=== PATIENT | female | born 1975 | race Caucasian/White ===

== ENCOUNTER → 2017-06-28 | Outpatient (CLI) | payer BC | END | disposition home or self-care (01) | LOC: RADMRIMAIN 17:26 | PROVIDERS: ATTEND Nurse Practitioner Family | DX: Z53.9 Procedure and treatment not carried out, unspecified reason (principal) ==

== ENCOUNTER → 2018-04-20 | Outpatient (CLI) | payer BC ==
[2018-04-20 09:52] LABS: Basophils % (A) 0 %; Eosinophils # (A) 0.1 k/uL (0-0.7); Eosinophils % (A) 1 %; HCT 41.4 % (34.0-46.0); HGB 13.3 gm/dL (11.4-16.0); Lymphocytes # (A) 1.3 k/uL (1.0-4.8); Lymphocytes % (A) 17 %; MCH 28.5 pg (25.0-35.0); MCHC 32.1 g/dL (31.0-37.0); MCV 88.7 fL (80.0-100.0); Mean Platelet Volume 6.6; Monocytes # (A) 0.4 k/uL (0-1.0); Monocytes % (A) 5 %; Neutrophils # (A) 5.6 k/uL (1.3-7.7); Neutrophils % (A) 75 %; Platelet Count 259 k/uL (150-450); RBC 4.67 m/uL (3.80-5.40); RDW 12.9 % (11.5-15.5); WBC 7.5 k/uL (3.8-10.6)
[2018-04-20 10:06] LABS: ALT 71 U/L (9-52); AST 81 U/L (14-36); Albumin 4.3 g/dL (3.5-5.0); Alkaline Phosphatase 134 U/L (38-126); Anion Gap 10 mmol/L; Blood Urea Nitrogen 19 mg/dL (7-17); Calcium 9.4 mg/dL (8.4-10.2); Carbon Dioxide 26 mmol/L (22-30); Chloride 103 mmol/L (98-107); Cholesterol 207 mg/dL (<200); Glucose 87 mg/dL (74-99); HDL Cholesterol 60 mg/dL (40-60); LDL Cholesterol,Calculated 134 mg/dL (0-99); Potassium 4.4 mmol/L (3.5-5.1); Sodium 139 mmol/L (137-145); Total Bilirubin 0.5 mg/dL (0.2-1.3); Total Protein 7.3 g/dL (6.3-8.2); Triglycerides 64 mg/dL (<150)
== END | disposition home or self-care (01) ==
LOC: LABWHC1 08:58
PROVIDERS: ATTEND Physician Assistant
DX: E11.65 Type 2 diabetes mellitus with hyperglycemia (principal); E66.9 Obesity, unspecified; E78.2 Mixed hyperlipidemia; Z85.6 Personal history of leukemia
CPT/HCPCS: 36415; 80053; 80061; 84443; 85025

== ENCOUNTER 2018-07-30 08:59 | Inpatient (IN) | payer BC ==
[2018-07-30] MEDS ORDERED: IPRATROPIUM-ALBUTEROL 3 ML NEB INHALATION PRN (09:31)
[2018-07-30] MEDS: SODIUM CHLORIDE 0.9% 1,000 ML IV SCH ×2 (10:21→21:06)
[2018-07-30] MEDS: methylPREDNISolone SOD SUCCI 250 MG in SODIUM CHLORIDE 0.9% 100 ML IVPB SCH ×3 (10:21→21:06)
[2018-07-30 10:42] LABS: Basophils % (A) 0 %; Eosinophils # (A) 0.1 k/uL (0-0.7); Eosinophils % (A) 2 %; HCT 41.1 % (34.0-46.0); HGB 13.3 gm/dL (11.4-16.0); Lymphocytes % (A) 24 %; MCH 29.7 pg (25.0-35.0); MCHC 32.3 g/dL (31.0-37.0); MCV 91.9 fL (80.0-100.0); Mean Platelet Volume 6.2; Monocytes # (A) 0.5 k/uL (0-1.0); Monocytes % (A) 6 %; Neutrophils # (A) 5.6 k/uL (1.3-7.7); Neutrophils % (A) 67 %; Platelet Count 219 k/uL (150-450); RBC 4.47 m/uL (3.80-5.40); WBC 8.4 k/uL (3.8-10.6)
[2018-07-30] MEDS ORDERED: PNEUMOCOCCAL VACC-PNEUMOVAX 23 25 MCG/0.5 ML VIAL IM ONE (10:49)
[2018-07-30 10:52] LABS: ALT 39 U/L (9-52); AST 20 U/L (14-36); Albumin 3.5 g/dL (3.5-5.0); Alkaline Phosphatase 86 U/L (38-126); Anion Gap 7 mmol/L; Blood Urea Nitrogen 27 mg/dL (7-17); Calcium 9.2 mg/dL (8.4-10.2); Carbon Dioxide 25 mmol/L (22-30); Chloride 107 mmol/L (98-107); Glucose 99 mg/dL (74-99); Potassium 4.1 mmol/L (3.5-5.1); Sodium 139 mmol/L (137-145); Total Bilirubin 0.5 mg/dL (0.2-1.3); Total Protein 6.5 g/dL (6.3-8.2)
[2018-07-30 11:41] LABS: Glucose,Whole Blood 87 mg/dL (75-99)
[2018-07-30] MEDS: INSULIN ASPART 100 UNIT/ML 1 ML 10 ML VIAL SQ SCH ×3 (11:46→21:06)
[2018-07-30] MEDS: IPRATROPIUM-ALBUTEROL 3 ML NEB INHALATION SCH ×3 (11:55→20:49)
[2018-07-30] MEDS ORDERED: INSULIN ASPART 100 UNIT/ML 1 ML 10 ML VIAL SQ SCH (12:30)
[2018-07-30] MEDS ORDERED: valACYclovir HCL 1,000 MG TABLET PO PRN (12:41)
[2018-07-30] MEDS ORDERED: ALPRAZolam 0.25 MG TAB PO PRN (12:41)
[2018-07-30] MEDS ORDERED: ESTRADIOL 0.1 MG/GM VAGINAL CREAM 42.5 GM TUBE VAGINAL SCH (12:45)
--- NOTE | 2018-07-30 12:46 | P.CNPUL ---
History of Present Illness Consult date: 07/30/18 Reason for consult: dyspnea, cough, asthma, hypoxemia, abnormal CXR/CT Chief complaint: Shortness of breath, chronic xqdlq-cmrftx-fsah disease. History of present illness: Pulmonary consult dated 07/30/2018 This is a 43-year-old female status post allogeneic bone marrow transplant back in 1998. 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 The patient's a bone marrow transplant was done at [facility]. More recently, beginning in March of last year, I started seeing the patient because of increasing and progressive shortness of breath. I suspected that she had chronic drhlq-jwbmmt-bgec disease in the form of bronchiolitis obliterans syndrome. The patient was trialed on breathing treatments. Seemed to help a bit. In addition we added some inhalers. That also seemed to help initially. More recently, because of worsening symptoms of shortness of breath and cough, and because of declining lung function, the patient was given prednisone at 1 mg/kg body weight per day. She seemed to improve initially but then got worse again. For that reason, we decided to admit her to the hospital for high-dose IV Solu-Medrol. I did mention to her that should this not help things, she may be a candidate for alternative therapy including photopheresis, plasmapheresis, IVIG, rituximab, additional immunosuppressants such as cyclosporine, Prograf, CellCept, or even lung transplantation. Likely, if she does not respond, I will send her back to [facility] which is where she had her bone marrow transplantation. In addition to asthma, she has a history of diabetes gastroesophageal reflux disease and hyperlipidemia. She also has a history of hypertension. Her home medications include Advair albuterol inhaler albuterol updrafts Glucotrol omeprazole Singulair multivitamins Estrace cream ascorbic acid and Valtrex Zetia Wellbutrin lisinopril insulin glargine Lipitor and Xanax Review of Systems A 14 point review of system is positive for shortness of breath chest tightness wheezing cough. No significant phlegm production. No chest pain or chest discomfort. 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 Pt has clausterphobia. Smoking Status: Never smoker - Past Family History Father Additional Family Medical History / Comment(s): Fathr of a drug overdose. Mother Family Medical History: Coronary Artery Disease (CAD), Diabetes Mellitus Additional Family Medical History / Comment(s): Mother had CABG and aortic aneurysm repair. Medications and Allergies Home Medications Medication Instructions Recorded Confirmed Type ALPRAZolam [Xanax] 0.25 mg PO DAILY PRN 07/30/18 07/30/18 History Albuterol Inhaler [Ventolin Hfa 2 puff INHALATION RT-Q6H PRN 07/30/18 07/30/18 History Inhaler] Albuterol Nebulized [Ventolin 2.5 mg INHALATION RT-Q4H PRN 07/30/18 07/30/18 History Nebulized] Ascorbic Acid [Vitamin C] 500 mg PO DAILY 07/30/18 07/30/18 History Atorvastatin [Lipitor] 40 mg PO DAILY 07/30/18 07/30/18 History Estradiol Cream [Estrace Cream 1 gm VAGINAL DIRECTED 07/30/18 07/30/18 History 0.01%] Ezetimibe [Zetia] 10 mg PO DAILY 07/30/18 07/30/18 History Fluticasone/Salmeterol [Advair 1 inhalation PO RT-BID 07/30/18 07/30/18 History 250-50 Diskus] Insulin Glargine [Lantus] 30 unit SQ BID 07/30/18 07/30/18 History Lisinopril [Prinivil] 5 mg PO DAILY 07/30/18 07/30/18 History Montelukast [Singulair] 10 mg PO DAILY 07/30/18 07/30/18 History Multivitamin,Therapeutic [Thera] 1 tab PO DAILY 07/30/18 07/30/18 History Omeprazole 40 mg PO BID 07/30/18 07/30/18 History buPROPion HCL [Wellbutrin XL] 300 mg PO DAILY 07/30/18 07/30/18 History glipiZIDE [Glucotrol] 5 mg PO TID 07/30/18 07/30/18 History valACYclovir HCL [Valtrex] 1,000 mg PO DAILY PRN 07/30/18 07/30/18 History Allergies Allergy/AdvReac Type Severity Reaction Status Date / Time codeine Allergy Severe Anaphylaxis Verified 07/30/18 11:14 Sulfa (Sulfonamide Allergy Intermediate Rash/Hives Verified 07/30/18 11:14 Antibiotics) Physical Exam Osteopathic Statement: *. No significant issues noted on an osteopathic structural exam other than those noted in the History and Physical/Consult. Vitals: Vital Signs Temp Pulse Pulse Resp BP Pulse Ox 07/30/18 12:02 80 07/30/18 11:58 79 07/30/18 11:23 18 07/30/18 09:29 99.8 F H 97 16 107/67 94 L Intake and Output 07/29/18 07/30/18 07/30/18 22:59 06:59 14:59 Other: Weight 106 kg No acute distress, oriented 3. No justin respiratory distress. No audible wheezing. No use of accessory muscles. HEENT examination is grossly unremarkable. Mucous membranes are moist. No oral lesions. Neck supple. Full range of motion. No adenopathy thyromegaly or neck vein distention. Cardiovascular examination reveals regular rhythm rate. S1-S2 normal. No S3 or S4. No discernible murmur noted. Lungs reveal diffuse bilateral expiratory wheezes. No rhonchi or crackles are appreciated. Breath sounds are equal bilaterally. There is prolongation on forced maneuver.. Abdomen soft bowel sounds are heard. No masses or tenderness. Extremities are intact. No cyanosis clubbing or edema. Skin is without rash or lesion. Neurologic examination is brief but nonfocal. Results - Laboratory Findings CBC and BMP: 07/30/18 10:21 07/30/18 10:21 Abnormal lab findings: Abnormal Labs 07/30/18 10:21 BUN 27 H - Diagnostic Findings Additional studies: Chest x-ray, labs and medications are all reviewed. Assessment and Plan Assessment: Assessment Progressive shortness of breath and decline in lung function, related to chronic rlyzm-quxakd-zmnv disease secondary to bronchiolitis obliterans syndrome Status post allogeneic bone marrow transplant, 1998, for acute myelogenous leukemia History of diabetes History of asthma History of hypertension Hyperlipidemia Gastroesophageal reflux disease Plan: Plan dated 07/30/2018 The patient will be given high-dose IV Solu-Medrol. We'll give her 250 mg IV push every 6 hours for 3 days. The patient will receive all her other medications. We'll have the hospitalist creative services designer hypoglycemia which is down to occur because of her high doses of Solu-Medrol. She does have a history of diabetes as well. In addition, we'll put her on her other medications including long-acting beta agonist, inhaled corticosteroids, DuoNeb , and Singulair. In addition, we will resume her hypertensive medications and her medications for high cholesterol. Labs are ordered. X-ray is ordered. Prognosis is guarded. I did spend a great deal time talking to her about the issues down the road including ALTERNATIVE therapies as mentioned above. This would include but not limited to rituximab, antithymocyte globulin, plasmapheresis, photopheresis, IVIG, and the addition of antirejection medication such as CellCept, cyclosporine, or Prograf. Time with Patient: Greater than 30
--- NOTE | 2018-07-30 12:51 | P.HPIM ---
History of Present Illness 43-year-old with history of bone marrow transplant is being admitted for IV steroids for possible lsajg-gbseih-deuq reaction in the lung rejection. Patient had acute myelogenous leukemia and bone marrow transplant in 1998. Patient does have some shortness of breath Pulmonary function tests are progressively getting worse. Patient does have diabetes mellitus her Lantus dose was increased to 30 units twice a day and is all and also takes glipizide since patient is on high doses of steroids increase the Lantus to 45 units twice a day along with steroids scale insulin. Patient denied any fever chills. Review of Systems REVIEW OF SYSTEMS: CONSTITUTIONAL: No fever, no malaise, no fatigue. HEENT: No recent visual problems or hearing problems. Denied any sore throat. CARDIOVASCULAR: No chest pain, orthopnea, PND, no palpitations, no syncope. PULMONARY:no cough, no hemoptysis. GASTROINTESTINAL: No diarrhea, no nausea, no vomiting, no abdominal pain. Normoactive bowel sounds. NEUROLOGICAL: No headaches, no weakness, no numbness. HEMATOLOGICAL: Denies any bleeding or petechiae. GENITOURINARY: Denies any burning micturition, frequency, or urgency. MUSCULOSKELETAL/RHEUMATOLOGICAL: Denies any joint pain, swelling, or any muscle pain. ENDOCRINE: Denies any polyuria or polydipsia. The rest of the 14-point review of systems is negative. 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 Pt has clausterphobia. Smoking Status: Never smoker - Past Family History Father Additional Family Medical History / Comment(s): Fathr of a drug overdose. Mother Family Medical History: Coronary Artery Disease (CAD), Diabetes Mellitus Additional Family Medical History / Comment(s): Mother had CABG and aortic aneurysm repair. Medications and Allergies Home Medications Medication Instructions Recorded Confirmed Type ALPRAZolam [Xanax] 0.25 mg PO DAILY PRN 07/30/18 07/30/18 History Albuterol Inhaler [Ventolin Hfa 2 puff INHALATION RT-Q6H PRN 07/30/18 07/30/18 History Inhaler] Albuterol Nebulized [Ventolin 2.5 mg INHALATION RT-Q4H PRN 07/30/18 07/30/18 History Nebulized] Ascorbic Acid [Vitamin C] 500 mg PO DAILY 07/30/18 07/30/18 History Atorvastatin [Lipitor] 40 mg PO DAILY 07/30/18 07/30/18 History Estradiol Cream [Estrace Cream 1 gm VAGINAL DIRECTED 07/30/18 07/30/18 History 0.01%] Ezetimibe [Zetia] 10 mg PO DAILY 07/30/18 07/30/18 History Fluticasone/Salmeterol [Advair 1 inhalation PO RT-BID 07/30/18 07/30/18 History 250-50 Diskus] Insulin Glargine [Lantus] 30 unit SQ BID 07/30/18 07/30/18 History Lisinopril [Prinivil] 5 mg PO DAILY 07/30/18 07/30/18 History Montelukast [Singulair] 10 mg PO DAILY 07/30/18 07/30/18 History Multivitamin,Therapeutic [Thera] 1 tab PO DAILY 07/30/18 07/30/18 History Omeprazole 40 mg PO BID 07/30/18 07/30/18 History buPROPion HCL [Wellbutrin XL] 300 mg PO DAILY 07/30/18 07/30/18 History glipiZIDE [Glucotrol] 5 mg PO TID 07/30/18 07/30/18 History valACYclovir HCL [Valtrex] 1,000 mg PO DAILY PRN 07/30/18 07/30/18 History Allergies Allergy/AdvReac Type Severity Reaction Status Date / Time codeine Allergy Severe Anaphylaxis Verified 07/30/18 11:14 Sulfa (Sulfonamide Allergy Intermediate Rash/Hives Verified 07/30/18 11:14 Antibiotics) Physical Exam Vitals: Vital Signs Temp Pulse Pulse Resp BP Pulse Ox 07/30/18 12:02 80 07/30/18 11:58 79 07/30/18 11:23 18 07/30/18 09:29 99.8 F H 97 16 107/67 94 L Intake and Output 07/29/18 07/30/18 07/30/18 22:59 06:59 14:59 Other: Weight 106 kg PHYSICAL EXAMINATION: GENERAL: The patient is alert and oriented x3, not in any acute distress. Well developed, well nourished. HEENT: Pupils are round and equally reacting to light. EOMI. No scleral icterus. No conjunctival pallor. Normocephalic, atraumatic. No pharyngeal erythema. No thyromegaly. CARDIOVASCULAR: S1 and S2 present. No murmurs, rubs, or gallops. PULMONARY: Chest is clear to auscultation, no wheezing or crackles. ABDOMEN: Soft, nontender, nondistended, normoactive bowel sounds. No palpable organomegaly. MUSCULOSKELETAL: No joint swelling or deformity. EXTREMITIES: No cyanosis, clubbing, or pedal edema. NEUROLOGICAL: Gross neurological examination did not reveal any focal deficits. SKIN: No rashes. Results CBC & Chem 7: 07/30/18 10:21 07/30/18 10:21 Labs: Abnormal Lab Results - Last 24 Hours (Table) 07/30/18 Range/Units 10:21 BUN 27 H (7-17) mg/dL Thrombosis Risk Factor Assmnt - Choose All That Apply Any of the Below Risk Factors Present?: Yes Each Factor Represents 1 point: Age 41-60 years, Obesity (BMI >25) Other Risk Factors: Yes Each Risk Factor Represents 2 Points: Malignancy Other congenital or acquired thrombophilia - If yes, enter type in comment: No Thrombosis Risk Factor Assessment Total Risk Factor Score: 4 Thrombosis Risk Factor Assessment Level: Moderate Risk Assessment and Plan Plan: Progressive shortness of breath with the declining lung function possibility of chronic dleri-ootbex-wufb reaction affecting the lung: Patient is on high-dose steroids which will be continued patient is on empiric azithromycin and Valtrex which will be continued patient will need GI prophylaxis due to high-dose steroids -History of myelogenous leukemia status post bone marrow transplant -Uncontrolled blood sugars type 2 diabetes mellitus: Uncontrolled blood sugars and elevated blood sugars secondary to systemic steroids further management as mentioned in the history -Hypertension -Hyperlipidemia -Gastroesophageal reflux disease For above-mentioned chronic medical problems patient will be resumed and continued on appropriate home medications.
[2018-07-30] MEDS: AZITHROMYCIN 250 MG TAB PO SCH (12:54)
--- NOTE | 2018-07-30 13:58 | XR ---
EXAMINATION TYPE: XR chest 2V DATE OF EXAM: 07/30/2018 COMPARISON: Prior chest x-ray December 03, 2017 HISTORY: History of asthma with shortness of breath TECHNIQUE: Frontal and lateral views of the chest are obtained. FINDINGS: Stable mild central peribronchial wall thickening. There is no focal air space opacity, ple ural effusion, or pneumothorax seen. The cardiac silhouette size is within normal limits. The osse ous structures are intact. IMPRESSION: Overall stable findings, mild central peribronchial cuffing may be product of bronchitis or reactive airway disease. Correlate for acute asthma exacerbation.
[2018-07-30 16:59] LABS: Glucose,Whole Blood 339 mg/dL (75-99)
[2018-07-30] MEDS: PANTOPRAZOLE 40 MG TABLET PO SCH (17:58)
[2018-07-30] MEDS: glipiZIDE 5 MG TAB PO SCH (17:58)
[2018-07-30 19:26] LABS: Hemoglobin A1C 9.5 % (4.0-6.0)
[2018-07-30] MEDS ORDERED: BUDESONIDE 0.5 MG/2 ML NEBU INHALATION SCH (20:00)
[2018-07-30 20:36] LABS: Glucose,Whole Blood 301 mg/dL (75-99)
[2018-07-30] MEDS: BUDESONIDE 1 MG/2 ML NEBU INHALATION SCH (20:49)
[2018-07-30] MEDS: FORMOTEROL FUMARATE 20 MCG/2 ML NEBU INHALATION SCH (20:49)
[2018-07-30] MEDS: INSULIN DETEMIR 100 UNIT/ML 10 ML VIAL SQ SCH (21:06)
[2018-07-30] MEDS: MONTELUKAST 10 MG TAB PO SCH (21:06)
[2018-07-31] MEDS: methylPREDNISolone SOD SUCCI 250 MG in SODIUM CHLORIDE 0.9% 100 ML IVPB SCH ×4 (04:35→21:28)
[2018-07-31] MEDS: FORMOTEROL FUMARATE 20 MCG/2 ML NEBU INHALATION SCH ×2 (06:58→20:11)
[2018-07-31] MEDS: IPRATROPIUM-ALBUTEROL 3 ML NEB INHALATION SCH ×4 (06:58→20:11)
[2018-07-31] MEDS: BUDESONIDE 1 MG/2 ML NEBU INHALATION SCH ×2 (06:59→20:11)
[2018-07-31 07:17] LABS: Glucose,Whole Blood 233 mg/dL (75-99)
[2018-07-31] MEDS: INSULIN DETEMIR 100 UNIT/ML 10 ML VIAL SQ SCH ×2 (08:18→21:29)
[2018-07-31] MEDS: PANTOPRAZOLE 40 MG TABLET PO SCH ×2 (08:19→18:04)
[2018-07-31] MEDS: INSULIN ASPART 100 UNIT/ML 1 ML 10 ML VIAL SQ SCH ×4 (08:19→21:29)
[2018-07-31] MEDS: glipiZIDE 5 MG TAB PO SCH ×3 (08:20→18:04)
[2018-07-31] MEDS: AZITHROMYCIN 250 MG TAB PO SCH (08:20)
[2018-07-31] MEDS: buPROPion XL 300 MG TAB.ER.24H PO SCH (08:20)
[2018-07-31] MEDS: LISINOPRIL 5 MG TAB PO SCH (08:20)
[2018-07-31] MEDS: EZETIMIBE 10 MG TAB PO SCH (08:20)
[2018-07-31] MEDS: ATORVASTATIN 40 MG TAB PO SCH (08:20)
[2018-07-31] MEDS ORDERED: INSULIN DETEMIR 100 UNIT/ML 10 ML VIAL SQ ONE (11:00)
[2018-07-31] MEDS: ACETAMINOPHEN TAB 325 MG TAB PO PRN (12:07)
[2018-07-31 12:14] LABS: Glucose,Whole Blood 319 mg/dL (75-99)
[2018-07-31 12:20] VITALS: BMI 42.7
[2018-07-31] MEDS: SODIUM CHLORIDE 0.9% 1,000 ML IV SCH (13:04)
--- NOTE | 2018-07-31 13:44 | P.PN ---
Subjective Progress Note Date: 07/31/18 Principal diagnosis: Shortness of breath, xmixj-yhfcfa-ibxr disease, bronchiolitis obliterans syndrome Progress note dated 07/31/2018 43-year-old female with a history of chronic bronchial asthma and a history of previous allogenic bone marrow transplant for acute myelogenous leukemia. Unfortunately, the patient has developed chronic qznaj-krnjft-crmp disease in the lung in the form of bronchiolitis obliterans syndrome. She was tried on bronchodilators and inhaled corticosteroids with only minimal benefit. Subsequent to that, she received low and then high-dose prednisone at 1 mg/kg body weight. Despite that, she did not improve and her lung function was declining. Hence, she was admitted to the hospital for high-dose Solu-Medrol. She is getting 250 mg of Solu-Medrol IV push every 6 hours for 12 doses. If this does not work, the patient will need alternative therapy such as rituximab , cirrhosis, plasmapheresis, IVIG, or other immunosuppressives. In addition, should she not respond to any of these therapies, she should be evaluated for lung transplantation. I likely will send her back to [facility] for evaluation should she not respond. I am happy to report today that she is feeling much better. She is much less short of breath. Also exam is much improved. I appreciate the help from our hospitalist colleagues who are managing her blood sugar. Objective - Vital Signs Vital signs: Vital Signs Temp 97.7 F 07/31/18 12:41 Pulse 96 07/31/18 12:47 Resp 16 07/31/18 12:47 BP 115/57 07/31/18 12:41 Pulse Ox 96 07/31/18 12:41 Intake & Output 07/30/18 07/31/18 07/31/18 18:59 06:59 18:59 Intake Total 120 Balance 120 Weight 106 kg 106 kg Intake: Oral 120 Other: Voiding Method Toilet Toilet # Voids 2 1 - Exam No acute distress, oriented 3. No justin respiratory distress. No audible wheezing. No use of accessory muscles. HEENT examination is grossly unremarkable. Mucous membranes are moist. No oral lesions. Neck supple. Full range of motion. No adenopathy thyromegaly or neck vein distention. Cardiovascular examination reveals regular rhythm rate. S1-S2 normal. No S3 or S4. No discernible murmur noted. Lungs reveal diffuse bilateral expiratory wheezes. No rhonchi or crackles are appreciated. Breath sounds are equal bilaterally. There is prolongation on forced maneuver. Breath sounds are much improved today compared to yesterday's examination. Abdomen soft bowel sounds are heard. No masses or tenderness. Extremities are intact. No cyanosis clubbing or edema. Skin is without rash or lesion. Neurologic examination is brief but nonfocal. - Labs CBC & Chem 7: 07/30/18 10:21 07/30/18 10:21 Labs: Abnormal Lab Results - Last 24 Hours (Table) 07/30/18 07/30/18 07/30/18 Range/Units 10:21 16:53 20:35 POC Glucose (mg/dL) 339 H 301 H (75-99) mg/dL Hemoglobin A1c 9.5 H (4.0-6.0) % 07/31/18 07/31/18 Range/Units 07:09 12:00 POC Glucose (mg/dL) 233 H 319 H (75-99) mg/dL Hemoglobin A1c (4.0-6.0) % Assessment and Plan Assessment: Assessment Progressive shortness of breath and decline in lung function, related to chronic lukxb-wgczgi-mglm disease secondary to bronchiolitis obliterans syndrome Status post allogeneic bone marrow transplant, 1998, for acute myelogenous leukemia History of diabetes History of asthma History of hypertension Hyperlipidemia Gastroesophageal reflux disease Plan: Plan dated 07/30/2018 The patient will be given high-dose IV Solu-Medrol. We'll give her 250 mg IV push every 6 hours for 3 days. The patient will receive all her other medications. We'll have the hospitalist air deodorizer servicer hypoglycemia which is down to occur because of her high doses of Solu-Medrol. She does have a history of diabetes as well. In addition, we'll put her on her other medications including long-acting beta agonist, inhaled corticosteroids, DuoNeb , and Singulair. In addition, we will resume her hypertensive medications and her medications for high cholesterol. Labs are ordered. X-ray is ordered. Prognosis is guarded. I did spend a great deal time talking to her about the issues down the road including ALTERNATIVE therapies as mentioned above. This would include but not limited to rituximab, antithymocyte globulin, plasmapheresis, photopheresis, IVIG, and the addition of antirejection medication such as CellCept, cyclosporine, or Prograf. Plan dated 07/31/2018 I'm happy to report that the patient seems to be improving. We'll continue with the high dose Solu-Medrol for a complete 3 days with 12 treatments. Afterwards, we'll discharge her on a modest dose of prednisone probably 40 or 50 mg a day. She will follow up with the office. We'll do a complete pulmonary function test on her. Should her lung function improved, we'll continue to observe and watch. She should continue to have symptoms or should she have declining lung function, the patient will be sent to [facility] for alternative therapy as mentioned above. Her labs and x-rays are reviewed. Everything looks okay. We'll continue to follow. In addition, I just wanted again thank are hospitalist colleagues for managing the patient's other medical problems including her diabetes hyperlipidemia and hypertension. Time with Patient: Less than 30
--- NOTE | 2018-07-31 13:58 | CDI ---
Last Revision, August 2017 Documentation Clarification Form Date: 07/31/2018 1:48:20 PM From: Vy Watson [facility], CCDS Admit Date: 07/30/2018 8:59:00 AM Patient Name: Emani Garcia Visit Number: [id number] Discharge Date: ATTENTION: The Clinical Documentation Specialists (CDI) and [facility] Coding Staff appreciate your assistance in clarifying documentation. Please respond to the clarification below the line at the bottom and electronically sign. The CDI & [facility] Coding staff will review the response and follow-up if needed. Please note: Queries are made part of the Legal Health Record. If you have any questions, please contact the author of this message via ITS. Baldev Liu , DO: Asthma is documented in your pulmonary consult. Patient history/risk factors: Graft vs Host Disease after bone marrow transplant for myelogenous leukemia, Insulin dependent diabetes, GERD, hyperlipidemia, hypertension. Clinical Indicators: Presented with SOB & cough. Radiology: CXR: Stable, mild central peribronchial cuffing may be product of bronchitis or reactive airway disease. Correlate for acute asthma exacerbation. Vital Signs: T 99.8^, R 16-18 (cough, SOB), BP 107/67, PO 94 ra Treatment: IV fl 75, Albuterol INH, IV solumedrol. Home meds: Advair albuterol inhaler albuterol updrafts Glucotrol, omeprazole Singulair multivitamins Estrace cream ascorbic acid and Valtrex, Zetia Wellbutrin, Lisinopril, Insulin glargine, Lipitor and Xanax. In your professional opinion, can you please further specify the acuity & type of asthma, if known? Acute Exacerbation o With/without Status asthmaticus o Acute lower respiratory infection o COPD (specify with or without exacerbation) o Chronic obstructive bronchitis Other, please specify Unable to determine Severity: o Mild intermittent o Mild persistent o Moderate persistent o Severe persistent o Other, please specify o Unable to determine Form or Type: o Cough variant o Exercise induced bronchospasm o Extrinsic allergic o Idiosyncratic o Intrinsic nonallergic o Late-onset o Mixed o Other, please specify o Unable to determine Acute on chronic moderate asthma MTDD
[2018-07-31 17:24] LABS: Glucose,Whole Blood 271 mg/dL (75-99)
[2018-07-31 21:15] LABS: Glucose,Whole Blood 337 mg/dL (75-99)
[2018-07-31] MEDS: MONTELUKAST 10 MG TAB PO SCH (21:27)
[2018-08-01] MEDS: SODIUM CHLORIDE 0.9% 1,000 ML IV SCH (03:40)
[2018-08-01] MEDS: methylPREDNISolone SOD SUCCI 250 MG in SODIUM CHLORIDE 0.9% 100 ML IVPB SCH ×4 (03:41→20:59)
[2018-08-01 07:47] LABS: Glucose,Whole Blood 217 mg/dL (75-99)
[2018-08-01] MEDS: INSULIN ASPART 100 UNIT/ML 1 ML 10 ML VIAL SQ SCH ×4 (08:14→20:53)
[2018-08-01] MEDS: ACETAMINOPHEN TAB 325 MG TAB PO PRN (08:14)
[2018-08-01] MEDS: INSULIN DETEMIR 100 UNIT/ML 10 ML VIAL SQ SCH ×2 (08:14→20:54)
[2018-08-01] MEDS: AZITHROMYCIN 250 MG TAB PO SCH (08:15)
[2018-08-01] MEDS: EZETIMIBE 10 MG TAB PO SCH (08:15)
[2018-08-01] MEDS: ATORVASTATIN 40 MG TAB PO SCH (08:15)
[2018-08-01] MEDS: glipiZIDE 5 MG TAB PO SCH ×3 (08:15→17:47)
[2018-08-01] MEDS: LISINOPRIL 5 MG TAB PO SCH (08:15)
[2018-08-01] MEDS: PANTOPRAZOLE 40 MG TABLET PO SCH ×2 (08:15→17:47)
[2018-08-01] MEDS: buPROPion XL 300 MG TAB.ER.24H PO SCH (08:15)
[2018-08-01] MEDS: BUDESONIDE 1 MG/2 ML NEBU INHALATION SCH ×2 (08:44→19:41)
[2018-08-01] MEDS: IPRATROPIUM-ALBUTEROL 3 ML NEB INHALATION SCH ×4 (08:44→19:41)
[2018-08-01] MEDS: FORMOTEROL FUMARATE 20 MCG/2 ML NEBU INHALATION SCH ×2 (08:44→19:41)
--- NOTE | 2018-08-01 10:03 | P.PN ---
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 Unfortunately, the patient has developed chronic azmii-dlvfpz-yrbh disease in the lung in the form of bronchiolitis obliterans syndrome. She was tried on bronchodilators and inhaled corticosteroids with only minimal benefit. Subsequent to that, she received low and then high-dose prednisone at 1 mg/kg body weight. Despite that, she did not improve and her lung function was declining. Hence, she was admitted to the hospital for high-dose Solu-Medrol. She is getting 250 mg of Solu-Medrol IV push every 6 hours for 12 doses. If this does not work, the patient will need alternative therapy such as rituximab , cirrhosis, plasmapheresis, IVIG, or other immunosuppressives. In addition, should she not respond to any of these therapies, she should be evaluated for lung transplantation. I likely will send her back to [facility] for evaluation should she not respond. I am happy to report today that she is feeling much better. She is much less short of breath. Also exam is much improved. I appreciate the help from our hospitalist colleagues who are managing her blood sugar. On 08/01/2018 patient seen in follow-up on medical surgical floor, she states her breathing is easier, she is less short of breath, wheezing is improving, he has received 8 out of 12 doses of IV steroids, she has 4 more to go. Patient is afebrile, pulse ox is 97%, he has been ambulating within the room, and tolerating activity well. No new chest x-rays today, no new labs. Objective - Vital Signs Vital signs: Vital Signs Temp 96.9 F L 08/01/18 07:49 Pulse 96 08/01/18 09:04 Resp 16 08/01/18 07:49 BP 108/59 08/01/18 07:49 Pulse Ox 97 08/01/18 07:49 Intake & Output 07/31/18 08/01/18 08/01/18 18:59 06:59 18:59 Intake Total 395 940 240 Balance 395 940 240 Weight 106 kg 106 kg Intake: Oral 395 940 240 Other: Voiding Method Toilet Toilet # Voids 2 2 - Exam No acute distress, oriented 3. No justin respiratory distress. No audible wheezing. No use of accessory muscles. HEENT examination is grossly unremarkable. Mucous membranes are moist. No oral lesions. Neck supple. Full range of motion. No adenopathy thyromegaly or neck vein distention. Cardiovascular examination reveals regular rhythm rate. S1-S2 normal. No S3 or S4. No discernible murmur noted. Lungs reveal a few scattered wheezes. No rhonchi or crackles are appreciated. Breath sounds are equal bilaterally. There is prolongation on forced maneuver. Breath sounds are much improved today compared to yesterday's examination. Abdomen soft bowel sounds are heard. No masses or tenderness. Extremities are intact. No cyanosis clubbing or edema. Skin is without rash or lesion. Neurologic examination is brief but nonfocal. 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 Patient has received 8 out of 12 treatments of IV Solu- Medrol, she has 4 more to go, there improvement in next 24 hours, and possible discharge home provided patient continues to improve. Tinea without other medical treatments, I performed a history & physical examination of the patient and discussed their management with my nurse practitioner, Meredith Green. I reviewed the nurse practitioner's note and agree with the documented findings and plan of care. Lung sounds are positive for a few scattered wheezes. The findings and the impression was discussed with the patient. I attest to the documentation by the nurse practitioner. Time with Patient: Less than 30
[2018-08-01] MEDS ORDERED: INSULIN ASPART 100 UNIT/ML 1 ML 10 ML VIAL SQ ONE ×2 (10:06→20:35)
[2018-08-01 12:12] LABS: Glucose,Whole Blood 220 mg/dL (75-99)
[2018-08-01 17:21] LABS: Glucose,Whole Blood 301 mg/dL (75-99)
[2018-08-01 20:43] LABS: Glucose,Whole Blood 256 mg/dL (75-99)
--- NOTE | 2018-08-01 20:56 | P.PN ---
Subjective Progress Note Date: 07/31/18 Progress note being dictated for Dr. Adam. 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 Patient had acute myelogenous leukemia and bone marrow transplant in 1998. Patient does have some shortness of breath Pulmonary function tests are progressively getting worse. Patient does have diabetes mellitus her Lantus dose was increased to 30 units twice a day and is all and also takes glipizide since patient is on high doses of steroids increase the Lantus to 45 units twice a day along with steroids scale insulin. Patient denied any fever chills. 07/31/18 maintained on high-dose IV steroids,empiric azithromycin and Valtrex, wheezing improving. Blood sugars elevated. Denies chest pain, palpitations or increased shortness of breath. Objective - Vital Signs Vital signs: Vital Signs Temp 98.5 F 08/01/18 15:00 Pulse 92 08/01/18 20:09 Resp 18 08/01/18 15:00 BP 102/57 08/01/18 15:00 Pulse Ox 94 L 08/01/18 15:00 Intake & Output 08/01/18 08/01/18 08/02/18 06:59 18:59 06:59 Intake Total 940 720 Balance 940 720 Weight 106 kg Intake: Oral 940 720 Other: Voiding Method Toilet # Voids 2 1 - Exam Vital Signs Temp 97.7 F 07/31/18 12:41 Pulse 96 07/31/18 12:47 Resp 16 07/31/18 12:47 BP 115/57 07/31/18 12:41 Pulse Ox 96 07/31/18 12:41 GENERAL: The patient is alert and oriented x3, sitting up in chair, no acute distress. HEENT: Pupils are round and equally reacting to light. EOMI. No scleral icterus. No conjunctival pallor. Normocephalic, atraumatic. CARDIOVASCULAR: S1 and S2 present. No murmurs, rubs, or gallops. PULMONARY: Chest is clear to auscultation, diffuse expiratory wheezing , no crackles. ABDOMEN: Soft, nontender, nondistended, normoactive bowel sounds. No palpable organomegaly. MUSCULOSKELETAL: No joint swelling or deformity. EXTREMITIES: No cyanosis, clubbing, or pedal edema. NEUROLOGICAL: Gross neurological examination did not reveal any focal deficits. SKIN: No rashes. - Labs CBC & Chem 7: 07/30/18 10:21 07/30/18 10:21 Labs: Abnormal Lab Results - Last 24 Hours (Table) 07/31/18 08/01/18 08/01/18 Range/Units 21:06 07:15 12:07 POC Glucose (mg/dL) 337 H 217 H 220 H (75-99) mg/dL 08/01/18 Range/Units 17:20 POC Glucose (mg/dL) 301 H (75-99) mg/dL Assessment and Plan Assessment: Progressive shortness of breath with the declining lung function possibility of chronic nqhwy-izzxbt-apxt reaction affecting the lung. -History of myelogenous leukemia status post bone marrow transplant -Uncontrolled blood sugars type 2 diabetes mellitus: Uncontrolled blood sugars and elevated blood sugars secondary to systemic steroids -Hypertension -Hyperlipidemia -Gastroesophageal reflux disease Plan: Continue on current medication regime ,monitoring and symptomatic treatment. Continue on high-dose IV steroids, Valtrex, azithromycin, PPI. Lantus increased with close monitoring of Accu-Cheks. Arrangements are being made for patient to follow-up with [facility] as per pulmonary after discharge. The impression and plan of care has been dictated as directed. : I performed a history and examination of this patient, discussed the same with the dictator. I agree with the dictator's note ,documented as a scribe. Any additional findings or plans will be noted.
[2018-08-01] MEDS: MONTELUKAST 10 MG TAB PO SCH (20:59)
[2018-08-01] MEDS ORDERED: INSULIN DETEMIR 100 UNIT/ML 10 ML VIAL SQ SCH (21:00)
--- NOTE | 2018-08-01 21:04 | P.PN ---
Subjective Progress Note Date: 08/01/18 Progress note being dictated for Dr. Adam. Interval history:43-year-old with history of bone marrow transplant is being admitted for IV steroids for possible ufbzg-kmmbqp-chib reaction in the lung rejection. Patient had acute myelogenous leukemia and bone marrow transplant in 1998. Patient does have some shortness of breath Pulmonary function tests are progressively getting worse. Patient does have diabetes mellitus her Lantus dose was increased to 30 units twice a day and is all and also takes glipizide since patient is on high doses of steroids increase the Lantus to 45 units twice a day along with steroids scale insulin. Patient denied any fever chills. 07/31/18 maintained on high-dose IV steroids,empiric azithromycin and Valtrex, wheezing improving. Blood sugars elevated. Denies chest pain, palpitations or increased shortness of breath. 08/01/2018 continues on high-dose IV steroids, with last dose scheduled for 6 AM tomorrow morning. Maintained on Valtrex and empiric azithromycin as well. Blood sugars low 200s, but continue trending up. Breathing continues to improve. Maintaining O2 sats in the high 90s on room air. Afebrile. Objective - Vital Signs Vital signs: Vital Signs Temp 98.5 F 08/01/18 15:00 Pulse 92 08/01/18 20:09 Resp 18 08/01/18 15:00 BP 102/57 08/01/18 15:00 Pulse Ox 94 L 08/01/18 15:00 Intake & Output 08/01/18 08/01/18 08/02/18 06:59 18:59 06:59 Intake Total 940 720 Balance 940 720 Weight 106 kg Intake: Oral 940 720 Other: Voiding Method Toilet # Voids 2 1 - Exam GENERAL: alert and oriented x3, sitting up in chair, no acute distress. HEENT: Pupils are round and equally reacting to light. EOMI. No scleral icterus. No conjunctival pallor. Normocephalic, atraumatic. CARDIOVASCULAR: S1 and S2 present. No murmurs, rubs, or gallops. PULMONARY: Chest is clear to auscultation, improving, minimal diffuse expiratory wheezing , no crackles. ABDOMEN: Soft, nontender, nondistended, normoactive bowel sounds. No palpable organomegaly. MUSCULOSKELETAL: No joint swelling or deformity. EXTREMITIES: No cyanosis, clubbing, or pedal edema. NEUROLOGICAL: Gross neurological examination did not reveal any focal deficits. SKIN: No rashes. - Labs CBC & Chem 7: 07/30/18 10:21 07/30/18 10:21 Labs: Abnormal Lab Results - Last 24 Hours (Table) 07/31/18 08/01/18 08/01/18 Range/Units 21:06 07:15 12:07 POC Glucose (mg/dL) 337 H 217 H 220 H (75-99) mg/dL 08/01/18 08/01/18 Range/Units 17:20 20:31 POC Glucose (mg/dL) 301 H 256 H (75-99) mg/dL Assessment and Plan Assessment: Progressive shortness of breath with the declining lung function possibility of chronic ponuw-vjergm-pvfh reaction affecting the lung. -History of myelogenous leukemia status post bone marrow transplant -Uncontrolled blood sugars type 2 diabetes mellitus: Uncontrolled blood sugars and elevated blood sugars secondary to systemic steroids -Hypertension -Hyperlipidemia -Gastroesophageal reflux disease Plan: Continue on current medication regime ,monitoring and symptomatic treatment. Continue on high-dose IV steroids, Valtrex, azithromycin, PPI. Lantus further increased with close monitoring of Accu-Cheks. Discharge planning in progress for tomorrow after completing last dose of IV steroids. Per pulmonary, arrangements are being made for patient to follow-up with [facility] after discharge. The impression and plan of care has been dictated as directed. : I performed a history and examination of this patient, discussed the same with the dictator. I agree with the dictator's note ,documented as a scribe. Any additional findings or plans will be noted.
[2018-08-02] MEDS: methylPREDNISolone SOD SUCCI 250 MG in SODIUM CHLORIDE 0.9% 100 ML IVPB SCH (05:04)
[2018-08-02] MEDS: BUDESONIDE 1 MG/2 ML NEBU INHALATION SCH (07:14)
[2018-08-02] MEDS: FORMOTEROL FUMARATE 20 MCG/2 ML NEBU INHALATION SCH (07:14)
[2018-08-02] MEDS: IPRATROPIUM-ALBUTEROL 3 ML NEB INHALATION SCH ×2 (07:15→11:03)
[2018-08-02 07:40] LABS: Glucose,Whole Blood 174 mg/dL (75-99)
[2018-08-02 08:07] VITALS: BP 125/68; RESP 18; TEMP 97.3
[2018-08-02] MEDS: LISINOPRIL 5 MG TAB PO SCH (08:24)
[2018-08-02] MEDS: buPROPion XL 300 MG TAB.ER.24H PO SCH (08:24)
[2018-08-02] MEDS: AZITHROMYCIN 250 MG TAB PO SCH (08:24)
[2018-08-02] MEDS: EZETIMIBE 10 MG TAB PO SCH (08:24)
[2018-08-02] MEDS: PANTOPRAZOLE 40 MG TABLET PO SCH (08:24)
[2018-08-02] MEDS: glipiZIDE 5 MG TAB PO SCH ×2 (08:24→12:44)
[2018-08-02] MEDS: ATORVASTATIN 40 MG TAB PO SCH (08:25)
[2018-08-02] MEDS: INSULIN DETEMIR 100 UNIT/ML 10 ML VIAL SQ SCH (08:25)
[2018-08-02] MEDS: INSULIN ASPART 100 UNIT/ML 1 ML 10 ML VIAL SQ SCH ×2 (08:29→12:44)
[2018-08-02 09:53] LABS: Basophils % (A) 0 %; Eosinophils # (A) 0.1 k/uL (0-0.7); Eosinophils % (A) 0 %; HCT 41.1 % (34.0-46.0); HGB 12.9 gm/dL (11.4-16.0); Lymphocytes # (A) 0.4 k/uL (1.0-4.8); Lymphocytes % (A) 2 %; MCH 29.5 pg (25.0-35.0); MCHC 31.5 g/dL (31.0-37.0); MCV 93.8 fL (80.0-100.0); Mean Platelet Volume 6.9; Monocytes # (A) 0.5 k/uL (0-1.0); Monocytes % (A) 3 %; Neutrophils # (A) 15.7 k/uL (1.3-7.7); Neutrophils % (A) 94 %; Platelet Count 206 k/uL (150-450); RBC 4.38 m/uL (3.80-5.40); RDW 13.3 % (11.5-15.5); WBC 16.8 k/uL (3.8-10.6)
[2018-08-02 09:56] LABS: Anion Gap 11 mmol/L; Blood Urea Nitrogen 33 mg/dL (7-17); Calcium 9.3 mg/dL (8.4-10.2); Carbon Dioxide 21 mmol/L (22-30); Chloride 108 mmol/L (98-107); Glucose 237 mg/dL (74-99); Potassium 3.8 mmol/L (3.5-5.1); Sodium 140 mmol/L (137-145)
[2018-08-02 11:14] VITALS: PULSE 105
[2018-08-02 12:03] LABS: Glucose,Whole Blood 214 mg/dL (75-99)
--- NOTE | 2018-08-02 13:09 | P.DS ---
Providers Date of admission: 07/30/18 08:59 Attending physician: Marshall Bronson Consults: 07/30/18 09:30 Consult Physician Routine Consulting Provider: Baldev Smith Reason/Comments: SOB Do you want consulting provider notified?: Yes Placement Type Exists?: Yes [facility] Course: 43-year-old with history of bone marrow transplant is being admitted for IV steroids for possible gegwn-endzmx-ysov reaction in the lung rejection. Patient had acute myelogenous leukemia and bone marrow transplant in 1998. Patient does have some shortness of breath Pulmonary function tests are progressively getting worse. Patient does have diabetes mellitus her Lantus dose was increased to 30 units twice a day and is all and also takes glipizide since patient is on high doses of steroids increase the Lantus to 45 units twice a day along with steroids scale insulin. Patient denied any fever chills. 07/31/18 maintained on high-dose IV steroids,empiric azithromycin and Valtrex, wheezing improving. Blood sugars elevated. Denies chest pain, palpitations or increased shortness of breath. 08/01/2018 continues on high-dose IV steroids, with last dose scheduled for 6 AM tomorrow morning. Maintained on Valtrex and empiric azithromycin as well. Blood sugars low 200s, but continue trending up. Breathing continues to improve. Maintaining O2 sats in the high 90s on room air. Afebrile. 08/02/2018 No overnight events patient is clinically doing well patient was switched to oral steroids and is being discharged today cleared by pulmonology and patient the will resume her home dose of Lantus and her blood sugars were well controlled at home with that regimen Exam GENERAL: alert and oriented x3, sitting up in chair, no acute distress. HEENT: Pupils are round and equally reacting to light. EOMI. No scleral icterus. No conjunctival pallor. Normocephalic, atraumatic. CARDIOVASCULAR: S1 and S2 present. No murmurs, rubs, or gallops. PULMONARY: Chest is clear to auscultation, improving, minimal diffuse expiratory wheezing , no crackles. ABDOMEN: Soft, nontender, nondistended, normoactive bowel sounds. No palpable organomegaly. MUSCULOSKELETAL: No joint swelling or deformity. EXTREMITIES: No cyanosis, clubbing, or pedal edema. NEUROLOGICAL: Gross neurological examination did not reveal any focal deficits. SKIN: No rashes. Assessment and Plan Assessment: Progressive shortness of breath with the declining lung function possibility of chronic szjkz-wnewkn-vwqd reaction affecting the lung. -History of myelogenous leukemia status post bone marrow transplant -Uncontrolled blood sugars type 2 diabetes mellitus: Elevated blood sugars he had secondary to IV steroids and patient will be resumed and switched back to her home dose of Lantus -Hypertension -Hyperlipidemia -Gastroesophageal reflux disease Plan - Discharge Summary Discharge Rx Participant: No New Discharge Prescriptions: New predniSONE [Deltasone] 40 mg PO DAILY #30 tablet No Action Fluticasone/Salmeterol [Advair 250-50 Diskus] 1 inhalation PO RT-BID Albuterol Nebulized [Ventolin Nebulized] 2.5 mg INHALATION RT-Q4H PRN PRN Reason: Shortness Of Breath Albuterol Inhaler [Ventolin Hfa Inhaler] 2 puff INHALATION RT-Q6H PRN PRN Reason: Shortness Of Breath glipiZIDE [Glucotrol] 5 mg PO TID Omeprazole 40 mg PO BID Multivitamin,Therapeutic [Thera] 1 tab PO DAILY Montelukast [Singulair] 10 mg PO DAILY Estradiol Cream [Estrace Cream 0.01%] 1 gm VAGINAL DIRECTED Ascorbic Acid [Vitamin C] 500 mg PO DAILY valACYclovir HCL [Valtrex] 1,000 mg PO DAILY PRN PRN Reason: OUTBREAK Ezetimibe [Zetia] 10 mg PO DAILY buPROPion HCL [Wellbutrin XL] 300 mg PO DAILY Lisinopril [Prinivil] 5 mg PO DAILY Insulin Glargine [Lantus] 30 unit SQ BID Atorvastatin [Lipitor] 40 mg PO DAILY ALPRAZolam [Xanax] 0.25 mg PO DAILY PRN PRN Reason: Anxiety Discharge Medication List ALPRAZolam [Xanax] 0.25 mg PO DAILY PRN 07/30/18 [History] Albuterol Inhaler [Ventolin Hfa Inhaler] 2 puff INHALATION RT-Q6H PRN 07/30/18 [ History] Albuterol Nebulized [Ventolin Nebulized] 2.5 mg INHALATION RT-Q4H PRN 07/30/18 [ History] Ascorbic Acid [Vitamin C] 500 mg PO DAILY 07/30/18 [History] Atorvastatin [Lipitor] 40 mg PO DAILY 07/30/18 [History] Estradiol Cream [Estrace Cream 0.01%] 1 gm VAGINAL DIRECTED 07/30/18 [History ] Ezetimibe [Zetia] 10 mg PO DAILY 07/30/18 [History] Fluticasone/Salmeterol [Advair 250-50 Diskus] 1 inhalation PO RT-BID 07/30/18 [ History] Insulin Glargine [Lantus] 30 unit SQ BID 07/30/18 [History] Lisinopril [Prinivil] 5 mg PO DAILY 07/30/18 [History] Montelukast [Singulair] 10 mg PO DAILY 07/30/18 [History] Multivitamin,Therapeutic [Thera] 1 tab PO DAILY 07/30/18 [History] Omeprazole 40 mg PO BID 07/30/18 [History] buPROPion HCL [Wellbutrin XL] 300 mg PO DAILY 07/30/18 [History] glipiZIDE [Glucotrol] 5 mg PO TID 07/30/18 [History] valACYclovir HCL [Valtrex] 1,000 mg PO DAILY PRN 07/30/18 [History] predniSONE [Deltasone] 40 mg PO DAILY #30 tablet 08/02/18 [Rx] Follow up Appointment(s)/Referral(s): Baldev Smith DO [Doctor of Osteopathic Medicine] - 3 Days (For early next week. Dr. Smith wants a set of full PFTs. ) Ashwin Galloway DO [Primary Care Provider] - 1 Week Patient Instructions/Handouts: Asthma (DC) Discharge Disposition: HOME SELF-CARE
--- NOTE | 2018-08-02 13:41 | P.PN ---
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 Unfortunately, the patient has developed chronic wedft-pdkcxx-qftx disease in the lung in the form of bronchiolitis obliterans syndrome. She was tried on bronchodilators and inhaled corticosteroids with only minimal benefit. Subsequent to that, she received low and then high-dose prednisone at 1 mg/kg body weight. Despite that, she did not improve and her lung function was declining. Hence, she was admitted to the hospital for high-dose Solu-Medrol. She is getting 250 mg of Solu-Medrol IV push every 6 hours for 12 doses. If this does not work, the patient will need alternative therapy such as rituximab , cirrhosis, plasmapheresis, IVIG, or other immunosuppressives. In addition, should she not respond to any of these therapies, she should be evaluated for lung transplantation. I likely will send her back to [facility] for evaluation should she not respond. I am happy to report today that she is feeling much better. She is much less short of breath. Also exam is much improved. I appreciate the help from our hospitalist colleagues who are managing her blood sugar. On 08/01/2018 patient seen in follow-up on medical surgical floor, she states her breathing is easier, she is less short of breath, wheezing is improving, he has received 8 out of 12 doses of IV steroids, she has 4 more to go. Patient is afebrile, pulse ox is 97%, he has been ambulating within the room, and tolerating activity well. No new chest x-rays today, no new labs. On 08/02/2018 patient seen in follow-up on medical surgical floor. She continues to improve, her breathing continues to get easier, less shortness of breath, less bronchospastic. Patient has received 12 doses of high-dose IV steroids, and responded very favorably to treatments. Vital signs remain stable , room air pulse ox is 96%. Patient's lab work today showed WBC of 16.8, likely steroid-induced, hemoglobin is 12.9, sodium is 140, potassium 3.8, B1 is 33, creatinine 0.86. No acute events overnight, patient has been tolerating ambulation, from pulmonary perspective patient is stable for discharge home today Objective - Vital Signs Vital signs: Vital Signs Temp 97.3 F L 08/02/18 08:06 Pulse 105 H 08/02/18 11:14 Resp 18 08/02/18 08:06 BP 125/68 08/02/18 08:06 Pulse Ox 96 08/02/18 08:06 Intake & Output 08/01/18 08/02/18 08/02/18 18:59 06:59 18:59 Intake Total 720 Balance 720 Weight 106 kg Intake: Oral 720 Other: Voiding Method Toilet Toilet # Voids 1 1 - Exam No acute distress, oriented 3. No justin respiratory distress. No audible wheezing. No use of accessory muscles. HEENT examination is grossly unremarkable. Mucous membranes are moist. No oral lesions. Neck supple. Full range of motion. No adenopathy thyromegaly or neck vein distention. Cardiovascular examination reveals regular rhythm rate. S1-S2 normal. No S3 or S4. No discernible murmur noted. Lungs reveal a few scattered wheezes. No rhonchi or crackles are appreciated. Breath sounds are equal bilaterally. There is prolongation on forced maneuver. Breath sounds are much improved today compared to yesterday's examination. Abdomen soft bowel sounds are heard. No masses or tenderness. Extremities are intact. No cyanosis clubbing or edema. Skin is without rash or lesion. Neurologic examination is brief but nonfocal. - Labs CBC & Chem 7: 08/02/18 09:17 08/02/18 09:17 Labs: Abnormal Lab Results - Last 24 Hours (Table) 08/01/18 08/01/18 08/02/18 Range/Units 17:20 20:31 07:21 WBC (3.8-10.6) k/uL Neutrophils # (1.3-7.7) k/uL Lymphocytes # (1.0-4.8) k/uL Chloride (98-107) mmol/L Carbon Dioxide (22-30) mmol/L BUN (7-17) mg/dL Glucose (74-99) mg/dL POC Glucose (mg/dL) 301 H 256 H 174 H (75-99) mg/dL 11/09/18 11/09/18 11/09/18 Range/Units 09:17 09:17 11:54 WBC 16.8 H (3.8-10.6) k/uL Neutrophils # 15.7 H (1.3-7.7) k/uL Lymphocytes # 0.4 L (1.0-4.8) k/uL Chloride 108 H (98-107) mmol/L Carbon Dioxide 21 L (22-30) mmol/L BUN 33 H (7-17) mg/dL Glucose 237 H (74-99) mg/dL POC Glucose (mg/dL) 214 H (75-99) mg/dL Assessment and Plan Plan: Progressive shortness of breath and decline in lung function, related to chronic pvxvu-vjnezg-tuvu 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 From pulmonary perspective patient is stable for discharge home today, on prednisone 40 mg daily until she sees Dr. Smith early next week in the office for follow-up, continue her maintenance inhaled treatments. I performed a history & physical examination of the patient and discussed their management with my nurse practitioner, Meredith Green. I reviewed the nurse practitioner's note and agree with the documented findings and plan of care. Lung sounds are positive for a few scattered wheezes. The findings and the impression was discussed with the patient. I attest to the documentation by the nurse practitioner. Time with Patient: Less than 30
--- NOTE | 2018-08-07 08:45 | CDI ---
Documentation Clarification Form Date: 08/07/2018 8:30:06 AM From: ZECHARIAH Chirinos; Harriet Emerson Operations Dispatcher Phone: If you have a question about this query, please contact Harriet Emerson Operations Dispatcher at [phone] between 8am and 5pm. Admit Date: 07/30/2018 8:59:00 AM Patient Name: Emani Garcia Visit Number: [id number] Discharge Date: 08/02/2018 ATTENTION: The Clinical Documentation Specialists (CDI) and [facility] Coding Staff appreciate your assistance in clarifying documentation. Please respond to the clarification below the line at the bottom and electronically sign. The CDI & [facility] Coding staff will review the response and follow-up if needed. Please note: Queries are made part of the Legal Health Record. If you have any questions, please contact the author of this message via ITS. Bishop Bach MD The patient has uncontrolled blood sugars in diabetes, as indicated on discharge summary. 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 Clinical Indicators: Receiving high dose IV steroids during admission. Hemoglobin A1C 9.5. Glucose ranges over 300. In order to capture the severity of Illness and necessary documentation specificity, please clarify: DM Type 2 with hyperglycemia DM Type 2 with hypoglycemia Other, please specify Unable to Determine DM Type 2 with hyperglycemia MTDD
== END 2018-08-02 13:52 | disposition home or self-care (01) | DRG 197 ==
LOC: 4MS4W 08:59
PROVIDERS: ADMIT Hospitalist; ATTEND Hospitalist
PROC: 05HD33Z Insertion of Infusion Device into Right Cephalic Vein, Percutaneous Approach (ICD-10-PCS; principal; 2018-08-01 11:25)
PROC: B54MZZA Ultrasonography of Right Upper Extremity Veins, Guidance (ICD-10-PCS; 2018-08-01 11:25)
DX: J84.89 Other specified interstitial pulmonary diseases (principal); D89.811 Chronic graft-versus-host disease; C92.00 Acute myeloblastic leukemia, not having achieved remission; Z94.81 Bone marrow transplant status; E78.5 Hyperlipidemia, unspecified; I10 Essential (primary) hypertension; E11.65 Type 2 diabetes mellitus with hyperglycemia; J45.40 Moderate persistent asthma, uncomplicated; I25.2 Old myocardial infarction; K21.9 Gastro-esophageal reflux disease without esophagitis; R09.02 Hypoxemia; T38.0X5A Adverse effect of glucocorticoids and synthetic analogues, initial encounter; Z79.4 Long term (current) use of insulin; Z79.52 Long term (current) use of systemic steroids; Z82.49 Family history of ischemic heart disease and other diseases of the circulatory system; Z83.3 Family history of diabetes mellitus; Z88.5 Allergy status to narcotic agent; Z88.2 Allergy status to sulfonamides; Z79.51 Long term (current) use of inhaled steroids; Z79.899 Other long term (current) drug therapy; Z90.49 Acquired absence of other specified parts of digestive tract
CPT/HCPCS: 36569; 71046; 76937; 80048; 80053; 83036; 85025; 90732; 94640

== ENCOUNTER → 2019-02-11 | Outpatient (CLI) | payer BC ==
--- NOTE | 2019-02-12 11:18 | MM ---
Reason for exam: screening (asymptomatic). History: Patient has history of other cancer at age 20 and is nulliparous. Family history of breast cancer in maternal grandmother at age 73. Physical Findings: A clinical breast exam by your physician is recommended on an annual basis and results should be correlated with mammographic findings. MG 3D Screening Mammo W/Cad Bilateral CC and MLO view(s) were taken. There are scattered fibroglandular densities. No suspicious abnormality. No significant changes when compared with prior studies. ASSESSMENT: Negative, BI-RAD 1 RECOMMENDATION: Routine screening mammogram of both breasts in 1 year.
== END | disposition home or self-care (01) ==
LOC: RADMAMWWP 07:08
PROVIDERS: ATTEND Family Medicine
DX: Z12.31 Encounter for screening mammogram for malignant neoplasm of breast (principal)
CPT/HCPCS: 77063; 77067

== ENCOUNTER → 2020-08-03 | Outpatient (CLI) | payer BC | END | disposition home or self-care (01) | LOC: LABWHC1 09:21 | PROVIDERS: ATTEND Otolaryngology | DX: R05 Cough (principal) | CPT/HCPCS: U0003; C9803 ==

== ENCOUNTER 2020-08-06 09:53 | Emergency (ER) | payer BC ==
[2020-08-06 10:21] VITALS: BP 135/86; PULSE 108; RESP 20; TEMP 99.2
[2020-08-06] MEDS ORDERED: DOXYCYCLINE 100 MG CAP PO STA (10:50)
--- NOTE | 2020-08-06 11:19 | ED ---
ENT HPI - General Chief complaint: ENT Stated complaint: Face swelling Time Seen by Provider: 08/06/20 10:33 Source: patient Mode of arrival: ambulatory Limitations: no limitations - History of Present Illness Initial comments: 45-year-old male presenting to the emergency department with a chief complaint of nose pain. Patient reports about 2 days ago she developed some redness and pain on the tip of the nose. She reports the redness continues to increase and she does have some discharge that is yellowish/green color. Patient also reports having URI-like symptoms and a fever home. Patient was tested for Covid and is currently pending. Patient states there is quite a bit of pain to palpation on the nose. Patient denies history of MRSA. Patient reports so far she has taken 6 doses of Augmentin with improvement in symptoms. She denies any nausea vomiting diarrhea. As a chest pain since of breath. - Related Data Home Medications Medication Instructions Recorded Confirmed ALPRAZolam [Xanax] 0.25 mg PO DAILY PRN 07/30/18 08/06/20 Albuterol Nebulized [Ventolin 2.5 mg INHALATION RT-Q4H PRN 07/30/18 08/06/20 Nebulized] Ascorbic Acid [Vitamin C] 500 mg PO DAILY 07/30/18 08/06/20 Atorvastatin [Lipitor] 40 mg PO DAILY 07/30/18 08/06/20 Ezetimibe [Zetia] 10 mg PO DAILY 07/30/18 08/06/20 Insulin Glargine [Lantus] 24 unit SQ DAILY 07/30/18 08/06/20 Montelukast [Singulair] 10 mg PO DAILY 07/30/18 08/06/20 Multivitamin,Therapeutic [Thera] 1 tab PO DAILY 07/30/18 08/06/20 Omeprazole 40 mg PO BID 07/30/18 08/06/20 buPROPion HCL [Wellbutrin XL] 300 mg PO DAILY 07/30/18 08/06/20 lisinopriL [Prinivil] 5 mg PO DAILY 07/30/18 08/06/20 valACYclovir HCL [Valtrex] 1,000 mg PO DAILY PRN 07/30/18 08/06/20 Albuterol Sulfate [Ventolin HFA] 1 - 2 puff INHALATION RT-Q4H PRN 08/06/20 08/06/20 Amoxic-Pot Clav 875-125Mg 1 tab PO Q12HR 08/06/20 08/06/20 [Augmentin 875-125] Hydrochlorothiazide 12.5 mg PO DAILY 08/06/20 08/06/20 [hydroCHLOROthiazide] Tiotropium 18 Mcg/Puff [Spiriva] 1 puff INHALATION RT-DAILY 08/06/20 08/06/20 metroNIDAZOLE 1% GEL [Metrogel 1%] 1 applic TOPICAL HS 08/06/20 08/06/20 Previous Rx's Medication Instructions Recorded Doxycycline Monohydrate [Monodox] 100 mg PO Q12HR #20 cap 08/06/20 Allergies Allergy/AdvReac Type Severity Reaction Status Date / Time codeine Allergy Severe Anaphylaxis Verified 08/06/20 11:06 Sulfa (Sulfonamide Allergy Intermediate Rash/Hives Verified 08/06/20 11:06 Antibiotics) Review of Systems ROS Statement: Those systems with pertinent positive or pertinent negative responses have been documented in the HPI. ROS Other: All systems not noted in ROS Statement are negative. 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 Pt has clausterphobia. Past Psychological History: Depression Smoking Status: Never smoker Past Alcohol Use History: Rare Past Drug Use History: None Reported - Past Family History Father Additional Family Medical History / Comment(s): Fathr of a drug overdose. Mother Family Medical History: Coronary Artery Disease (CAD), Diabetes Mellitus Additional Family Medical History / Comment(s): Mother had CABG and aortic aneurysm repair. General Exam Limitations: no limitations General appearance: alert, in no apparent distress Head exam: Present: atraumatic, normocephalic, normal inspection Eye exam: Present: normal appearance, PERRL, EOMI Pupils: Present: normal accommodation ENT exam: Present: normal exam, mucous membranes moist, TM's normal bilaterally, normal external ear exam. Absent: normal oropharynx (Erythema on the nose and tenderness to palpation. There is some yellow crusting noted on the septal aspect of the left nostril. No signs of septal hematoma. No drainage noted at this time.) Neck exam: Present: normal inspection, full ROM. Absent: tenderness Respiratory exam: Present: normal lung sounds bilaterally. Absent: respiratory distress, wheezes, rales Cardiovascular Exam: Present: regular rate, normal rhythm, normal heart sounds GI/Abdominal exam: Present: soft. Absent: distended, tenderness, guarding Extremities exam: Present: normal inspection, full ROM, normal capillary refill. Absent: tenderness Back exam: Present: normal inspection, full ROM. Absent: tenderness, CVA tenderness (R), CVA tenderness (L) Neurological exam: Present: alert, oriented X3 Psychiatric exam: Present: normal affect, normal mood Skin exam: Present: warm, dry, intact, normal color Course Vital Signs 08/06/20 10:19 Temperature 99.2 F Pulse Rate 108 H Respiratory 20 Rate Blood Pressure 135/86 O2 Sat by Pulse 97 Oximetry Procedures - Incision & Drainage Consent Obtained: verbal consent Indication: Abscess Site: other (Nose) Size (cm): 1 I&D Cleaning Method: Alcohol Wipe Sterile Field Used?: No Needle Aspiration Performed?: Yes Irrigation Performed?: No I&D Drainage Obtained: Pus, Blood Culture Obtained?: No Complications: pain, bleeding Patient Tolerated Procedure: well, no complications Medical Decision Making - Medical Decision Making 45-year-old female presenting to the emergency department with a chief complaint of nose pain. On physical examination she does have erythema on the tip of nose along with mild facial swelling. There also appeared to be an area of yellow crusting on the inside left nostril. I used a 20-gauge needle was able to make a small laceration and was able to remove very small amounts of blood in yellow pus. Patient advised to stop taking Augmentin. Patient started on doxycycline because she is ALLERGIC to sulfa. She is advised to follow with ENT. Patient also discharged with Tylenol 3 starter pack. She tolerated this before. Return parameters discussed the patient was understanding agreeable. Devika also examined patient and is agreement with the treatment plan.. Disposition Clinical Impression: Cellulitis of nose Disposition: HOME SELF-CARE Condition: Stable Instructions (If sedation given, give patient instructions): Cellulitis (DC) Additional Instructions: Take prescribed medication as directed. Alternate between Tylenol and Motrin for pain control. Apply warm compresses and move the nose around to remove any excess pus. Prescriptions: Doxycycline Monohydrate [Monodox] 100 mg PO Q12HR #20 cap Is patient prescribed a controlled substance at d/c from ED?: No Referrals: Brandon Davis MD [Primary Care Provider] - 1-2 days Time of Disposition: 11:19
[2020-08-06] MEDS ORDERED: ACET/COD 300 MG/30 MG STARTER PACK 6 TAB BTL PO STA (11:28)
== END 2020-08-06 11:40 | disposition home or self-care (01) ==
LOC: EC 09:53
DX: J34.0 Abscess, furuncle and carbuncle of nose (principal); F32.9 Major depressive disorder, single episode, unspecified; E11.9 Type 2 diabetes mellitus without complications; E78.5 Hyperlipidemia, unspecified; I25.2 Old myocardial infarction; Z85.6 Personal history of leukemia; Z92.21 Personal history of antineoplastic chemotherapy; Z79.4 Long term (current) use of insulin; Z79.899 Other long term (current) drug therapy; Z88.2 Allergy status to sulfonamides; Z88.5 Allergy status to narcotic agent
CPT/HCPCS: 10160; 99283

== ENCOUNTER → 2020-10-29 | Outpatient (CLI) | payer BC ==
--- NOTE | 2020-10-30 05:50 | CT ---
EXAMINATION TYPE: CT soft tissue neck w con DATE OF EXAM: 10/29/2020 COMPARISON: None HISTORY: neck swelling CT DLP: 755 mGycm Automated exposure control for dose reduction was used. CONTRAST: Performed with IV Contrast, patient injected with 100 mL of Isovue 300. Images were obtained from the level of the aortic arch to the top of the orbits with IV contrast. Ascending aorta is 3.8 cm without evidence of dissection. There is no superior mediastinal adenopathy . Thyroid gland is symmetric. There is normal contrast opacification of the carotid arteries and jugu lar veins. The parotid glands are symmetric. Submandibular salivary glands are symmetric. I see no si gnificant adenopathy. Prevertebral soft tissues are intact. There is no evidence of enlarged tonsils or adenoids. The epigl ottis is normal. The tongue appears normal. The subglottic trachea appears normal. There is fairly no rmal aeration of the visualized paranasal sinuses. I see no bony destructive process. Orbital margins are intact. There is no evidence of retro-orbital mass. I see no discrete neck mass. Mandibular ring is intact. Cervical vertebra have normal spacing and alignment. There is no compressi on fracture. IMPRESSION: Negative CT scan of the cervical soft tissues. No evidence of a discrete neck mass.
== END | disposition home or self-care (01) ==
LOC: RADCTMAIN 16:45
PROVIDERS: ATTEND Nurse Practitioner Family
DX: R13.10 Dysphagia, unspecified (principal); R22.1 Localized swelling, mass and lump, neck
CPT/HCPCS: 70491; Q9967

== ENCOUNTER → 2020-10-29 | Outpatient (CLI) | payer BC ==
[2020-10-29 14:13] LABS: African American GFR (CKD) >90 (>60 ml/min/1.73 sqM); Blood Urea Nitrogen 27 mg/dL (7-17); Non-African American GFR(CKD) 89 (>60 ml/min/1.73 sqM)
== END | disposition home or self-care (01) ==
LOC: LABWHC1 13:44
PROVIDERS: ATTEND Nurse Practitioner Family
DX: Z01.812 Encounter for preprocedural laboratory examination (principal); E11.9 Type 2 diabetes mellitus without complications
CPT/HCPCS: 36415; 82565; 84520

== ENCOUNTER → 2021-02-01 | Outpatient (CLI) | payer BC ==
--- NOTE | 2021-02-02 13:50 | MM ---
Reason for exam: screening (asymptomatic). Last mammogram was performed 2 years ago. History: Patient is postmenopausal, has history of other cancer at age 20, and is nulliparous. Family history of breast cancer in maternal grandmother at age 73. Physical Findings: A clinical breast exam by your physician is recommended on an annual basis and results should be correlated with mammographic findings. MG 3D Screening Mammo W/Cad Bilateral CC and MLO view(s) were taken. Prior study comparison: February 11, 2019, bilateral MG 3d screening mammo w/cad. There are scattered fibroglandular densities. No significant changes when compared with prior studies. ASSESSMENT: Benign, BI-RAD 2 RECOMMENDATION: Routine screening mammogram of both breasts in 1 year.
== END | disposition home or self-care (01) ==
LOC: RADMAMWWP 08:32
PROVIDERS: ATTEND Family Medicine
DX: Z12.31 Encounter for screening mammogram for malignant neoplasm of breast (principal); Z78.0 Asymptomatic menopausal state; Z80.3 Family history of malignant neoplasm of breast
CPT/HCPCS: 77063; 77067

== ENCOUNTER 2021-07-25 16:34 | Emergency (ER) | payer BC ==
--- NOTE | 2021-07-25 18:40 | ED ---
General Adult HPI - General Chief complaint: Upper Respiratory Infection Stated complaint: Covid exposure, recent heart surgery Time Seen by Provider: 07/25/21 18:30 Source: patient, RN notes reviewed, old records reviewed Mode of arrival: ambulatory Limitations: no limitations - History of Present Illness Initial comments: This is a well-appearing 46-year-old female, alert and oriented 4, presents to the emergency room with complaints of a Covid exposure. She states that her tested positive last week. Her symptoms developed on Sunday with a cough and congestion and sore throat. She's had a low-grade fever of 99.2. She's also had a couple episodes of diarrhea. She states that she was just discharged from the hospital on Sunday after cardiac stent was placed in her LAD. She does have a history of leukemia, diabetes, myocardial infarction and asthma. -: days(s) (3) Location: head (Congestion and sore throat) Severity scale (1-10): 9 Consistency: constant Improves with: none Worsens with: none Associated Symptoms: cough, fever/chills, other (Sore throat) Treatments Prior to Arrival: other (Tylenol) - Related Data Home Medications Medication Instructions Recorded Confirmed ALPRAZolam [Xanax] 0.25 mg PO DAILY PRN 07/30/18 08/06/20 Albuterol Nebulized [Ventolin 2.5 mg INHALATION RT-Q4H PRN 07/30/18 08/06/20 Nebulized] Ascorbic Acid [Vitamin C] 500 mg PO DAILY 07/30/18 08/06/20 Atorvastatin [Lipitor] 40 mg PO DAILY 07/30/18 08/06/20 Ezetimibe [Zetia] 10 mg PO DAILY 07/30/18 08/06/20 Insulin Glargine [Lantus] 24 unit SQ DAILY 07/30/18 08/06/20 Montelukast [Singulair] 10 mg PO DAILY 07/30/18 08/06/20 Multivitamin,Therapeutic [Thera] 1 tab PO DAILY 07/30/18 08/06/20 Omeprazole 40 mg PO BID 07/30/18 08/06/20 buPROPion HCL [Wellbutrin XL] 300 mg PO DAILY 07/30/18 08/06/20 lisinopriL [Prinivil] 5 mg PO DAILY 07/30/18 08/06/20 valACYclovir HCL [Valtrex] 1,000 mg PO DAILY PRN 07/30/18 08/06/20 Albuterol Sulfate [Ventolin HFA] 1 - 2 puff INHALATION RT-Q4H PRN 08/06/20 08/06/20 Amoxic-Pot Clav 875-125Mg 1 tab PO Q12HR 08/06/20 08/06/20 [Augmentin 875-125] Hydrochlorothiazide 12.5 mg PO DAILY 08/06/20 08/06/20 [hydroCHLOROthiazide] Tiotropium 18 Mcg/Puff [Spiriva] 1 puff INHALATION RT-DAILY 08/06/20 08/06/20 metroNIDAZOLE 1% GEL [Metrogel 1%] 1 applic TOPICAL HS 08/06/20 08/06/20 Previous Rx's Medication Instructions Recorded Doxycycline Monohydrate [Monodox] 100 mg PO Q12HR #20 cap 08/06/20 Allergies Allergy/AdvReac Type Severity Reaction Status Date / Time codeine Allergy Severe Anaphylaxis Verified 07/25/21 17:11 Sulfa (Sulfonamide Allergy Intermediate Rash/Hives Verified 07/25/21 17:11 Antibiotics) Review of Systems ROS Statement: Those systems with pertinent positive or pertinent negative responses have been documented in the HPI. ROS Other: All systems not noted in ROS Statement are negative. 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 Pt has clausterphobia. Past Psychological History: Depression Smoking Status: Never smoker Past Alcohol Use History: Rare Past Drug Use History: None Reported - Past Family History Father Additional Family Medical History / Comment(s): Fathr of a drug overdose. Mother Family Medical History: Coronary Artery Disease (CAD), Diabetes Mellitus Additional Family Medical History / Comment(s): Mother had CABG and aortic aneurysm repair. General Exam Limitations: no limitations General appearance: alert, in no apparent distress Head exam: Present: atraumatic, normocephalic, normal inspection Eye exam: Present: normal appearance, EOMI ENT exam: Present: normal exam, normal oropharynx, mucous membranes moist Neck exam: Present: normal inspection, full ROM. Absent: tenderness, meningismus, lymphadenopathy, thyromegaly Respiratory exam: Present: wheezes (Expiratory bilateral). Absent: rales, rhonchi, chest wall tenderness, accessory muscle use, decreased breath sounds Cardiovascular Exam: Present: regular rate, normal rhythm, normal heart sounds. Absent: systolic murmur, diastolic murmur, rubs, gallop, clicks GI/Abdominal exam: Present: soft, normal bowel sounds. Absent: distended, tenderness, guarding, rebound, rigid Extremities exam: Present: normal inspection, full ROM, normal capillary refill. Absent: tenderness, pedal edema, joint swelling, calf tenderness Back exam: Absent: tenderness, CVA tenderness (R), CVA tenderness (L) Neurological exam: Present: alert, oriented X3, CN II-XII intact Psychiatric exam: Present: normal affect, normal mood Skin exam: Present: warm, dry, intact, normal color. Absent: rash Course Vital Signs 07/25/21 07/25/21 07/25/21 17:08 19:24 19:48 Temperature 98.2 F 97.9 F 98.0 F Pulse Rate 88 78 76 Respiratory 18 20 20 Rate Blood Pressure 117/73 108/79 102/72 O2 Sat by Pulse 98 96 96 Oximetry 07/25/21 07/25/21 21:44 21:52 Temperature 98.1 F 98.1 F Pulse Rate 72 87 Respiratory 20 16 Rate Blood Pressure 89/68 115/81 O2 Sat by Pulse 97 98 Oximetry Medical Decision Making - Medical Decision Making 46-year-old female presents to the emergency room with positive covid exposure by her . States that she developed symptoms on Sunday with congestion and sore throat and low-grade fever. Generalized body aches. She denies any chest pain or shortness of breath. She has wheezing bilaterally and she was offered a breathing treatment declined at this time. Oxygen saturation is 98% on room air. She states that she was discharged from the hospital on Sunday after a stent placed in her LAD. Patient does have history also of leukemia, asthma and [place]. She tolerated the monoclonal antibody well. She'll be discharged home to follow up with her primary care doctor. Case was discussed with Dr. Levi. - Lab Data Lab Results 07/25/21 Range/Units 17:13 Coronavirus (PCR) Detected A (Not Detectd) Disposition Clinical Impression: COVID-19 Disposition: HOME SELF-CARE Condition: Good Instructions (If sedation given, give patient instructions): Coronavirus Disease 2019 (COVID-19) Additional Instructions: Take Tylenol and or Motrin as needed for pain or fevers. You can take vitamin C, vitamin D and zinc to improve immune health. Follow-up with the primary care doctor next week. Return to the emergency room with any new or worsening symptoms including chest pain or shortness of breath. Is patient prescribed a controlled substance at d/c from ED?: No Referrals: Brandon Davis MD [Primary Care Provider] - 1-2 days Time of Disposition: 20:28
[2021-07-25] MEDS ORDERED: CASIRIVIMAB (REGN10933) (EUA) 600 MG, IMDEVIMAB (REGN10987) (EUA) 600 MG in SODIUM CHLO... IVPB ONE (19:30)
[2021-07-25] MEDS ORDERED: SODIUM CHLORIDE 0.9% 50 ML IVPB ONE (19:30)
[2021-07-25 21:46] VITALS: TEMP 98.1
[2021-07-25 21:53] VITALS: BP 115/81; PULSE 87; RESP 16
== END 2021-07-25 21:52 | disposition home or self-care (01) ==
LOC: EC 16:34
DX: U07.1 COVID-19 (principal); E11.9 Type 2 diabetes mellitus without complications; I25.2 Old myocardial infarction; J45.909 Unspecified asthma, uncomplicated; E78.5 Hyperlipidemia, unspecified; Z88.5 Allergy status to narcotic agent; Z88.2 Allergy status to sulfonamides; Z79.899 Other long term (current) drug therapy; Z79.4 Long term (current) use of insulin; Z79.51 Long term (current) use of inhaled steroids
CPT/HCPCS: 87635; 99283; 96365; Q0243

== ENCOUNTER 2021-09-20 11:21 | Inpatient (IN) | payer BC ==
[2021-09-20] MEDS ORDERED: SODIUM CHLORIDE 0.9% 1,000 ML IV STA (11:46)
[2021-09-20] MEDS ORDERED: ACETAMINOPHEN TAB 500 MG TAB PO STA (11:47)
--- NOTE | 2021-09-20 11:51 | ED ---
General Adult HPI - General Chief complaint: Shortness of Breath Stated complaint: fever, hurts to breath Time Seen by Provider: 09/20/21 11:42 Source: patient, RN notes reviewed Mode of arrival: ambulatory Limitations: no limitations - History of Present Illness Initial comments: Patient is a pleasant 46-year-old female sitting to the emergency Department with cough and dyspnea. Patient does have history of COPD per onset of symptoms was yesterday. Patient has discomfort left mid upper back. Discomfort increases with deep breaths and movement. Patient also feels short of breath. Patient did have fever since yesterday. Last Tylenol was around 3 AM. Patient did have COVID-19 infection around 1 month ago. - Related Data Home Medications Medication Instructions Recorded Confirmed Ezetimibe [Zetia] 10 mg PO DAILY 07/30/18 09/20/21 Montelukast [Singulair] 10 mg PO HS 07/30/18 09/20/21 Omeprazole 40 mg PO BID 07/30/18 09/20/21 buPROPion HCL [Wellbutrin XL] 300 mg PO DAILY 07/30/18 09/20/21 lisinopriL [Prinivil] 5 mg PO HS 07/30/18 09/20/21 Hydrochlorothiazide 12.5 mg PO DAILY 08/06/20 09/20/21 [hydroCHLOROthiazide] Aspirin EC [Ecotrin Low Dose] 81 mg PO HS 09/20/21 09/20/21 Empagliflozin [Jardiance] 25 mg PO DAILY 09/20/21 09/20/21 Fexofenadine HCl [Tri Allergy] 180 mg PO DAILY 09/20/21 09/20/21 Nitroglycerin Sl Tabs [Nitrostat] 0.4 mg PO Q5M PRN 09/20/21 09/20/21 Prasugrel [Effient] 10 mg PO DAILY 09/20/21 09/20/21 Rosuvastatin Calcium 20 mg PO HS 09/20/21 09/20/21 Allergies Allergy/AdvReac Type Severity Reaction Status Date / Time codeine Allergy Severe Anaphylaxis Verified 09/20/21 12:24 Sulfa (Sulfonamide Allergy Intermediate Rash/Hives Verified 09/20/21 12:24 Antibiotics) Review of Systems ROS Statement: Those systems with pertinent positive or pertinent negative responses have been documented in the HPI. ROS Other: All systems not noted in ROS Statement are negative. 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, [place] r/t chemo agent causing hypokalemia and hypomagnesemia, 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 Pt has clausterphobia. Past Psychological History: Depression Smoking Status: Never smoker Past Alcohol Use History: Rare Past Drug Use History: None Reported - Past Family History Father Additional Family Medical History / Comment(s): Sari of a drug overdose. Mother Family Medical History: Coronary Artery Disease (CAD), Diabetes Mellitus Additional Family Medical History / Comment(s): Mother had CABG and aortic aneurysm repair. General Exam Limitations: no limitations General appearance: alert, in no apparent distress Head exam: Present: normocephalic Eye exam: Present: normal appearance Neck exam: Present: normal inspection Respiratory exam: Present: wheezes (Minimal expiratory wheeze). Absent: chest wall tenderness Cardiovascular Exam: Present: tachycardia Expanded Peripheral pulses: 2+: Radial (R), Radial (L), Posterior Tibialis (R), Posterior Tibialis (L) GI/Abdominal exam: Present: soft. Absent: tenderness Extremities exam: Present: normal inspection. Absent: pedal edema, calf tenderness Neurological exam: Present: alert Psychiatric exam: Present: normal affect, normal mood Skin exam: Present: normal color Course Vital Signs 09/20/21 09/20/2109/20/21 11:25 12:56 13:07 Temperature 98.9 F Pulse Rate 122 H 104 H Respiratory 18 20 20 Rate Blood Pressure 134/79 105/69 O2 Sat by Pulse 93 L 98 Oximetry 09/20/21 14:14 Temperature Pulse Rate 107 H Respiratory 20 Rate Blood Pressure 104/70 O2 Sat by Pulse 98 Oximetry - Reevaluation(s) Reevaluation #1: 09/20/21 14:28 There is concern for sepsis diagnosed at 1420. Blood culture and lactic acid and IV antibiotics will been ordered. EKG Findings - EKG Comments: EKG Findings:: Sinus tachycardia 105. [place] 142. QRS 82. QT 348. QTC 459. Low QRS voltage. No acute ST change. Medical Decision Making - Medical Decision Making Patient reevaluated and updated. Case discussed with Dr. Bronson, who will admit for Dr. Davis. - Lab Data Result diagrams: 09/20/21 12:04 09/20/21 12:04 Lab Results 09/20/21 09/20/21 09/20/21 Range/Units 12:04 12:04 12:04 WBC 25.6 H (3.8-10.6) k/uL RBC 4.23 (3.80-5.40) m/uL Hgb 12.5 (11.4-16.0) gm/dL Hct 39.4 (34.0-46.0) % MCV 93.0 (80.0-100.0) fL MCH 29.5 (25.0-35.0) pg MCHC 31.7 (31.0-37.0) g/dL RDW 13.1 (11.5-15.5) % Plt Count 217 (150-450) k/uL MPV 7.4 Neutrophils % 91 % Lymphocytes % 3 % Monocytes % 4 % Eosinophils % 1 % Basophils % 0 % Neutrophils # 23.3 H (1.3-7.7) k/uL Lymphocytes # 0.7 L (1.0-4.8) k/uL Monocytes # 1.1 H (0-1.0) k/uL Eosinophils # 0.2 (0-0.7) k/uL Basophils # 0.0 (0-0.2) k/uL PT 10.4 (9.0-12.0) sec INR 1.0 (<1.2) APTT 21.7 L (22.0-30.0) sec Sodium 134 L (137-145) mmol/L Potassium 3.8 (3.5-5.1) mmol/L Chloride 100 (98-107) mmol/L Carbon Dioxide 17 L (22-30) mmol/L Anion Gap 17 mmol/L BUN 22 H (7-17) mg/dL Creatinine 1.04 (0.52-1.04) mg/dL Est GFR (CKD-EPI)AfAm 75 (>60 ml/min/1.73 sqM) Est GFR (CKD-EPI)NonAf 65 (>60 ml/min/1.73 sqM) Glucose 218 H (74-99) mg/dL Plasma Lactic Acid Jp (0.7-2.0) mmol/L Calcium 8.9 (8.4-10.2) mg/dL Total Bilirubin 0.8 (0.2-1.3) mg/dL AST 33 (14-36) U/L ALT 32 (4-34) U/L Alkaline Phosphatase 96 (38-126) U/L Troponin I (0.000-0.034) ng/mL Total Protein 6.9 (6.3-8.2) g/dL Albumin 3.9 (3.5-5.0) g/dL Coronavirus (PCR) (Not Detectd) Influenza Type A RNA (Not Detectd) Influenza Type B (PCR) (Not Detectd) 09/20/21 09/20/21 09/20/21 Range/Units 12:04 12:04 12:04 WBC (3.8-10.6) k/uL RBC (3.80-5.40) m/uL Hgb (11.4-16.0) gm/dL Hct (34.0-46.0) % MCV (80.0-100.0) fL MCH (25.0-35.0) pg MCHC (31.0-37.0) g/dL RDW (11.5-15.5) % Plt Count (150-450) k/uL MPV Neutrophils % % Lymphocytes % % Monocytes % % Eosinophils % % Basophils % % Neutrophils # (1.3-7.7) k/uL Lymphocytes # (1.0-4.8) k/uL Monocytes # (0-1.0) k/uL Eosinophils # (0-0.7) k/uL Basophils # (0-0.2) k/uL PT (9.0-12.0) sec INR (<1.2) APTT (22.0-30.0) sec Sodium (137-145) mmol/L Potassium (3.5-5.1) mmol/L Chloride (98-107) mmol/L Carbon Dioxide (22-30) mmol/L Anion Gap mmol/L BUN (7-17) mg/dL Creatinine (0.52-1.04) mg/dL Est GFR (CKD-EPI)AfAm (>60 ml/min/1.73 sqM) Est GFR (CKD-EPI)NonAf (>60 ml/min/1.73 sqM) Glucose (74-99) mg/dL Plasma Lactic Acid Jp 1.8 (0.7-2.0) mmol/L Calcium (8.4-10.2) mg/dL Total Bilirubin (0.2-1.3) mg/dL AST (14-36) U/L ALT (4-34) U/L Alkaline Phosphatase (38-126) U/L Troponin I <0.012 (0.000-0.034) ng/mL Total Protein (6.3-8.2) g/dL Albumin (3.5-5.0) g/dL Coronavirus (PCR) (Not Detectd) Influenza Type A RNA Not Detected (Not Detectd) Influenza Type B (PCR) Not Detected (Not Detectd) 09/20/21 Range/Units 12:04 WBC (3.8-10.6) k/uL RBC (3.80-5.40) m/uL Hgb (11.4-16.0) gm/dL Hct (34.0-46.0) % MCV (80.0-100.0) fL MCH (25.0-35.0) pg MCHC (31.0-37.0) g/dL RDW (11.5-15.5) % Plt Count (150-450) k/uL MPV Neutrophils % % Lymphocytes % % Monocytes % % Eosinophils % % Basophils % % Neutrophils # (1.3-7.7) k/uL Lymphocytes # (1.0-4.8) k/uL Monocytes # (0-1.0) k/uL Eosinophils # (0-0.7) k/uL Basophils # (0-0.2) k/uL PT (9.0-12.0) sec INR (<1.2) APTT (22.0-30.0) sec Sodium (137-145) mmol/L Potassium (3.5-5.1) mmol/L Chloride (98-107) mmol/L Carbon Dioxide (22-30) mmol/L Anion Gap mmol/L BUN (7-17) mg/dL Creatinine (0.52-1.04) mg/dL Est GFR (CKD-EPI)AfAm (>60 ml/min/1.73 sqM) Est GFR (CKD-EPI)NonAf (>60 ml/min/1.73 sqM) Glucose (74-99) mg/dL Plasma Lactic Acid Jp (0.7-2.0) mmol/L Calcium (8.4-10.2) mg/dL Total Bilirubin (0.2-1.3) mg/dL AST (14-36) U/L ALT (4-34) U/L Alkaline Phosphatase (38-126) U/L Troponin I (0.000-0.034) ng/mL Total Protein (6.3-8.2) g/dL Albumin (3.5-5.0) g/dL Coronavirus (PCR) Not Detected (Not Detectd) Influenza Type A RNA (Not Detectd) Influenza Type B (PCR) (Not Detectd) - Radiology Data Radiology results: image reviewed (Computed tomography scan negative for pulmona ry embolism. There is moderate left lower lobe infiltrate) Critical Care Time Critical Care Time: Yes Total Critical Care Time: 33 Disposition Clinical Impression: Pneumonia, Sepsis Disposition: ADMITTED IP TO THIS HOSP Is patient prescribed a controlled substance at d/c from ED?: No Referrals: Brandon Davis MD [Primary Care Provider] - 1-2 days Decision Time: 14:28
[2021-09-20 13:03] LABS: Basophils % (A) 0 %; Eosinophils # (A) 0.2 k/uL (0-0.7); Eosinophils % (A) 1 %; HCT 39.4 % (34.0-46.0); HGB 12.5 gm/dL (11.4-16.0); Lymphocytes # (A) 0.7 k/uL (1.0-4.8); Lymphocytes % (A) 3 %; MCH 29.5 pg (25.0-35.0); MCHC 31.7 g/dL (31.0-37.0); Mean Platelet Volume 7.4; Monocytes # (A) 1.1 k/uL (0-1.0); Monocytes % (A) 4 %; Neutrophils # (A) 23.3 k/uL (1.3-7.7); Neutrophils % (A) 91 %; Platelet Count 217 k/uL (150-450); RBC 4.23 m/uL (3.80-5.40); RDW 13.1 % (11.5-15.5); WBC 25.6 k/uL (3.8-10.6)
[2021-09-20 13:20] LABS: Albumin 3.9 g/dL (3.5-5.0); Calcium 8.9 mg/dL (8.4-10.2); Potassium 3.8 mmol/L (3.5-5.1); Total Bilirubin 0.8 mg/dL (0.2-1.3); Total Protein 6.9 g/dL (6.3-8.2)
[2021-09-20 13:33] LABS: Partial Thromboplastin Time 21.7 sec (22.0-30.0); Prothrombin Time 10.4 sec (9.0-12.0)
--- NOTE | 2021-09-20 14:09 | CT ---
EXAMINATION TYPE: CT angio chest DATE OF EXAM: 09/20/2021 COMPARISON: None HISTORY: dyspnea, cough CT DLP: 406.3 mGycm CONTRAST: CT chest with contrast and 3D reconstruction with MIP imaging is performed with IV Contrast, patient injected with 100 mL of Isovue 370. Contrast-enhanced CT of the chest was performed through the course of the pulmonary arteries with armand g and mediastinal window settings submitted. 3D reconstruction with MIP imaging was also performed. PULMONARY ARTERIES: The pulmonary arteries and their major tributaries are patent. I do not see sandip dence for sizable filling defect to suggest pulmonary embolic process. LUNGS: Moderate sized area of the left lower lobe airspace consolidation. No evidence for atelectasis . No pulmonary nodule or mass is detected. No pleural effusion. MEDIASTINUM: Thoracic aorta is of normal caliber,. Moderate fixed hiatal hernia seen. The heart is n ot enlarged. No evidence for mediastinal mass. No mediastinal lymph nodes greater than 1cm. HILAR STRUCTURES: No evidence for mass. No hilar lymph nodes greater than 1 cm. UPPER ABDOMEN: No significant abnormality is seen. IMPRESSION: 1. No evidence for Pulmonary embolism at this time. 2.Moderate sized area of the left lower lobe airspace consolidation.
[2021-09-20] MEDS ORDERED: AZITHROMYCIN 500 MG in SODIUM CHLORIDE 0.9% 250 ML IVPB STA (14:28)
[2021-09-20] MEDS ORDERED: PNEUMONIA PROTOCOL UTILIZED 1 EACH MISC PO PRN (14:28)
[2021-09-20] MEDS ORDERED: VANCOMYCIN IV PER PHARMACY 1 EACH MISC MISCELLANE PRN (16:41)
--- NOTE | 2021-09-20 16:42 | P.CNPUL ---
History of Present Illness Consult date: 09/20/21 Requesting physician: Bhavya Tang Reason for consult: pneumonia Chief complaint: Fever, cough and shortness of breath History of present illness: This is a 46-year-old female, known history of allogenic bone marrow transplant back in 1998. 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 Her bone marrow transplant was performed at the [facility] and she has been following up with Dr. patton for what seems to be a chronic [id number] disease in the form of bronchiolitis obliterans syndrome. Patient has been treated with multiple bronchodilators, and surprisingly she has been doing quite well. She was even tried on prednisone relatively high dose for her bronchio litis obliterans syndrome patient initially improved but, later became worse. Patient was treated at one point in the hospital with high dose IV Solu-Medrol, and at one point Dr. patton entertained the possibility whether the patient is a candidate for plasmapheresis, IVIG G, rituxin, cyclosporine, Prograf, CellCept, and even raise the possibility of lung transplantation. Apparently the patient responded at the time to steroids, and she has not been on any oral systemic steroids since then. Patient was treated mostly with inhalers in the form of albuterol, Spiriva, Singulair, and has done fairly well. Supposedly her FEV1 is in the range of 45%. Her other medical problems include insulin-dependent diabetes mellitus type 2. Patient came into the ER today with 1 day history of cough, and shortness of breath. Patient was also complaining of discomfort in the left mid upper back. Pain was pleuritic in nature. Hence a CT angiogram of the chest was done, there was no evidence of pulmonary embolism but there was evidence of moderate size area of left lower lobe airspace consolidation consistent with pneumonia with air bronchogram noted. Patient was also noted to have leukocytosis with WBC count of 25.6, electrolytes were normal and renal profile was normal patient had negative testing for COVID-19 infection and negative testing for influenza. However looking back on 07/25/21, patient did have positive PCR for COVID-19 but she has fully recovered since then. Review of Systems Constitutional: Fever, no weight loss, minimal weakness. 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 Pt has clausterphobia. Date of Last Stent Placement:: July 18, 2021 Past Psychological History: Depression Additional Psychological History / Comment(s): Pt resides with her spouse. She is independent. She works as a medical transcriber. She has clausterphobia Smoking Status: Never smoker Past Alcohol Use History: Rare Past Drug Use History: None Reported - Past Family History Father Additional Family Medical History / Comment(s): Ineshr of a drug overdose. Mother Family Medical History: Coronary Artery Disease (CAD), Diabetes Mellitus Additional Family Medical History / Comment(s): Mother had CABG and aortic aneurysm repair. Medications and Allergies Home Medications Medication Instructions Recorded Confirmed Type Ezetimibe [Zetia] 10 mg PO DAILY 07/30/18 09/20/21 History Montelukast [Singulair] 10 mg PO HS 07/30/18 09/20/21 History Omeprazole 40 mg PO BID 07/30/18 09/20/21 History buPROPion HCL [Wellbutrin XL] 300 mg PO DAILY 07/30/18 09/20/21 History lisinopriL [Prinivil] 5 mg PO HS 07/30/18 09/20/21 History Hydrochlorothiazide 12.5 mg PO DAILY 08/06/20 09/20/21 History [hydroCHLOROthiazide] Aspirin EC [Ecotrin Low Dose] 81 mg PO HS 09/20/21 09/20/21 History Empagliflozin [Jardiance] 25 mg PO DAILY 09/20/21 09/20/21 History Fexofenadine HCl [Tri Allergy] 180 mg PO DAILY 09/20/21 09/20/21 History Nitroglycerin Sl Tabs [Nitrostat] 0.4 mg PO Q5M PRN 09/20/21 09/20/21 History Prasugrel [Effient] 10 mg PO DAILY 09/20/21 09/20/21 History Rosuvastatin Calcium 20 mg PO HS 09/20/21 09/20/21 History Allergies Allergy/AdvReac Type Severity Reaction Status Date / Time codeine Allergy Severe Anaphylaxis Verified 09/20/21 12:24 Sulfa (Sulfonamide Allergy Intermediate Rash/Hives Verified 09/20/21 12:24 Antibiotics) Physical Exam Vitals: Vital Signs Temp Pulse Pulse Resp BP BP Pulse Ox 09/20/21 16:02 16 09/20/21 15:45 98.7 F 101 H 16 110/76 93 L 09/20/21 15:37 98.9 F 97 18 91/65 93 L 09/20/21 15:23 97 18 91/65 93 L 09/20/21 14:14 107 H 20 104/70 98 09/20/21 13:07 104 H 20 105/69 98 09/20/21 12:56 20 09/20/21 11:25 98.9 F 122 H 18 134/79 93 L Intake and Output 09/20/21 09/20/21 09/20/21 06:59 14:59 22:59 Intake Total 300 Balance 300 Intake: IV 300 Azithromycin 500 mg In 250 Sodium Chloride 0.9% 250 ml @ 250 mls/hr IVPB ONCE STA Rx#:[id number] cefTRIAXone 2 gm In 50 Sodium Chloride 0.9% 50 ml @ 100 mls/hr IVPB ONCE STA Rx#:[id number] Other: Weight 87.09 kg 87.09 kg Physical Exam revealed 46-year-old female in no distress on room air. Head: Atraumatic, normocephalic. HEENT:[Neck is supple.] [No neck masses.] [No thyromegaly.] [No JVD.] Chest: [Symmetrical chest expansion, bronchial breath sounds at the left base no rhonchi no wheezes Cardiac Exam: [Normal S1 and S2, no S3 gallop, no murmur.] Abdomen: [Soft, nontender, no megaly, no rebound, no guarding, normal bowel sounds.] Extremities: [No clubbing, no edema, no cyanosis.] Neurological Exam: [No focal neurologic deficit.] Alert and oriented 3. Skin: No rashes. Psychiatric: Normal mood affect and normal mental status examination. Results - Laboratory Findings CBC and BMP: 09/20/21 12:04 09/20/21 12:04 PT/INR, D-dimer PT 10.4 sec (9.0-12.0) 09/20/21 12:04 INR 1.0 (<1.2) 09/20/21 12:04 Abnormal lab findings: Abnormal Labs 09/20/21 09/20/21 09/20/21 12:04 12:04 12:04 WBC 25.6 H Neutrophils # 23.3 H Lymphocytes # 0.7 L Monocytes # 1.1 H APTT 21.7 L Sodium 134 L Carbon Dioxide 17 L BUN 22 H Glucose 218 H - Diagnostic Findings CT scan - chest: image reviewed (As noted in HPI, there is a large area of consolidation with air bronchogram involving the left lower lobe posteriorly.) Assessment and Plan Assessment: Impression: Acute community-acquired left lower lobe pneumonia 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 History of asthma Benign essential hypertension Dyslipidemia History of GERD Recommendation: Would recommend broad-spectrum antibiotics coverage on this patient. We'll start patient on treatment in the form of cefepime and vancomycin. Continue bronchodilators. Check sputum cultures and will check Legionella antigen Blood cultures to be checked. Consider bronchoscopy and lavage if the patient's condition does not improve much in the next couple of days. We will continue to closely follow. Time with Patient: Greater than 30
[2021-09-20 17:36] LABS: Glucose,Whole Blood 94 mg/dL (75-99)
[2021-09-20] MEDS: PANTOPRAZOLE 40 MG TABLET PO SCH (18:08)
--- NOTE | 2021-09-20 18:21 | HP ---
HISTORY AND PHYSICAL DATE OF SERVICE: 09/20/2021. CHIEF COMPLAINT: Shortness of breath and back pain and cough. HISTORY OF PRESENT ILLNESS: This 46-year-old woman with a past medical history of multiple medical problems, including diabetes mellitus, hyperlipidemia, history of myocardial infarction, history of chemotherapy with hypokalemia and hypomagnesemia, history of CAD, stent, being followed by Dr. Davis in the outpatient setting, apparently was having significant shortness of breath. The patient also was having some cough. The patient came to [facility] and was admitted for further evaluation and treatment. Patient apparently had COVID about a month ago. The patient apparently had monoclonal antibodies. There is no history of any fever, rigor or chills at this time. PAST MEDICAL HISTORY: History of diabetes mellitus, type 2, hyperlipidemia, history of myocardial infarction. HOME MEDICATIONS: Fexofenadine, aspirin, rosuvastatin, omeprazole, montelukast, nitro, lisinopril, Jardiance, bupropion, hydrochlorothiazide and Zetia. Doses are reviewed. ALLERGIES: CODEINE AND SULFA. FAMILY HISTORY: History of CAD, diabetes mellitus. Father of drug overdose. SOCIAL HISTORY: No history of smoking. Occasional alcohol intake. REVIEW OF SYSTEMS: ENT: No diminished hearing. No diminished vision. CARDIOVASCULAR SYSTEM: As mentioned earlier. RESPIRATORY SYSTEM: As mentioned earlier. GI: No nausea, vomiting, diarrhea. : No dysuria. NERVOUS SYSTEM: No numbness, weakness. ALLERGY/IMMUNOLOGY: No asthma or hayfever. MUSCULOSKELETAL: As mentioned earlier. HEMATOLOGY/ONCOLOGY: As mentioned earlier. ENDOCRINE: As mentioned earlier. CONSTITUTIONAL: As mentioned earlier. DERMATOLOGY: As mentioned earlier. PSYCHIATRY: As mentioned earlier. PHYSICAL EXAMINATION: Patient is alert and oriented x3. Pulse 101, blood pressure 110/76, respirations 16, temperature 98.7, pulse ox 93% on room air. HEENT: Conjunctivae normal. Oral mucosa moist. NECK: No jugular venous distention. No carotid bruit. No lymph node enlargement. CARDIOVASCULAR: S1, S2 muffled. RESPIRATION: Breath sounds diminished at the bases. A few scattered rhonchi. ABDOMEN: Soft, nontender. LEGS: No edema. No swelling. NERVOUS SYSTEM: Higher functions as mentioned earlier. Moves all 4 limbs. No focal motor or sensory deficit. LYMPHATICS: No lymph node palpable in neck, axillae or groin. SKIN: No ulcer, rash, bleeding. JOINTS: No active deforming arthropathy. LAB STUDIES: WBC 25.6 and APTT is 21.2. Sodium 134, glucose 218. Chest x-ray noted. CT scan noted. ASSESSMENT: 1. Acute left lower lobe pneumonia, possibly Gram-negative with possible sepsis, present on admission. 2. History of recent COVID-19 infection. 3. Diabetes mellitus, type 2, with hyperglycemia. 4. Decreased CO2. 5. Rule out diabetic ketoacidosis. 6. Hyponatremia. 7. Elevated white count. 8. Diabetes mellitus, type 2. 9. Hyperlipidemia. 10.History of myocardial infarction. 11.History of acute myelocytic leukemia with chemo. 12.History of hypokalemia and hypomagnesemia. 13.History of chronic qpsny-fckywy-mjrj disease. 14.History of BOOP. 15.History of adenoidectomy. 16.History of cholecystectomy. 17.History of coronary artery disease, stent. 18.Immunosuppressed. 19.1999 bone marrow transplant. 20.History of depression. RECOMMENDATIONS AND DISCUSSION: In this 46-year-old woman who presented with multiple complex medical issues, we will monitor the patient closely, continue the current medications, continue symptomatic treatment. Otherwise at this time, this patient is at high risk for multiple infections, especially in view of the recent COVID-19 infection. I would initiate broad-spectrum IV antibiotics, obtain the cultures. Mycoplasma Legionella antibody titers. Will initiate Rocephin and Zithromax. Obtain pulmonary as well as infectious disease evaluations. Resume the home medications, bronchodilators. Prognosis is guarded because of multiple complex medical issues. Further recommendations to follow. Will also obtain sputum and blood fungal cultures. See orders for further details. DVT prophylaxis. A copy of this dictation is being forwarded to Dr. Davis, who is the primary physician. MMODL / IJN: [id number] / [facility] CENTERLeland
[2021-09-20] MEDS: VANCOMYCIN 1,500 MG in SODIUM CHLORIDE 0.9% 250 ML IVPB SCH (18:22)
[2021-09-20] MEDS ORDERED: ACETAMINOPHEN TAB 325 MG TAB PO PRN (20:05)
[2021-09-20] MEDS: lisinopriL 5 MG TAB PO SCH (20:17)
[2021-09-20] MEDS: ASPIRIN 81 MG PO SCH (20:17)
[2021-09-20] MEDS: ATORVASTATIN 40 MG TAB PO SCH (20:17)
[2021-09-20] MEDS: MONTELUKAST 10 MG TAB PO SCH (20:17)
[2021-09-20 22:00] LABS: Glucose,Whole Blood 200 mg/dL (75-99)
[2021-09-20] MEDS: CEFEPIME 1 GM in SODIUM CHLORIDE 0.9% 50 ML IVPB SCH (23:45)
[2021-09-20] MEDS: HYDROcodone/APAP 5-325MG 1 EACH TAB PO PRN (23:57)
[2021-09-21] MEDS: SYMBICORT 160-4.5 MCG INHALER INHALATION SCH ×3 (00:51→19:51)
[2021-09-21] MEDS: IPRATROPIUM-ALBUTEROL 3 ML NEB INHALATION SCH ×5 (00:52→19:51)
[2021-09-21 05:56] LABS: Mycoplasma IgG Antibody (EIA) 0.36 INDEX (<=0.90); Mycoplasma IgM Antibody 0.2 INDEX (<=0.90)
[2021-09-21 07:12] LABS: Glucose,Whole Blood 110 mg/dL (75-99)
[2021-09-21] MEDS: PANTOPRAZOLE 40 MG TABLET PO SCH ×2 (07:30→16:18)
[2021-09-21] MEDS: HYDROcodone/APAP 5-325MG 1 EACH TAB PO PRN ×3 (07:30→22:50)
--- NOTE | 2021-09-21 08:07 | XR ---
EXAMINATION TYPE: XR chest 1V portable DATE OF EXAM: 09/21/2021 COMPARISON: 07/30/2018 HISTORY: Chest pain TECHNIQUE: Single frontal view of the chest is obtained. FINDINGS: There is no focal air space opacity, pleural effusion, or pneumothorax seen. The cardiac silhouette size is within normal limits. The osseous structures are intact. IMPRESSION: 1. No acute process.
[2021-09-21] MEDS ORDERED: hydroCHLOROthiazide 12.5 MG CAP PO SCH (09:00)
[2021-09-21] MEDS ORDERED: AZITHROMYCIN 500 MG TAB PO SCH (09:00)
[2021-09-21] MEDS: NON FORMULARY DRUG (Empagliflozin [Jardiance] 25 MG Tablet) PO SCH (09:25)
[2021-09-21] MEDS: LORATADINE 10 MG TAB PO SCH (09:25)
[2021-09-21] MEDS: buPROPion XL 300 MG TAB.ER.24H PO SCH (09:26)
[2021-09-21] MEDS: EZETIMIBE 10 MG TAB PO SCH (09:26)
[2021-09-21] MEDS: PRASUGREL 10 MG TAB PO SCH (09:26)
[2021-09-21 09:33] LABS: Basophils # (A) 0.05 X 10*3/uL (0.00-0.10); Basophils % (A) 0.3 %; Eosinophils # (A) 0.01 X 10*3/uL (0.04-0.35); Eosinophils % (A) 0.1 %; HCT 36.6 % (37.2-46.3); HGB 11.4 g/dL (12.0-15.0); Lymphocytes # (A) 0.81 X 10*3/uL (0.90-5.00); Lymphocytes % (A) 4.6 %; MCH 28.5 pg (27.0-32.0); MCHC 31.1 g/dL (32.0-37.0); MCV 91.5 fL (80.0-97.0); Mean Platelet Volume 9.7 fL (9.5-12.2); Monocytes # (A) 1.37 X 10*3/uL (0.20-1.00); Monocytes % (A) 7.8 %; Neutrophils # (A) 15.17 X 10*3/uL (1.80-7.70); Neutrophils % (A) 86.3 %; Platelet Count 202 X 10*3/uL (140-440); RDW 13.4 % (11.5-14.5); WBC 17.56 X 10*3/uL (4.50-10.00)
[2021-09-21 09:56] LABS: African American GFR (CKD) 89.5 (60.0-200.0); Anion Gap 18.6 mmol/L (10.00-18.00); BUN/Creat Ratio 25.78 Ratio (12.00-20.00); Blood Urea Nitrogen 23.2 mg/dL (9.0-27.0); Calcium 8.5 mg/dL (8.7-10.3); Carbon Dioxide 15.4 mmol/L (20.0-27.5); Non-African American GFR(CKD) 77.2 (60.0-200.0); Potassium 3.4 mmol/L (3.5-5.5)
[2021-09-21] MEDS: CEFEPIME 1 GM in SODIUM CHLORIDE 0.9% 50 ML IVPB SCH ×2 (10:02→20:40)
[2021-09-21] MEDS: VANCOMYCIN 1,500 MG in SODIUM CHLORIDE 0.9% 250 ML IVPB SCH ×2 (10:11→21:06)
[2021-09-21 11:47] LABS: Glucose,Whole Blood 145 mg/dL (75-99)
[2021-09-21] MEDS ORDERED: Magnesium Replacement Protocol 1 EACH MISC MISCELLANE PRN (15:05)
[2021-09-21] MEDS ORDERED: Potassium Replacement Protocol 1 EACH MISC MISCELLANE PRN ×2 (15:05→15:11)
--- NOTE | 2021-09-21 15:34 | PN ---
PROGRESS NOTE DATE OF SERVICE: 09/21/2021 This 46-year-old woman who was admitted with significant pneumonia is significantly immunosuppressed also. The patient had multiple hospital admissions as well. The patient had history of recent Covid pneumonia as well. The patient's was started on vancomycin. Cultures are pending at this time. Multiple consultants are following the patient including Infectious Disease and Pulmonary. PAST MEDICAL HISTORY: Reviewed. REVIEW OF SYSTEMS: Cardiovascular system: No angina or palpitations. Respiratory: As mentioned earlier. GI: No nausea or vomiting. : No dysuria. Nervous system: No numbness or weakness. CURRENT MEDICATIONS: Reviewed and include: Cefepime and vancomycin, [employer], DuoNeb, Lipitor. Doses and other medications reviewed. PHYSICAL EXAMINATION: Alert and oriented times three. Pulse is 52. Blood pressure 93/60, respirations 16, temperature 98.6, pulse ox 98% on room air. HEENT: Conjunctivae normal. Oral mucosa moist. Neck: No JVD. Cardiovascular: S1, S2. Respiratory: Breath sounds diminished in the bases. A few scattered rhonchi. Abdomen is soft, nontender. Nervous system: No focal deficits. LABORATORY DATA: WBC 17.2, hemoglobin 12.4, sodium 132, potassium 3.4. ASSESSMENT: 1. Acute left lower lobe pneumonia possibly gram-negative with early sepsis on broad- spectrum IV antibiotics including vancomycin and cefepime for broad spectrum coverage in an immunosuppressed individual. Present on admission. 2. History of recent Covid 19 infection. 3. Diabetes mellitus type 2 with hyperglycemia, uncontrolled. 4. Decreased CO2. 5. Hyponatremia. 6. Elevated WBC. 7. Diabetes mellitus type 2. 8. Hyperlipidemia. 9. History of myocardial infarction. 10.Acute myelocytic leukemia with chemo. 11.History of hypokalemia and hypomagnesemia. 12.History of chronic ygqil-dsrjaj-yenp disease. 13.History of BOOP. 14.History of adenoidectomy. 15.History of cholecystectomy. 16.History of coronary artery disease, stent. 17.Immunosuppressed. 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 19.History of depression. 20.FULL CODE. RECOMMENDATIONS AND DISCUSSION: I recommend to continue current medications, management and symptomatic treatment. Otherwise, I would also recommend serum acetone to complete the workup. Otherwise, repeat the labs. Continue with broad-spectrum antibiotics. Follow closely with infectious Disease and Pulmonary. The prognosis guarded because of the multiple complex medical issues. Discussed with the patient who understands and agrees. See orders for details. MMODL / IJN: [id number] / JENNIE
[2021-09-21] MEDS: POTASSIUM CHLORIDE ER 20 MEQ TAB.ER PO SCH ×2 (16:18→17:00)
--- NOTE | 2021-09-21 17:00 | P.PN ---
Subjective Progress Note Date: 09/21/21 This is a 46-year-old female, known history of allogenic bone marrow transplant back in 1998. 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 Her bone marrow transplant was performed at the [facility] and she has been following up with Dr. 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 Patient has been treated with multiple bronchodilators, and surprisingly she has been doing quite well. She was even tried on prednisone relatively high dose for her bronchiolitis obliterans syndrome patient initially improved but, later became worse. Patient was treated at one point in the hospital with high dose IV Solu- Medrol, and at one point Dr. patton entertained the possibility whether the patient is a candidate for plasmapheresis, IVIG G, rituxin, cyclosporine, Prograf, CellCept, and even raise the possibility of lung transplantation. Apparently the patient responded at the time to steroids, and she has not been on any oral systemic steroids since then. Patient was treated mostly with inhalers in the form of albuterol, Spiriva, Singulair, and has done fairly well. Supposedly her FEV1 is in the range of 45%. Her other medical problems include insulin-dependent diabetes mellitus type 2. Patient came into the ER today with 1 day history of cough, and shortness of breath. Patient was also complaining of discomfort in the left mid upper back. Pain was pleuritic in nature. Hence a CT angiogram of the chest was done, there was no evidence of pulmonary embolism but there was evidence of moderate size area of left lower lobe airspace consolidation consistent with pneumonia with air bronchogram noted. Patient was also noted to have leukocytosis with WBC count of 25.6, electrolytes were normal and renal profile was normal patient had negative testing for COVID- 19 infection and negative testing for influenza. However looking back on 07/25/21, patient did have positive PCR for COVID-19 but she has fully recovered since then. The patient is seen today 09/21/2021 in follow-up on the regular medical floor. She is currently sitting up in bed. Awake and alert in no acute distress. She is maintaining O2 saturations in the 90s on room air. She did have a temperature of 102.4 has since been afebrile. She had a negative Legionella. Negative mycoplasma. She is empirically on vancomycin and cefepime. She did have a posterior retrocardiac infiltrate in the left lung. I count 17.5. Hemoglobin 11.4. Sodium 134. Potassium 3.4. Creatinine 0.9. Objective - Vital Signs Vital signs: Vital Signs Temp 98.3 F 09/21/21 15:00 Pulse 80 09/21/21 15:34 Resp 16 09/21/21 15:34 BP 127/67 09/21/21 15:00 Pulse Ox 93 L 09/21/21 15:00 Intake & Output 09/20/21 09/21/21 09/21/21 18:59 06:59 18:59 Intake Total 300 536 Output Total 1000 Balance 300 -464 Weight 87.09 kg Intake: IV 300 300 Azithromycin 500 mg In 250 Sodium Chloride 0.9% 250 ml @ 250 mls/hr IVPB ONCE STA Rx#:[id number] Cefepime 1 gm In Sodium 50 Chloride 0.9% 50 ml @ 12. 5 mls/hr IVPB Q12HR [facility] Rx#:[id number] Vancomycin 1,500 mg In 250 Sodium Chloride 0.9% 250 ml @ 125 mls/hr IVPB Q12HR [facility] Rx#:[id number] cefTRIAXone 2 gm In 50 Sodium Chloride 0.9% 50 ml @ 100 mls/hr IVPB ONCE STA Rx#:[id number] Oral 236 Output: Urine 1000 Other: Voiding Method Toilet - Exam GENERAL EXAM: Alert, pleasant 46-year-old female patient, on room air, comfortable in no apparent distress. HEAD: Normocephalic. EYES: Normal reaction of pupils, equal size. NOSE: Clear with pink turbinates. THROAT: No erythema or exudates. NECK: No masses, no JVD. CHEST: No chest wall deformity. LUNGS: Equal air entry with rhonchi in the left lung base. CVS: S1 and S2 normal with no audible murmur, regular rhythm. ABDOMEN: No hepatosplenomegaly, normal bowel sounds, no guarding or rigidity. SPINE: No scoliosis or deformity SKIN: No rashes CENTRAL NERVOUS SYSTEM: No focal deficits, tone is normal in all 4 extremities. EXTREMITIES: There is no peripheral edema. No clubbing, no cyanosis. Peripheral pulses are intact. - Labs CBC & Chem 7: 09/21/21 06:24 09/21/21 06:24 Labs: Abnormal Lab Results - Last 24 Hours (Table) 09/20/21 09/20/21 09/21/21 Range/Units 12:05 21:58 06:24 WBC 17.56 H (4.50-10.00) X 10*3/uL RBC 4.00 L (4.10-5.20) X 10*6/uL Hgb 11.4 L (12.0-15.0) g/dL Hct 36.6 L (37.2-46.3) % MCHC 31.1 L (32.0-37.0) g/dL Immature Gran # 0.15 H (0.00-0.04) X 10*3/uL Neutrophils # 15.17 H (1.80-7.70) X 10*3/uL Lymphocytes # 0.81 L (0.90-5.00) X 10*3/uL Monocytes # 1.37 H (0.20-1.00) X 10*3/uL Eosinophils # 0.01 L (0.04-0.35) X 10*3/uL Sodium (135-145) mmol/L Potassium (3.5-5.5) mmol/L Carbon Dioxide (20.0-27.5) mmol/L Anion Gap (10.00-18.00) mmol/L BUN/Creatinine Ratio (12.00-20.00) Ratio POC Glucose (mg/dL) 200 H (75-99) mg/dL Calcium (8.7-10.3) mg/dL Procalcitonin 3.09 H (0.02-0.09) ng/mL 09/21/21 09/21/21 09/21/21 Range/Units 06:24 07:11 11:45 WBC (4.50-10.00) X 10*3/uL RBC (4.10-5.20) X 10*6/uL Hgb (12.0-15.0) g/dL Hct (37.2-46.3) % MCHC (32.0-37.0) g/dL Immature Gran # (0.00-0.04) X 10*3/uL Neutrophils # (1.80-7.70) X 10*3/uL Lymphocytes # (0.90-5.00) X 10*3/uL Monocytes # (0.20-1.00) X 10*3/uL Eosinophils # (0.04-0.35) X 10*3/uL Sodium 134 L (135-145) mmol/L Potassium 3.4 L (3.5-5.5) mmol/L Carbon Dioxide 15.4 L (20.0-27.5) mmol/L Anion Gap 18.60 H (10.00-18.00) mmol/L BUN/Creatinine Ratio 25.78 H (12.00-20.00) Ratio POC Glucose (mg/dL) 110 H 145 H (75-99) mg/dL Calcium 8.5 L (8.7-10.3) mg/dL Procalcitonin (0.02-0.09) ng/mL Microbiology - Last 24 Hours (Table) 09/20/21 17:47 Blood Fungal Culture - Preliminary Blood Assessment and Plan Assessment: 1 Acute community-acquired pneumonia of the left lower lobe area currently on vancomycin and cefepime 2 Status post allogeneic bone marrow transplant in 1998 for acute myelogenous leukemia 3 History of COVID-19 infection, resolved 4 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 Isabel Current treatment plan for now Follow-up chest x-ray in a.m. We will continue to follow I, the cosigning physician, performed a history & physical examination of the patient. Lungs sounds rhonchi in the left lung base. Maintaining good O2 saturations in the 90s on room air. I discussed the assessment and plan of care with my nurse practitioner, Fani Pacheco. I attest to the above note as dictated by her.
--- NOTE | 2021-09-21 17:01 | P.CONS ---
History of Present Illness - Reason for Consult Consult date: 09/21/21 Hx bone marrow transplant Requesting physician: Marshall Bronson - Chief Complaint fever, SOB - History of Present Illness Mrs. Garcia is a very pleasant female we have been asked to see as she is acutely ill with pneumonia and has Hx of AML, with chemo and 13 mo remission t hen BMT 1998. Pt had treatment and transplant at [facility], she has not been there in about 10 years. She follows with her PCP who monitors labs. She states feeling pretty good today, no fever this AM, no sore throat, chest pain, nausea, abd pain, acute changes in bowel or bladder. Review of Systems 10 point ROS is neg Past Medical History Past Medical History: Cancer, Diabetes Mellitus, Hyperlipidemia, Myocardial Infarction (MA), Respiratory Disorder Additional Past Medical History / Comment(s): 1997 acute myelocytic leukemia with chemo, MA r/t chemo agent causing hypokalemia and hypomagnesemia, 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 Pt has clausterphobia. Date of Last Stent Placement:: July 18, 2021 Past Psychological History: Depression Additional Psychological History / Comment(s): Pt resides with her spouse. She is independent. She works as a medical transcriber. She has clausterphobia Smoking Status: Never smoker Past Alcohol Use History: Rare Past Drug Use History: None Reported - Past Family History Father Additional Family Medical History / Comment(s): Sari of a drug overdose. Mother Family Medical History: Coronary Artery Disease (CAD), Diabetes Mellitus Additional Family Medical History / Comment(s): Mother had CABG and aortic aneurysm repair. Medications and Allergies Home Medications Medication Instructions Recorded Confirmed Type Ezetimibe [Zetia] 10 mg PO DAILY 07/30/18 09/20/21 History Montelukast [Singulair] 10 mg PO HS 07/30/18 09/20/21 History Omeprazole 40 mg PO BID 07/30/18 09/20/21 History buPROPion HCL [Wellbutrin XL] 300 mg PO DAILY 07/30/18 09/20/21 History lisinopriL [Prinivil] 5 mg PO HS 07/30/18 09/20/21 History Hydrochlorothiazide 12.5 mg PO DAILY 08/06/20 09/20/21 History [hydroCHLOROthiazide] Aspirin EC [Ecotrin Low Dose] 81 mg PO HS 09/20/21 09/20/21 History Empagliflozin [Jardiance] 25 mg PO DAILY 09/20/21 09/20/21 History Fexofenadine HCl [Tri Allergy] 180 mg PO DAILY 09/20/21 09/20/21 History Nitroglycerin Sl Tabs [Nitrostat] 0.4 mg PO Q5M PRN 09/20/21 09/20/21 History Prasugrel [Effient] 10 mg PO DAILY 09/20/21 09/20/21 History Rosuvastatin Calcium 20 mg PO HS 09/20/21 09/20/21 History Allergies Allergy/AdvReac Type Severity Reaction Status Date / Time codeine Allergy Severe Anaphylaxis Verified 09/20/21 12:24 Sulfa (Sulfonamide Allergy Intermediate Rash/Hives Verified 09/20/21 12:24 Antibiotics) Physical Exam Vitals: Vital Signs Temp Pulse Pulse Resp BP Pulse Ox 09/21/21 15:34 80 16 09/21/21 15:24 84 16 09/21/21 15:00 98.3 F 102 H 20 127/67 93 L 09/21/21 14:00 16 09/21/21 12:45 82 18 09/21/21 12:35 88 16 09/21/21 08:47 82 16 09/21/21 08:40 84 18 09/21/21 08:00 16 09/21/21 07:00 98.6 F 90 16 93/60 93 L 09/21/21 02:33 98.1 F 83 17 83/50 94 L 09/20/21 20:07 102.4 F H 108 H 16 101/66 94 L 09/20/21 20:00 16 Intake and Output 09/21/21 09/21/21 09/21/21 06:59 14:59 22:59 Intake Total 536 Output Total 1000 Balance -464 Intake: IV 300 Cefepime 1 gm In Sodium 50 Chloride 0.9% 50 ml @ 12. 5 mls/hr IVPB Q12HR [facility] Rx#:[id number] Vancomycin 1,500 mg In 250 Sodium Chloride 0.9% 250 ml @ 125 mls/hr IVPB Q12HR [facility] Rx#:[id number] Oral 236 Output: Urine 1000 Other: Voiding Method Toilet - Constitutional General appearance: average body habitus, cooperative, no acute distress - EENT Eyes: anicteric sclerae, EOMI ENT: hearing grossly normal, normal oropharynx - Neck Neck: no lymphadenopathy - Respiratory very tight, poor air entry Respiratory: bilateral: wheezing (throughout ) - Cardiovascular Rhythm: regular Heart sounds: normal: S1, S2 Abnormal Heart Sounds: no systolic murmur, no diastolic murmur, no rub, no S3 Gallop, no S4 Gallop, no click, no other leg Peripheral Edema: bilateral: None - Gastrointestinal General gastrointestinal: no absent bowel sounds, no decreased bowel sounds, no distended, no hepatomegaly, no hyperactive bowel sounds, normal bowel sounds, no organomegaly, no rigid, no scaphoid, soft, no splenomegaly, no tenderness, no umbilical hernia, no ventral hernia - Integumentary Integumentary: normal, normal turgor - Neurologic Neurologic: CNII-XII intact - Musculoskeletal Musculoskeletal: strength equal bilaterally - Psychiatric Psychiatric: A&O x's 3, appropriate affect, intact judgment & insight Results CBC & Chem 7: 09/21/21 06:24 09/21/21 06:24 Labs: Abnormal Lab Results - Last 24 Hours (Table) 09/20/21 09/20/21 09/21/21 Range/Units 12:05 21:58 06:24 WBC 17.56 H (4.50-10.00) X 10*3/uL RBC 4.00 L (4.10-5.20) X 10*6/uL Hgb 11.4 L (12.0-15.0) g/dL Hct 36.6 L (37.2-46.3) % MCHC 31.1 L (32.0-37.0) g/dL Immature Gran # 0.15 H (0.00-0.04) X 10*3/uL Neutrophils # 15.17 H (1.80-7.70) X 10*3/uL Lymphocytes # 0.81 L (0.90-5.00) X 10*3/uL Monocytes # 1.37 H (0.20-1.00) X 10*3/uL Eosinophils # 0.01 L (0.04-0.35) X 10*3/uL Sodium (135-145) mmol/L Potassium (3.5-5.5) mmol/L Carbon Dioxide (20.0-27.5) mmol/L Anion Gap (10.00-18.00) mmol/L BUN/Creatinine Ratio (12.00-20.00) Ratio POC Glucose (mg/dL) 200 H (75-99) mg/dL Calcium (8.7-10.3) mg/dL Procalcitonin 3.09 H (0.02-0.09) ng/mL 09/21/21 09/21/21 09/21/21 Range/Units 06:24 07:11 11:45 WBC (4.50-10.00) X 10*3/uL RBC (4.10-5.20) X 10*6/uL Hgb (12.0-15.0) g/dL Hct (37.2-46.3) % MCHC (32.0-37.0) g/dL Immature Gran # (0.00-0.04) X 10*3/uL Neutrophils # (1.80-7.70) X 10*3/uL Lymphocytes # (0.90-5.00) X 10*3/uL Monocytes # (0.20-1.00) X 10*3/uL Eosinophils # (0.04-0.35) X 10*3/uL Sodium 134 L (135-145) mmol/L Potassium 3.4 L (3.5-5.5) mmol/L Carbon Dioxide 15.4 L (20.0-27.5) mmol/L Anion Gap 18.60 H (10.00-18.00) mmol/L BUN/Creatinine Ratio 25.78 H (12.00-20.00) Ratio POC Glucose (mg/dL) 110 H 145 H (75-99) mg/dL Calcium 8.5 L (8.7-10.3) mg/dL Procalcitonin (0.02-0.09) ng/mL Microbiology - Last 24 Hours (Table) 09/20/21 17:47 Blood Fungal Culture - Preliminary Blood Chest x-ray: report reviewed CT scan - chest: report reviewed (no PE) Assessment and Plan (1) AML (acute myeloid leukemia) in remission Narrative/Plan: 13 mo remission after chemo then, BMT. Has not seen transplant team in 10 years Reviewed CBC and notes values and diff. Pt is acutely ill. Will follow while inpt to see if values normalize as she recovers. Ig levels will be checked Current Visit: No Status: Chronic Priority: Low Code(s): C92.01 - ACUTE MYELOBLASTIC LEUKEMIA, IN REMISSION SNOMED Code(s): 11417203
[2021-09-21 17:30] LABS: Glucose,Whole Blood 173 mg/dL (75-99)
[2021-09-21] MEDS: lisinopriL 5 MG TAB PO SCH (20:39)
[2021-09-21] MEDS: MONTELUKAST 10 MG TAB PO SCH (20:39)
[2021-09-21] MEDS: ASPIRIN 81 MG PO SCH (20:40)
[2021-09-21] MEDS: ATORVASTATIN 40 MG TAB PO SCH (20:40)
[2021-09-21 20:45] LABS: Glucose,Whole Blood 239 mg/dL (75-99)
[2021-09-21] MEDS: INSULIN ASPART (NovoLOG) 100 UNIT/ML VIAL SQ SCH (22:51)
[2021-09-22 00:36] LABS: Immunoglobulin M 31.8 mg/dL (40.0-280.0)
[2021-09-22 07:17] LABS: Glucose,Whole Blood 121 mg/dL (75-99)
[2021-09-22] MEDS ORDERED: INSULIN ASPART (NovoLOG) 100 UNIT/ML VIAL SQ SCH (07:30)
[2021-09-22 07:53] LABS: Basophils % (A) 0 %; Eosinophils # (A) 0.1 k/uL (0-0.7); Eosinophils % (A) 0 %; HCT 35.4 % (34.0-46.0); HGB 10.9 gm/dL (11.4-16.0); Hypochromasia Slight; Lymphocytes # (A) 0.8 k/uL (1.0-4.8); Lymphocytes % (A) 5 %; MCHC 30.8 g/dL (31.0-37.0); MCV 94.1 fL (80.0-100.0); Mean Platelet Volume 7.3; Monocytes # (A) 0.9 k/uL (0-1.0); Monocytes % (A) 6 %; Neutrophils # (A) 13.8 k/uL (1.3-7.7); Neutrophils % (A) 87 %; Platelet Count 253 k/uL (150-450); RBC 3.76 m/uL (3.80-5.40); RDW 13.2 % (11.5-15.5); WBC 15.8 k/uL (3.8-10.6)
[2021-09-22] MEDS ORDERED: VANCOMYCIN TROUGH DUE 1 EACH MISC MISCELLANE ONE (08:00)
--- NOTE | 2021-09-22 08:01 | XR ---
EXAMINATION TYPE: XR chest 2V DATE OF EXAM: 09/22/2021 COMPARISON: 09/21/2021 HISTORY: Chest pain TECHNIQUE: Frontal and lateral views of the chest are obtained. FINDINGS: There is evidence of left perihilar infiltrate. Correlate for developing pneumonia. No evidence for pneumothorax. No pleural effusion. The cardiac silhouette size is within normal limits. The osseous structures are grossly intact. IMPRESSION: 1. There is evidence of left perihilar infiltrate. Correlate for developing pneumonia.
[2021-09-22 08:04] LABS: African American GFR (CKD) >90 (>60 ml/min/1.73 sqM); Anion Gap 12 mmol/L; Blood Urea Nitrogen 19 mg/dL (7-17); Carbon Dioxide 17 mmol/L (22-30); Chloride 105 mmol/L (98-107); Glucose 126 mg/dL (74-99); Magnesium 2.1 mg/dL (1.6-2.3); Non-African American GFR(CKD) >90 (>60 ml/min/1.73 sqM); Potassium 3.9 mmol/L (3.5-5.1); Sodium 134 mmol/L (137-145)
[2021-09-22] MEDS: EZETIMIBE 10 MG TAB PO SCH (08:50)
[2021-09-22] MEDS: PRASUGREL 10 MG TAB PO SCH (08:50)
[2021-09-22] MEDS: HYDROcodone/APAP 5-325MG 1 EACH TAB PO PRN ×2 (08:50→21:41)
[2021-09-22] MEDS: PANTOPRAZOLE 40 MG TABLET PO SCH ×2 (08:51→16:06)
[2021-09-22] MEDS: buPROPion XL 300 MG TAB.ER.24H PO SCH (08:51)
[2021-09-22] MEDS: NON FORMULARY DRUG (Empagliflozin [Jardiance] 25 MG Tablet) PO SCH (08:51)
[2021-09-22] MEDS: LORATADINE 10 MG TAB PO SCH (08:51)
[2021-09-22] MEDS: CEFEPIME 1 GM in SODIUM CHLORIDE 0.9% 50 ML IVPB SCH (08:53)
[2021-09-22] MEDS: VANCOMYCIN 1,500 MG in SODIUM CHLORIDE 0.9% 250 ML IVPB SCH (09:36)
--- NOTE | 2021-09-22 09:41 | P.CONS ---
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, and has been previously treated with different modalities and steroids, patient now presenting to the hospital with 1 day history of increasing shortness of breath and is complaining of left upper mid back pain patient describes the pain to be sharp intensity is 5-6 out of 10 and worse with taking a deep breath patient on presentation to the hospital did have a fever of 102 F did have mild hypoxemia patient did have a elevated white count of 25.6 which is down to 17.56 today did have normal creatinine liver exams are normal procalcitonin was 3.09 blood cultures obtained which are c urrently pending patient did have a CT angiogram of the chest no evidence of PE moderate size left upper lobe consolidation patient has been admitted to the hospital currently being treated with vancomycin and cefepime infectious disease was consulted for further management of antibiotic therapy Review of system: CONSTITUTIONAL: Positive for weakness along with the fever. EYES: No complaint. ENT: No complaint. RESPIRATORY: As per history of present illness. CARDIOVASCULAR: No complaint. GENITOURINARY: No complaint. GASTROINTESTINAL: No complaint. MUSCULOSKELETAL: No complaint. INTEGUMENTARY: No complaint. PSYCHOLOGIC: No complaint. ENDOCRINE: No complaint. NEUROLOGIC: No complaint. Past medical history : Reviewed, documented below Past surgical history : Reviewed, documented below Social history: Reviewed, documented below Medications: Reviewed, as documented below EXAMINATION: Vital sigans= Reviewed and documented below GENERAL DESCRIPTION: Middle-aged male lying in bed, no distress. No tachypnea or accessory muscle of respiration use. HEENT: Shows Pallor , no scleral icterus. Oral mucous membrane is dry. NECK: Trachea central, no thyromegaly. LUNGS: Unlabored breathing, decreased breath sounds at the base. No wheeze or crackle. HEART: S1, S2, regular rate and rhythm. ABDOMEN: Soft, no tenderness , guarding or rigidity EXTREMITIES: No edema of feet. SKIN: No rash, no masses palpable. NEUROLOGICAL: The patient is awake, alert, oriented x3, mood and affect normal. LABS AND RADIOLOGY: Reviewed results see below Assessment : Patient presented to hospital with left-sided pleuritic chest pain shortness of breath and cough in this we did have a fever with evidence of left upper lobe pneumonia more likely community-acquired has the patient symptom has been going on for a day before presentation the hospital clinical suspicious low for resistant gram-positive or gram-negative pneumonia provided and excluded Plan: 1-obtain sputum for Gram stain and culture 2-adjust the dose of cefepime to 2 g every 8 hourly with a normal kidney function continue vancomycin We will follow on clinical condition and cultures to further adjust medication if needed Thank you for this consultation we will follow the patient along with you Past Medical History Past Medical History: Cancer, Diabetes Mellitus, Hyperlipidemia, Myocardial Infarction (IA), Respiratory Disorder Additional Past Medical History / Comment(s): 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 Pt has clausterphobia. Date of Last Stent Placement:: July 18, 2021 Past Psychological History: Depression Additional Psychological History / Comment(s): Pt resides with her spouse. She is independent. 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 She has clausterphobia Smoking Status: Never smoker Past Alcohol Use History: Rare Past Drug Use History: None Reported - Past Family History Father Additional Family Medical History / Comment(s): Sari of a drug overdose. Mother Family Medical History: Coronary Artery Disease (CAD), Diabetes Mellitus Additional Family Medical History / Comment(s): Mother had CABG and aortic aneurysm repair. Medications and Allergies Home Medications Medication Instructions Recorded Confirmed Type Ezetimibe [Zetia] 10 mg PO DAILY 07/30/18 09/20/21 History Montelukast [Singulair] 10 mg PO HS 07/30/18 09/20/21 History Omeprazole 40 mg PO BID 07/30/18 09/20/21 History buPROPion HCL [Wellbutrin XL] 300 mg PO DAILY 07/30/18 09/20/21 History lisinopriL [Prinivil] 5 mg PO HS 07/30/18 09/20/21 History Hydrochlorothiazide 12.5 mg PO DAILY 08/06/20 09/20/21 History [hydroCHLOROthiazide] Aspirin EC [Ecotrin Low Dose] 81 mg PO HS 09/20/21 09/20/21 History Empagliflozin [Jardiance] 25 mg PO DAILY 09/20/21 09/20/21 History Fexofenadine HCl [Tri Allergy] 180 mg PO DAILY 09/20/21 09/20/21 History Nitroglycerin Sl Tabs [Nitrostat] 0.4 mg PO Q5M PRN 09/20/21 09/20/21 History Prasugrel [Effient] 10 mg PO DAILY 09/20/21 09/20/21 History Rosuvastatin Calcium 20 mg PO HS 09/20/21 09/20/21 History Allergies Allergy/AdvReac Type Severity Reaction Status Date / Time codeine Allergy Severe Anaphylaxis Verified 09/20/21 12:24 Sulfa (Sulfonamide Allergy Intermediate Rash/Hives Verified 09/20/21 12:24 Antibiotics) Physical Exam Vitals: Vital Signs Temp Pulse Pulse Resp BP BP Pulse Ox 09/21/21 08:47 82 16 09/21/21 08:40 84 18 09/21/21 08:00 16 09/21/21 07:00 98.6 F 90 16 93/60 93 L 09/21/21 02:33 98.1 F 83 17 83/50 94 L 09/20/21 20:07 102.4 F H 108 H 16 101/66 94 L 09/20/21 20:00 16 09/20/21 16:02 16 09/20/21 15:45 98.7 F 101 H 16 110/76 93 L 09/20/21 15:37 98.9 F 97 18 91/65 93 L 09/20/21 15:23 97 18 91/65 93 L 09/20/21 14:14 107 H 20 104/70 98 09/20/21 13:07 104 H 20 105/69 98 09/20/21 12:56 20 Intake and Output 09/20/21 09/21/21 09/21/21 22:59 06:59 14:59 Intake Total 300 118 Output Total 600 Balance 300 -482 Intake: IV 300 Azithromycin 500 mg In 250 Sodium Chloride 0.9% 250 ml @ 250 mls/hr IVPB ONCE STA Rx#:[id number] cefTRIAXone 2 gm In 50 Sodium Chloride 0.9% 50 ml @ 100 mls/hr IVPB ONCE STA Rx#:[id number] Oral 118 Output: Urine 600 Other: Voiding Method Toilet Weight 87.09 kg Results CBC & Chem 7: 09/22/21 07:11 09/22/21 07:11 Labs: Abnormal Lab Results - Last 24 Hours (Table) 09/20/21 09/20/21 09/20/21 Range/Units 12:04 12:04 12:04 WBC 25.6 H (3.8-10.6) k/uL RBC (4.10-5.20) X 10*6/uL Hgb (12.0-15.0) g/dL Hct (37.2-46.3) % MCHC (32.0-37.0) g/dL Immature Gran # (0.00-0.04) X 10*3/uL Neutrophils # 23.3 H (1.3-7.7) k/uL Lymphocytes # 0.7 L (1.0-4.8) k/uL Monocytes # 1.1 H (0-1.0) k/uL Eosinophils # (0.04-0.35) X 10*3/uL APTT 21.7 L (22.0-30.0) sec Sodium 134 L (137-145) mmol/L Potassium (3.5-5.5) mmol/L Carbon Dioxide 17 L (22-30) mmol/L Anion Gap (10.00-18.00) mmol/L BUN 22 H (7-17) mg/dL BUN/Creatinine Ratio (12.00-20.00) Ratio Glucose 218 H (74-99) mg/dL POC Glucose (mg/dL) (75-99) mg/dL Calcium (8.7-10.3) mg/dL Procalcitonin (0.02-0.09) ng/mL 09/20/21 09/20/21 09/21/21 Range/Units 12:05 21:58 06:24 WBC 17.56 H (3.8-10.6) k/uL RBC 4.00 L (4.10-5.20) X 10*6/uL Hgb 11.4 L (12.0-15.0) g/dL Hct 36.6 L (37.2-46.3) % MCHC 31.1 L (32.0-37.0) g/dL Immature Gran # 0.15 H (0.00-0.04) X 10*3/uL Neutrophils # 15.17 H (1.3-7.7) k/uL Lymphocytes # 0.81 L (1.0-4.8) k/uL Monocytes # 1.37 H (0-1.0) k/uL Eosinophils # 0.01 L (0.04-0.35) X 10*3/uL APTT (22.0-30.0) sec Sodium (137-145) mmol/L Potassium (3.5-5.5) mmol/L Carbon Dioxide (22-30) mmol/L Anion Gap (10.00-18.00) mmol/L BUN (7-17) mg/dL BUN/Creatinine Ratio (12.00-20.00) Ratio Glucose (74-99) mg/dL POC Glucose (mg/dL) 200 H (75-99) mg/dL Calcium (8.7-10.3) mg/dL Procalcitonin 3.09 H (0.02-0.09) ng/mL 09/21/21 09/21/21 09/21/21 Range/Units 06:24 07:11 11:45 WBC (3.8-10.6) k/uL RBC (4.10-5.20) X 10*6/uL Hgb (12.0-15.0) g/dL Hct (37.2-46.3) % MCHC (32.0-37.0) g/dL Immature Gran # (0.00-0.04) X 10*3/uL Neutrophils # (1.3-7.7) k/uL Lymphocytes # (1.0-4.8) k/uL Monocytes # (0-1.0) k/uL Eosinophils # (0.04-0.35) X 10*3/uL APTT (22.0-30.0) sec Sodium 134 L (137-145) mmol/L Potassium 3.4 L (3.5-5.5) mmol/L Carbon Dioxide 15.4 L (22-30) mmol/L Anion Gap 18.60 H (10.00-18.00) mmol/L BUN (7-17) mg/dL BUN/Creatinine Ratio 25.78 H (12.00-20.00) Ratio Glucose (74-99) mg/dL POC Glucose (mg/dL) 110 H 145 H (75-99) mg/dL Calcium 8.5 L (8.7-10.3) mg/dL Procalcitonin (0.02-0.09) ng/mL Microbiology - Last 24 Hours (Table) 09/20/21 17:47 Blood Fungal Culture - Preliminary Blood
[2021-09-22] MEDS: IPRATROPIUM-ALBUTEROL 3 ML NEB INHALATION SCH ×4 (10:15→21:24)
[2021-09-22] MEDS: SYMBICORT 160-4.5 MCG INHALER INHALATION SCH ×2 (10:15→21:24)
[2021-09-22 12:48] LABS: Glucose,Whole Blood 124 mg/dL (75-99)
[2021-09-22] MEDS: INSULIN ASPART (NovoLOG) 100 UNIT/ML VIAL SQ SCH ×3 (12:50→21:42)
--- NOTE | 2021-09-22 15:12 | P.PN ---
Subjective Progress Note Date: 09/22/21 This is a 46-year-old female, known history of allogenic bone marrow transplant back in 1998. 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 Her bone marrow transplant was performed at the [facility] and she has been following up with Dr. patton for what seems to be a chronic [id number] disease in the form of bronchiolitis obliterans syndrome. Patient has been treated with multiple bronchodilators, and surprisingly she has been doing quite well. She was even tried on prednisone relatively high dose for her bronchiolitis obliterans syndrome patient initially improved but, later became worse. Patient was treated at one point in the hospital with high dose IV Solu- Medrol, and at one point Dr. patton entertained the possibility whether the patient is a candidate for plasmapheresis, IVIG G, rituxin, cyclosporine, Prograf, CellCept, and even raise the possibility of lung transplantation. Apparently the patient responded at the time to steroids, and she has not been on any oral systemic steroids since then. Patient was treated mostly with inhalers in the form of albuterol, Spiriva, Singulair, and has done fairly well. Supposedly her FEV1 is in the range of 45%. Her other medical problems include insulin-dependent diabetes mellitus type 2. Patient came into the ER today with 1 day history of cough, and shortness of breath. Patient was also complaining of discomfort in the left mid upper back. Pain was pleuritic in nature. Hence a CT angiogram of the chest was done, there was no evidence of pulmonary embolism but there was evidence of moderate size area of left lower lobe airspace consolidation consistent with pneumonia with air bronchogram noted. Patient was also noted to have leukocytosis with WBC count of 25.6, electrolytes were normal and renal profile was normal patient had negative testing for COVID- 19 infection and negative testing for influenza. However looking back on 07/25/21, patient did have positive PCR for COVID-19 but she has fully recovered since then. The patient is seen today 09/21/2021 in follow-up on the regular medical floor. She is currently sitting up in bed. Awake and alert in no acute distress. She is maintaining O2 saturations in the 90s on room air. She did have a temperature of 102.4 has since been afebrile. She had a negative Legionella. Negative mycoplasma. She is empirically on vancomycin and cefepime. She did have a posterior retrocardiac infiltrate in the left lung. I count 17.5. Hemoglobin 11.4. Sodium 134. Potassium 3.4. Creatinine 0.9. The patient is seen today 09/22/2021 in follow-up on the regular medical floor. She is currently sitting up in bed. Awake and alert in no acute distress. She continues with a dry nonproductive cough. She is maintaining O2 saturations in the 90s on room air. She's been afebrile. Hemodynamically stable. Blood cultures reveal no growth. White count 15.8. Hemoglobin 10.9. Platelet count 253. Lymphocytes 0.8. Sodium 134. Potassium 3.9. Creatinine 0.78. Glucose 126. She is continued on DuoNeb inhalations, Symbicort, Singulair. She is on antibiotics in the form of vancomycin and cefepime. Chest x-ray continues to show a left perihilar infiltrate. Objective - Vital Signs Vital signs: Vital Signs Temp 99.0 F 09/22/21 07:00 Pulse 102 H 09/22/21 14:00 Resp 18 09/22/21 14:00 BP 93/58 09/22/21 07:00 Pulse Ox 85 L 09/22/21 07:00 Intake & Output 09/21/21 09/22/21 09/22/21 18:59 06:59 18:59 Intake Total 536 540 Output Total 1000 1200 Balance -464 -680 Intake: IV 300 300 Cefepime 1 gm In Sodium 50 50 Chloride 0.9% 50 ml @ 12. 5 mls/hr IVPB Q12HR [facility] Rx#:[id number] Vancomycin 1,500 mg In 250 250 Sodium Chloride 0.9% 250 ml @ 125 mls/hr IVPB Q12HR [facility] Rx#:[id number] Oral 236 240 Output: Urine 1000 1200 Other: Voiding Method Toilet Toilet Toilet # Voids 2 - Exam GENERAL EXAM: Alert, pleasant 46-year-old female patient, on room air, comfortable in no apparent distress. HEAD: Normocephalic. EYES: Normal reaction of pupils, equal size. NOSE: Clear with pink turbinates. THROAT: No erythema or exudates. NECK: No masses, no JVD. CHEST: No chest wall deformity. LUNGS: Equal air entry with rhonchi in the left lung base. CVS: S1 and S2 normal with no audible murmur, regular rhythm. ABDOMEN: No hepatosplenomegaly, normal bowel sounds, no guarding or rigidity. SPINE: No scoliosis or deformity SKIN: No rashes CENTRAL NERVOUS SYSTEM: No focal deficits, tone is normal in all 4 extremities. EXTREMITIES: There is no peripheral edema. No clubbing, no cyanosis. Peripheral pulses are intact. - Labs CBC & Chem 7: 09/22/21 07:11 09/22/21 07:11 Labs: Abnormal Lab Results - Last 24 Hours (Table) 09/21/21 09/21/21 09/21/21 Range/Units 06:24 17:28 20:42 WBC (3.8-10.6) k/uL RBC (3.80-5.40) m/uL Hgb (11.4-16.0) gm/dL MCHC (31.0-37.0) g/dL Neutrophils # (1.3-7.7) k/uL Lymphocytes # (1.0-4.8) k/uL Sodium (137-145) mmol/L Carbon Dioxide (22-30) mmol/L BUN (7-17) mg/dL Glucose (74-99) mg/dL POC Glucose (mg/dL) 173 H 239 H (75-99) mg/dL IgM 31.8 L (40.0-280.0) mg/dL 09/22/21 09/22/21 09/22/21 Range/Units 06:51 07:11 07:11 WBC 15.8 H (3.8-10.6) k/uL RBC 3.76 L (3.80-5.40) m/uL Hgb 10.9 L (11.4-16.0) gm/dL MCHC 30.8 L (31.0-37.0) g/dL Neutrophils # 13.8 H (1.3-7.7) k/uL Lymphocytes # 0.8 L (1.0-4.8) k/uL Sodium 134 L (137-145) mmol/L Carbon Dioxide 17 L (22-30) mmol/L BUN 19 H (7-17) mg/dL Glucose 126 H (74-99) mg/dL POC Glucose (mg/dL) 121 H (75-99) mg/dL IgM (40.0-280.0) mg/dL 09/22/21 Range/Units 11:40 WBC (3.8-10.6) k/uL RBC (3.80-5.40) m/uL Hgb (11.4-16.0) gm/dL MCHC (31.0-37.0) g/dL Neutrophils # (1.3-7.7) k/uL Lymphocytes # (1.0-4.8) k/uL Sodium (137-145) mmol/L Carbon Dioxide (22-30) mmol/L BUN (7-17) mg/dL Glucose (74-99) mg/dL POC Glucose (mg/dL) 124 H (75-99) mg/dL IgM (40.0-280.0) mg/dL Microbiology - Last 24 Hours (Table) 09/20/21 15:15 Blood Culture - Preliminary Blood No Growth after 24 hours 09/20/21 15:00 Blood Culture - Preliminary Blood No Growth after 24 hours Assessment and Plan Assessment: 1 Acute community-acquired pneumonia of the left lower lobe area currently on vancomycin and cefepime, remains stable and on room air 2 Status post allogeneic bone marrow transplant in 1998 for acute myelogenous leukemia 3 History of COVID-19 infection, resolved 4 History of graft versus host disease with bronchiolitis obliterans syndrome requiring bronchodilators and FEV1 in the range of 45% 5 History of chronic mild intermittent bronchial asthma 6 Hypertension 7 Hyperlipidemia 8 GERD without esophagitis Plan: The patient was seen and evaluated Chest x-ray and labs reviewed Current treatment plan for now Follow-up chest x-ray in a.m. Probable discharge in the a.m. We will continue to follow I, the cosigning physician, performed a history & physical examination of the patient. Lungs sounds rhonchi in the left lung base. Maintaining good O2 saturations in the 90s on room air. I discussed the assessment and plan of care with my nurse practitioner, Fani Pacheco. I attest to the above note as dictated by her.
--- NOTE | 2021-09-22 15:38 | P.PN ---
Subjective Progress Note Date: 09/22/21 Principal diagnosis: pneumonia, history of AML She is feeling better, still short of breath especially when laying flat and in am Objective - Vital Signs Vital signs: Vital Signs Temp 99.0 F 09/22/21 07:00 Pulse 92 09/22/21 10:30 Resp 18 09/22/21 07:00 BP 93/58 09/22/21 07:00 Pulse Ox 85 L 09/22/21 07:00 Intake & Output 09/21/21 09/22/21 09/22/21 18:59 06:59 18:59 Intake Total 536 240 Output Total 1000 500 Balance -464 -260 Intake: IV 300 Cefepime 1 gm In Sodium 50 Chloride 0.9% 50 ml @ 12. 5 mls/hr IVPB Q12HR [facility] Rx#:[id number] Vancomycin 1,500 mg In 250 Sodium Chloride 0.9% 250 ml @ 125 mls/hr IVPB Q12HR [facility] Rx#:[id number] Oral 236 240 Output: Urine 1000 500 Other: Voiding Method Toilet Toilet # Voids 2 - Exam Alert NADLungs with Upper expiratory wheeze Diaphoretic HR Tachy Abdomen soft Ext no edema NON focal neuro - Labs CBC & Chem 7: 09/22/21 07:11 09/22/21 07:11 Labs: Abnormal Lab Results - Last 24 Hours (Table) 09/21/21 09/21/21 09/21/21 Range/Units 06:24 17:28 20:42 WBC (3.8-10.6) k/uL RBC (3.80-5.40) m/uL Hgb (11.4-16.0) gm/dL MCHC (31.0-37.0) g/dL Neutrophils # (1.3-7.7) k/uL Lymphocytes # (1.0-4.8) k/uL Sodium (137-145) mmol/L Carbon Dioxide (22-30) mmol/L BUN (7-17) mg/dL Glucose (74-99) mg/dL POC Glucose (mg/dL) 173 H 239 H (75-99) mg/dL IgM 31.8 L (40.0-280.0) mg/dL 09/22/21 09/22/21 09/22/21 Range/Units 06:51 07:11 07:11 WBC 15.8 H (3.8-10.6) k/uL RBC 3.76 L (3.80-5.40) m/uL Hgb 10.9 L (11.4-16.0) gm/dL MCHC 30.8 L (31.0-37.0) g/dL Neutrophils # 13.8 H (1.3-7.7) k/uL Lymphocytes # 0.8 L (1.0-4.8) k/uL Sodium 134 L (137-145) mmol/L Carbon Dioxide 17 L (22-30) mmol/L BUN 19 H (7-17) mg/dL Glucose 126 H (74-99) mg/dL POC Glucose (mg/dL) 121 H (75-99) mg/dL IgM (40.0-280.0) mg/dL Microbiology - Last 24 Hours (Table) 09/20/21 15:15 Blood Culture - Preliminary Blood No Growth after 24 hours 09/20/21 15:00 Blood Culture - Preliminary Blood No Growth after 24 hours Assessment and Plan (1) Pneumonia Current Visit: Yes Status: Acute Code(s): J18.9 - PNEUMONIA, UNSPECIFIED ORGANISM SNOMED Code(s): 814309348 (2) Sepsis Current Visit: Yes Status: Acute Code(s): A41.9 - SEPSIS, UNSPECIFIED ORGANISM SNOMED Code(s): 14654449 (3) AML (acute myeloid leukemia) in remission Current Visit: No Status: Chronic Priority: Low Code(s): C92.01 - ACUTE MYELOBLASTIC LEUKEMIA, IN REMISSION SNOMED Code(s): 27883567 Plan: Assessment and Recommendations: Leukocytosis: secondary to active infection Acute Hypoxic respiratory failure: - CXRAY 09/22 Perihilar developing pnemonia, covid neg on admission. Fever/SIRS 3 - Will need a UA and culture for complete septic work-up History of AML: - Status post trasplant - No suggestive recurrence, will continue to monitor labs - IgG adequate
[2021-09-22] MEDS ORDERED: CEFEPIME 2 GM in SODIUM CHLORIDE 0.9% 50 ML IVPB SCH (16:00)
[2021-09-22] MEDS: CEFEPIME 2 GM in SODIUM CHLORIDE 0.9% 100 ML IVPB SCH (16:03)
[2021-09-22 16:23] LABS: Appearance,Urine Clear (Clear); Bilirubin,Urine Negative (Negative); Blood,Urine Negative (Negative); Color,Urine Light Yellow; Glucose,Urine (UA) 4+ (Negative); Leukocyte Esterase,Urine Negative (Negative); Nitrite,Urine Negative (Negative); Protein,Urine Trace (Negative); Specific Gravity,Urine 1.032 (1.001-1.035); Urobilinogen,Urine <2.0 mg/dL (<2.0)
[2021-09-22 16:49] LABS: Ketones,Urine 2+ (Negative)
[2021-09-22 17:01] LABS: Glucose,Whole Blood 173 mg/dL (75-99)
--- NOTE | 2021-09-22 19:44 | PN ---
PROGRESS NOTE DATE OF SERVICE: 09/22/2021 This 46-year-old woman who was admitted with Gram-negative pneumonia is on broad- spectrum IV antibiotics. Cultures are negative so far. The patient is immunosuppressed. No chest pain. No palpitations. No fever. PHYSICAL EXAMINATION: Alert and oriented x3. Pulse is 111, blood pressure is 138/77, respiration 18, temperature 98.6, pulse ox 92% on room air. HEENT: Conjunctivae normal. NECK: No jugular venous distention. CARDIOVASCULAR: S1, S2 muffled. RESPIRATION: Breath sounds diminished at the bases. A few crackles on the left posterior part. ABDOMEN: Soft. NERVOUS SYSTEM: No focal deficit. LABS: WBC 15.2, hemoglobin 10.2, sodium 134. Other labs are noted. ASSESSMENT: 1. Acute left lower lobe pneumonia, possibly Gram-negative, with early sepsis, on broad-spectrum IV antibiotics, including vancomycin and cefepime for broad-spectrum coverage in an immunosuppressed individual, present on admission. 2. History of recent COVID-19 infection. 3. Diabetes mellitus, type 2, with hyperglycemia, uncontrolled. 4. Decreased CO2. 5. Hyponatremia. 6. Elevated white count. 7. Hyperlipidemia. 8. History of myocardial infarction. 9. Acute myelocytic leukemia with chemo. 10.History of hypokalemia and hypomagnesemia. 11.History of chronic zesjv-yxmagm-keyj reaction. 12.History of BOOP. 13.History of adenoidectomy. 14.Cholecystectomy. 15.History of coronary artery disease, stent. 16.Immunosuppressed. 17.History of 1998 bone marrow transplant. 18.History of depression. 19.FULL CODE. RECOMMENDATIONS AND DISCUSSION: I recommend to continue current medications, continue with the monitoring, symptomatic treatment. Continue with the bronchodilators. Continue with the rest of the medications. Continue with the empiric antibiotics. Otherwise, closely monitor. Guarded prognosis. Further recommendations to follow. MMODL / IJN: [id number] /
[2021-09-22] MEDS: VANCOMYCIN 1,750 MG in SODIUM CHLORIDE 0.9% 500 ML 500 ML IVPB SCH (21:21)
[2021-09-22 21:26] LABS: Glucose,Whole Blood 162 mg/dL (75-99)
[2021-09-22] MEDS: ATORVASTATIN 40 MG TAB PO SCH (21:40)
[2021-09-22] MEDS: lisinopriL 5 MG TAB PO SCH (21:40)
[2021-09-22] MEDS: MONTELUKAST 10 MG TAB PO SCH (21:40)
[2021-09-22] MEDS: ASPIRIN 81 MG PO SCH (21:41)
--- NOTE | 2021-09-22 22:59 | PN ---
PROGRESS NOTE DATE OF SERVICE: 09/22/2021 REASON FOR FOLLOWUP: Pneumonia. INTERVAL HISTORY: The patient is afebrile. The patient is still complaining of left lower chest pain. Did have minimal cough, not bringing any sputum. No nausea, no vomiting. No abdominal pain or diarrhea. PHYSICAL EXAMINATION: Blood pressure 107/63 with a pulse of . Temperature 98.1. She is 98% on room air. General description is a middle-aged female up in the bed in no distress. Respiratory system: Unlabored breathing, decreased intensity of breath sounds. No wheeze. Heart S1, S2. Regular rate and rhythm. Abdomen soft, no tenderness. LABS: Hemoglobin is 10.9, white count 15.8, creatinine 0.78. DIAGNOSTIC IMPRESSION AND PLAN: Patient with left lower lobe pneumonia, likely community-acquired. Clinically not behaving as bacterial or fungal pneumonia. On cefepime and vancomycin. Will try to obtain a sputum sample to narrow down antibiotics. Continue supportive care. MMODL / IJN: [id number] /
[2021-09-23] MEDS: CEFEPIME 2 GM in SODIUM CHLORIDE 0.9% 100 ML IVPB SCH ×4 (00:50→23:33)
[2021-09-23] MEDS: HYDROcodone/APAP 5-325MG 1 EACH TAB PO PRN ×2 (04:39→10:51)
[2021-09-23 06:27] LABS: African American GFR (CKD) >90 (>60 ml/min/1.73 sqM); Non-African American GFR(CKD) >90 (>60 ml/min/1.73 sqM)
[2021-09-23] MEDS: IPRATROPIUM-ALBUTEROL 3 ML NEB INHALATION SCH ×4 (07:18→19:28)
[2021-09-23] MEDS: SYMBICORT 160-4.5 MCG INHALER INHALATION SCH ×2 (07:19→19:28)
[2021-09-23 07:20] LABS: Glucose,Whole Blood 130 mg/dL (75-99)
[2021-09-23] MEDS: INSULIN ASPART (NovoLOG) 100 UNIT/ML VIAL SQ SCH ×4 (07:41→20:59)
[2021-09-23] MEDS: NON FORMULARY DRUG (Empagliflozin [Jardiance] 25 MG Tablet) PO SCH (08:05)
[2021-09-23] MEDS: VANCOMYCIN 1,750 MG in SODIUM CHLORIDE 0.9% 500 ML 500 ML IVPB SCH ×2 (08:16→20:26)
[2021-09-23] MEDS: buPROPion XL 300 MG TAB.ER.24H PO SCH (08:16)
[2021-09-23] MEDS: PANTOPRAZOLE 40 MG TABLET PO SCH ×2 (08:16→17:19)
[2021-09-23] MEDS: LORATADINE 10 MG TAB PO SCH (08:16)
[2021-09-23] MEDS: PRASUGREL 10 MG TAB PO SCH (08:16)
[2021-09-23] MEDS: EZETIMIBE 10 MG TAB PO SCH (08:16)
--- NOTE | 2021-09-23 08:29 | XR ---
EXAMINATION TYPE: XR chest 2V DATE OF EXAM: 09/23/2021 COMPARISON: 09/22/2021 HISTORY: Chest pain TECHNIQUE: Frontal and lateral views of the chest are obtained. FINDINGS: Left perihilar infiltrate persists. Mild increased patchy density at the left lower lobe as well. No evidence for pneumothorax. No pleural effusion. The cardiac silhouette size is within normal limits. The osseous structures are grossly intact. IMPRESSION: 1. Left perihilar infiltrate persists. Mild increased patchy density at the left lower lobe as well.
[2021-09-23 12:50] LABS: Glucose,Whole Blood 113 mg/dL (75-99)
[2021-09-23] MEDS: methylPREDNISolone SOD SUCCI 125 MG/2 ML VIAL IV SCH ×3 (12:55→23:33)
--- NOTE | 2021-09-23 14:01 | P.PN ---
Subjective Progress Note Date: 09/23/21 This is a 46-year-old female, known history of allogenic bone marrow transplant back in 1998. 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 Her bone marrow transplant was performed at the [facility] and she has been following up with Dr. 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 Patient has been treated with multiple bronchodilators, and surprisingly she has been doing quite well. She was even tried on prednisone relatively high dose for her bronchiolitis obliterans syndrome patient initially improved but, later became worse. Patient was treated at one point in the hospital with high dose IV Solu- Medrol, and at one point Dr. patton entertained the possibility whether the patient is a candidate for plasmapheresis, IVIG G, rituxin, cyclosporine, Prograf, CellCept, and even raise the possibility of lung transplantation. Apparently the patient responded at the time to steroids, and she has not been on any oral systemic steroids since then. Patient was treated mostly with inhalers in the form of albuterol, Spiriva, Singulair, and has done fairly well. Supposedly her FEV1 is in the range of 45%. Her other medical problems include insulin-dependent diabetes mellitus type 2. Patient came into the ER today with 1 day history of cough, and shortness of breath. Patient was also complaining of discomfort in the left mid upper back. Pain was pleuritic in nature. Hence a CT angiogram of the chest was done, there was no evidence of pulmonary embolism but there was evidence of moderate size area of left lower lobe airspace consolidation consistent with pneumonia with air bronchogram noted. Patient was also noted to have leukocytosis with WBC count of 25.6, electrolytes were normal and renal profile was normal patient had negative testing for COVID- 19 infection and negative testing for influenza. However looking back on 07/25/21, patient did have positive PCR for COVID-19 but she has fully recovered since then. The patient is seen today 09/21/2021 in follow-up on the regular medical floor. She is currently sitting up in bed. Awake and alert in no acute distress. She is maintaining O2 saturations in the 90s on room air. She did have a temperature of 102.4 has since been afebrile. She had a negative Legionella. Negative mycoplasma. She is empirically on vancomycin and cefepime. She did have a posterior retrocardiac infiltrate in the left lung. I count 17.5. Hemoglobin 11.4. Sodium 134. Potassium 3.4. Creatinine 0.9. The patient is seen today 09/22/2021 in follow-up on the regular medical floor. She is currently sitting up in bed. Awake and alert in no acute distress. She continues with a dry nonproductive cough. She is maintaining O2 saturations in the 90s on room air. She's been afebrile. Hemodynamically stable. Blood cultures reveal no growth. White count 15.8. Hemoglobin 10.9. Platelet count 253. Lymphocytes 0.8. Sodium 134. Potassium 3.9. Creatinine 0.78. Glucose 126. She is continued on DuoNeb inhalations, Symbicort, Singulair. She is on antibiotics in the form of vancomycin and cefepime. Chest x-ray continues to show a left perihilar infiltrate. Patient is seen today 09/23/2021 followed on the regular medical floor. She is currently sitting up in bed. Awake and alert in no acute distress. Maintaining good O2 saturations in the 90s on room air. Unfortunately, she states she is feeling much better. Chest x-ray continues to show a left perihilar and lower lobe infiltrates. Cultures reveal no growth. Sputum culture pending. Creatinine 0.72. Blood glucose 1:30. She's continued on Symbicort, DuoNeb inhalations, Singulair. She's been initiated on IV Solu-Medrol. She is continued on vancomycin and cefepime. Objective - Vital Signs Vital signs: Vital Signs Temp 98.6 F 09/23/21 07:00 Pulse 81 09/23/21 11:12 Resp 18 09/23/21 07:00 BP 102/68 09/23/21 07:00 Pulse Ox 96 09/23/21 07:19 Intake & Output 09/22/21 09/23/21 09/23/21 18:59 06:59 18:59 Intake Total 780 500 Output Total 1200 800 Balance -420 -300 Intake: IV 300 Cefepime 1 gm In Sodium 50 Chloride 0.9% 50 ml @ 12. 5 mls/hr IVPB Q12HR [facility] Rx#:[id number] Vancomycin 1,500 mg In 250 Sodium Chloride 0.9% 250 ml @ 125 mls/hr IVPB Q12HR [facility] Rx#:[id number] Intake, IV Titration 500 Amount Vancomycin 1,750 mg In 500 Sodium Chloride 0.9% 500 ml 500 ml @ 167 mls/hr IVPB Q12H [facility] Rx#: [id number] Oral 480 Output: Urine 1200 800 Other: Voiding Method Toilet Toilet Toilet # Voids 1 2 3 - Exam GENERAL EXAM: Alert, pleasant 46-year-old female patient, sitting up in bed, in the bilateral wheeze on room air, comfortable in no apparent distress. HEAD: Normocephalic. EYES: Normal reaction of pupils, equal size. NOSE: Clear with pink turbinates. THROAT: No erythema or exudates. NECK: No masses, no JVD. CHEST: No chest wall deformity. LUNGS: Equal air entry with rhonchi in the left lung base. CVS: S1 and S2 normal with no audible murmur, regular rhythm. ABDOMEN: No hepatosplenomegaly, normal bowel sounds, no guarding or rigidity. SPINE: No scoliosis or deformity SKIN: No rashes CENTRAL NERVOUS SYSTEM: No focal deficits, tone is normal in all 4 extremities. EXTREMITIES: There is no peripheral edema. No clubbing, no cyanosis. Peripheral pulses are intact. - Labs CBC & Chem 7: 09/22/21 07:11 09/23/21 05:27 Labs: Abnormal Lab Results - Last 24 Hours (Table) 09/22/21 09/22/21 09/22/21 Range/Units 07:11 16:51 21:25 POC Glucose (mg/dL) 173 H 162 H (75-99) mg/dL Hemoglobin A1c 8.2 H (4.0-6.0) % Urine Protein (Negative) Urine Glucose (UA) (Negative) Urine Ketones (Negative) 09/22/21 09/23/21 09/23/21 Range/Units Unknown 06:55 12:45 POC Glucose (mg/dL) 130 H 113 H (75-99) mg/dL Hemoglobin A1c (4.0-6.0) % Urine Protein Trace H (Negative) Urine Glucose (UA) 4+ H (Negative) Urine Ketones 2+ H (Negative) Microbiology - Last 24 Hours (Table) 09/20/21 15:00 Blood Culture - Preliminary Blood No Growth after 48 hours 09/20/21 15:15 Blood Culture - Preliminary Blood No Growth after 48 hours Assessment and Plan Assessment: 1 Acute community-acquired pneumonia of the left lower lobe area currently on vancomycin and cefepime, remains stable and on room air 2 Status post allogeneic bone marrow transplant in 1998 for acute myelogenous leukemia 3 History of COVID-19 infection, resolved 4 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 Follow-up pro-calcitonin in a.m. We will continue to follow I, the cosigning physician, performed a history & physical examination of the patient. Lungs sounds rhonchi in the left lung base, end expiratory wheeze bilaterally. Maintaining good O2 saturations in the 90s on room air. I discussed the assessment and plan of care with my nurse practitioner, Fani Pacheco. I attest to the above note as dictated by her.
[2021-09-23] MEDS: HYDROcodone/APAP 7.5-325MG 1 EACH TAB PO PRN ×2 (15:28→20:26)
[2021-09-23 16:53] LABS: Glucose,Whole Blood 241 mg/dL (75-99)
--- NOTE | 2021-09-23 17:57 | PN ---
PROGRESS NOTE DATE OF SERVICE: 09/23/2021 This 46-year-old woman was admitted with significant pneumonia on the left side is immunocompromised. Patient on broad spectrum IV antibiotics. The most recent chest x- ray done today which was reviewed personally by me showed some haziness on the left side. No chest pain. No palpitations. No fever. Multiple consultants following the patient closely. Patient still has shortness of breath and some expectoration also. Left perihilar infiltrate persistent was noted. EXAM: Alert and oriented times three. Pulse is 102. Blood pressure is 180/70, respirations 18, temperature 98.3, pulse ox 91% on room air. HEENT: Conjunctivae normal. Neck: No JVD. Cardiovascular: S1, S2. Respirations: Breath sounds diminished in the bases. A few scattered rhonchi and crackles. Abdomen: Soft, nontender. Legs: No edema. No swelling. Nervous system: No focal deficits. LAB STUDIES: WBC 15.8, hemoglobin 10.9, sodium 134. Other labs are noted. Mycoplasma is negative. Legionella is also negative. Covid 19 was negative twice. The urine was negative. ASSESSMENT: 1. Acute left lower lobe pneumonia possibly gram-negative with early sepsis on broad- spectrum IV antibiotics including vancomycin with broad-spectrum coverage in an immunosuppressed individual present on admission. 2. History of recent Covid 19 infection. 3. Diabetes type 2 with hyperglycemia uncontrolled. 4. Decreased CO2. 5. Hyponatremia. 6. Elevated WBC. 7. Hyperlipidemia. 8. History of myocardial infarction. 9. Acute myelocytic leukemia with chemo. 10.History of hypokalemia and hypomagnesemia. 11.History of chronic vtuun-jxklfu-gomq reaction. 12.History of BOOP. 13.History of adenoidectomy. 14.History of cholecystectomy. 15.History of coronary artery disease/stent. 16.Immunosuppressed. 17.History of 1998 bone marrow transplant. 18.History of depression. 19.FULL CODE. ASSESSMENT: This 46-year-old woman with past medical history of multiple medical problems, we will monitor the patient closely, continue the current medications, management and symptomatic treatment. Continue the antibiotics and continue bronchodilators. I would also recommend IV steroids and monitor the blood glucose closely. Otherwise, closely follow with multiple consultants. Prognosis guarded. Further recommendations to follow. Follow the cultures. MMODL / IJN: [id number] / LETAD
[2021-09-23] MEDS: ATORVASTATIN 40 MG TAB PO SCH (20:27)
[2021-09-23] MEDS: lisinopriL 5 MG TAB PO SCH (20:27)
[2021-09-23] MEDS: ASPIRIN 81 MG PO SCH (20:27)
[2021-09-23] MEDS: MONTELUKAST 10 MG TAB PO SCH (20:27)
[2021-09-23 20:48] LABS: Glucose,Whole Blood 277 mg/dL (75-99)
--- NOTE | 2021-09-24 00:39 | PN ---
PROGRESS NOTE DATE OF SERVICE: 09/23/2021 REASON FOR FOLLOWUP: Pneumonia. INTERVAL HISTORY: The patient is afebrile. She is complaining of pain to the left lower chest area. The patient denies having any cough or sputum production. No nausea, no vomiting. No abdominal pain no diarrhea. PHYSICAL EXAMINATION: Blood pressure 120/73 with a pulse of 96, temperature 98.2. She is 92% on room air. General description is a middle-aged female lying in bed in no distress. Respiratory system: Unlabored breathing, decreased intensity of breath sounds. No wheeze. Heart S1, S2. Regular rate and rhythm. Abdomen soft, no tenderness. LAB: Creatinine 0.72. Blood culture negative. Sputum not obtained. DIAGNOSTIC IMPRESSION AND PLAN: Patient admitted to the hospital with left lower chest pain and fever with evidence of left lower lobe pneumonia. The patient currently responding to cefepime and vanco to continue. We will try to obtain a sputum to narrow down antibiotics and monitor clinical course closely. MMODL / IJN: [id number] /
[2021-09-24] MEDS: methylPREDNISolone SOD SUCCI 125 MG/2 ML VIAL IV SCH ×2 (06:08→12:39)
[2021-09-24] MEDS ORDERED: VANCOMYCIN TROUGH DUE 1 EACH MISC MISCELLANE ONE (07:00)
[2021-09-24 07:25] LABS: African American GFR (CKD) >90 (>60 ml/min/1.73 sqM); Non-African American GFR(CKD) >90 (>60 ml/min/1.73 sqM)
--- NOTE | 2021-09-24 07:28 | XR ---
EXAMINATION TYPE: XR chest 1V portable DATE OF EXAM: 09/24/2021 7:17 AM COMPARISON:Chest radiograph from one day prior. CT chest 09/20/2021 CLINICAL INDICATION:Female, 46 years old with history of LLL pneumonia; TECHNIQUE: Frontal view of the chest. FINDINGS: Lungs/Pleura: Airspace consolidation within the left lower lobe is less well appreciated given its lo cation behind the heart. No evidence of pneumothorax or pleural effusion. Pulmonary vascularity: Unremarkable. Heart/mediastinum: Cardiomediastinal silhouette is unremarkable. Musculoskeletal: No acute osseous pathology. IMPRESSION: Persistent retrocardiac airspace opacities as seen on prior CT.
[2021-09-24 07:52] LABS: Glucose,Whole Blood 247 mg/dL (75-99)
[2021-09-24] MEDS: PANTOPRAZOLE 40 MG TABLET PO SCH ×2 (08:18→18:27)
[2021-09-24] MEDS: buPROPion XL 300 MG TAB.ER.24H PO SCH (08:18)
[2021-09-24] MEDS: LORATADINE 10 MG TAB PO SCH (08:18)
[2021-09-24] MEDS: INSULIN ASPART (NovoLOG) 100 UNIT/ML VIAL SQ SCH ×4 (08:18→21:17)
[2021-09-24] MEDS: NON FORMULARY DRUG (Empagliflozin [Jardiance] 25 MG Tablet) PO SCH (08:19)
[2021-09-24] MEDS: CEFEPIME 2 GM in SODIUM CHLORIDE 0.9% 100 ML IVPB SCH ×3 (08:19→23:50)
[2021-09-24] MEDS: PRASUGREL 10 MG TAB PO SCH (08:19)
[2021-09-24] MEDS: EZETIMIBE 10 MG TAB PO SCH (08:20)
[2021-09-24] MEDS: HYDROcodone/APAP 7.5-325MG 1 EACH TAB PO PRN ×3 (08:29→21:15)
[2021-09-24] MEDS: VANCOMYCIN 1,750 MG in SODIUM CHLORIDE 0.9% 500 ML 500 ML IVPB SCH ×2 (08:42→22:33)
[2021-09-24] MEDS: IPRATROPIUM-ALBUTEROL 3 ML NEB INHALATION SCH ×4 (08:48→20:29)
[2021-09-24] MEDS: SYMBICORT 160-4.5 MCG INHALER INHALATION SCH ×2 (08:48→20:29)
[2021-09-24 12:33] LABS: Glucose,Whole Blood 313 mg/dL (75-99)
--- NOTE | 2021-09-24 12:49 | P.PN ---
Subjective Progress Note Date: 09/24/21 On today's evaluation of 09/24/2021, the patient is feeling better. Pleurisy is subsided. Chest x-ray still showing some limited consolidation in the left lower lobe. The patient remains on room air oxygen. The patient remains on broad-spectrum antibiotics. Antibiotics have been modified to include a combination of cefepime and vancomycin. Note that the patient's COVID 19 testing is been negative. Serum IgE level was 889 which is essentially within normal limits, the general urine screen was negative and the patient's Pronestyl level was at 3.09 initially and currently down to 1.5. As such, the patient is clinically improving. The cultures of been negative thus far. Objective - Vital Signs Vital signs: Vital Signs Temp 97.4 F L 09/24/21 08:00 Pulse 80 09/24/21 12:32 Resp 17 09/24/21 08:00 BP 121/75 09/24/21 08:00 Pulse Ox 96 09/24/21 08:50 Intake & Output 09/23/21 09/24/21 09/24/21 18:59 06:59 18:59 Intake Total 240 1000 591 Balance 240 1000 591 Intake: Oral 240 1000 591 Other: Voiding Method Toilet Toilet Toilet # Voids 1 2 - Exam GENERAL EXAM: Alert, pleasant 46-year-old female patient, sitting up in bed, in the bilateral wheeze on room air, comfortable in no apparent distress. HEAD: Normocephalic. EYES: Normal reaction of pupils, equal size. NOSE: Clear with pink turbinates. THROAT: No erythema or exudates. NECK: No masses, no JVD. CHEST: No chest wall deformity. LUNGS: Equal air entry with rhonchi in the left lung base. CVS: S1 and S2 normal with no audible murmur, regular rhythm. ABDOMEN: No hepatosplenomegaly, normal bowel sounds, no guarding or rigidity. SPINE: No scoliosis or deformity SKIN: No rashes CENTRAL NERVOUS SYSTEM: No focal deficits, tone is normal in all 4 extremities. EXTREMITIES: There is no peripheral edema. No clubbing, no cyanosis. Peripheral pulses are intact. - Labs CBC & Chem 7: 09/22/21 07:11 09/24/21 06:27 Labs: Abnormal Lab Results - Last 24 Hours (Table) 09/23/21 09/23/21 09/23/21 Range/Units 05:27 12:45 16:46 POC Glucose (mg/dL) 113 H 241 H (75-99) mg/dL Procalcitonin 1.50 H (0.02-0.09) ng/mL 09/23/21 09/24/21 09/24/21 Range/Units 20:29 07:50 12:32 POC Glucose (mg/dL) 277 H 247 H 313 H (75-99) mg/dL Procalcitonin (0.02-0.09) ng/mL Microbiology - Last 24 Hours (Table) 09/20/21 15:15 Blood Culture - Preliminary Blood No Growth after 72 hours 09/20/21 15:00 Blood Culture - Preliminary Blood No Growth after 72 hours Assessment and Plan Plan: 1 Acute community-acquired pneumonia of the left lower lobe area currently on vancomycin and cefepime, remains stable and on room air 2 Status post allogeneic bone marrow transplant in 1998 for acute myelogenous le ukemia 3 History of COVID-19 infection, resolved 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
[2021-09-24 17:28] LABS: Glucose,Whole Blood 379 mg/dL (75-99)
[2021-09-24] MEDS: INSULIN DETEMIR (LEVEMIR) 100 UNIT/ML SYR SQ SCH ×2 (18:21→21:17)
--- NOTE | 2021-09-24 18:37 | PN ---
PROGRESS NOTE DATE OF SERVICE: 09/24/2021 This 46-year-old woman was admitted with acute left lower lobe pneumonia, possibly gram negative, immunosuppressed individual, is being closely monitored. No chest pain. No palpitation. After IV steroids patient feeling better. PHYSICAL EXAMINATION: Alert and oriented x3. Pulse 96, blood pressure 101/71, respiration 17, temperature 97.6, pulse ox 97% on room air. HEENT: Conjunctivae normal. Oral mucosa moist. NECK: No jugular venous distention. No lymph node enlargement. CARDIOVASCULAR: S1, S2, muffled. No S3, no S4, RESPIRATORY: Diminished breath sounds at the bases. A few scattered rhonchi. ABDOMEN: Soft, nontender. LEGS: No edema, no swelling. NERVOUS SYSTEM: No focal deficits. LABS: Accu-Cheks 313. WBC 15.8. ASSESSMENT: 1. Acute left lower pneumonia possibly gram-negative with early sepsis on broad- spectrum IV antibiotics including vancomycin and broad-spectrum coverage with immunosuppressed individual, present on admission. 2. History of recent COVID-19 infection. 3. Diabetes mellitus, type 2 with hyperglycemia, uncontrolled. 4. Decreased CO2. 5. Hyponatremia. 6. Elevated WBC. 7. Hyperlipidemia. 8. History of myocardial infarction. 9. Acute myelocytic leukemia with chemo history. 10.History of hypokalemia and hypomagnesemia. 11.History of chronic sxyhl-rkawqq-jrls reaction. 12.History of BOOP. 13.History of adenoidectomy. 14.History of cholecystectomy. 15.History of CAD/stent. 16.Immunosuppressed. 17.History of 1998 bone marrow transplantation. 18.History of depression. 19.FULL CODE. RECOMMENDATIONS AND DISCUSSION: Recommend to continue current management, continue symptomatic treatment. Otherwise, reduce the dose of steroids. Initiate a small dose of insulin. Guarded prognosis. Further recommendations to follow. MMODL / IJN: [id number] /
[2021-09-24 21:09] LABS: Glucose,Whole Blood 353 mg/dL (75-99)
[2021-09-24] MEDS: ASPIRIN 81 MG PO SCH (21:17)
[2021-09-24] MEDS: ATORVASTATIN 40 MG TAB PO SCH (21:17)
[2021-09-24] MEDS: MONTELUKAST 10 MG TAB PO SCH (21:26)
[2021-09-24] MEDS: lisinopriL 5 MG TAB PO SCH (21:26)
--- NOTE | 2021-09-24 21:40 | PN ---
PROGRESS NOTE DATE OF SERVICE: 09/24/2021 REASON FOR FOLLOWUP: Pneumonia. INTERVAL HISTORY: The patient is afebrile. The patient is breathing more comfortably. The patient's left-sided chest pain has decreased in intensity. The patient denies having any shortness of breath or cough. No abdominal pain or diarrhea. PHYSICAL EXAMINATION: Blood pressure 111/71 with a pulse of 96, temperature 97.6. She is 97% on room air. General description is a middle-aged female up in the chair in no distress. Respiratory system: Unlabored breathing, clear to auscultation anteriorly. Heart S1, S2. Regular rate and rhythm. Abdomen soft, no tenderness. Extremities: No edema of the feet. LABS: Blood culture has been negative. DIAGNOSTIC IMPRESSION AND PLAN: Patient with left lower lobe pneumonia, high clinical suspicion of possibly community- acquired. Clinically not behaving as a resistant gram-positive or gram-negative pathogen. Vancomycin will be discontinued and monitor clinical course closely. MMODL / IJN: [id number] /
[2021-09-24] MEDS: methylPREDNISolone SOD SUCCI 40 MG/ML 1 ML VIAL IV SCH (23:49)
[2021-09-25 07:20] LABS: Glucose,Whole Blood 270 mg/dL (75-99)
[2021-09-25] MEDS: IPRATROPIUM-ALBUTEROL 3 ML NEB INHALATION SCH ×4 (07:31→19:38)
[2021-09-25] MEDS: SYMBICORT 160-4.5 MCG INHALER INHALATION SCH ×2 (07:31→19:39)
[2021-09-25] MEDS: INSULIN DETEMIR (LEVEMIR) 100 UNIT/ML SYR SQ SCH ×2 (08:19→21:43)
[2021-09-25] MEDS: methylPREDNISolone SOD SUCCI 40 MG/ML 1 ML VIAL IV SCH (08:19)
[2021-09-25] MEDS: INSULIN ASPART (NovoLOG) 100 UNIT/ML VIAL SQ SCH ×4 (08:19→21:43)
[2021-09-25] MEDS: buPROPion XL 300 MG TAB.ER.24H PO SCH (08:20)
[2021-09-25] MEDS: CEFEPIME 2 GM in SODIUM CHLORIDE 0.9% 100 ML IVPB SCH ×3 (08:20→23:49)
[2021-09-25] MEDS: LORATADINE 10 MG TAB PO SCH (08:20)
[2021-09-25] MEDS: EZETIMIBE 10 MG TAB PO SCH (08:20)
[2021-09-25] MEDS: PANTOPRAZOLE 40 MG TABLET PO SCH ×2 (08:20→17:56)
[2021-09-25] MEDS: NON FORMULARY DRUG (Empagliflozin [Jardiance] 25 MG Tablet) PO SCH (08:21)
[2021-09-25] MEDS: PRASUGREL 10 MG TAB PO SCH (08:21)
[2021-09-25] MEDS: HYDROcodone/APAP 7.5-325MG 1 EACH TAB PO PRN ×3 (08:29→21:42)
[2021-09-25 10:36] LABS: Basophils # (A) 0.04 X 10*3/uL (0.00-0.10); Basophils % (A) 0.2 %; Eosinophils # (A) 0 X 10*3/uL (0.04-0.35); Eosinophils % (A) 0 %; HCT 32.9 % (37.2-46.3); HGB 10.6 g/dL (12.0-15.0); Lymphocytes # (A) 0.68 X 10*3/uL (0.90-5.00); Lymphocytes % (A) 4.1 %; MCHC 32.2 g/dL (32.0-37.0); MCV 89.9 fL (80.0-97.0); Mean Platelet Volume 9.7 fL (9.5-12.2); Monocytes # (A) 0.93 X 10*3/uL (0.20-1.00); Monocytes % (A) 5.6 %; Neutrophils # (A) 14.16 X 10*3/uL (1.80-7.70); Neutrophils % (A) 85.8 %; Platelet Count 294 X 10*3/uL (140-440); RBC 3.66 X 10*6/uL (4.10-5.20); RDW 13.8 % (11.5-14.5); WBC 16.52 X 10*3/uL (4.50-10.00)
[2021-09-25 11:37] LABS: ALT 47 U/L (8-44); AST 17 U/L (13-35); African American GFR (CKD) 121.3 (60.0-200.0); Albumin 3.5 g/dL (3.8-4.9); Alkaline Phosphatase 106 U/L (41-126); BUN/Creat Ratio 37.71 Ratio (12.00-20.00); Blood Urea Nitrogen 26.4 mg/dL (9.0-27.0); Calcium 9.4 mg/dL (8.7-10.3); Carbon Dioxide 16.6 mmol/L (20.0-27.5); Chloride 105 mmol/L (96-109); Globulin 2.7 g/dL (1.6-3.3); Glucose 278 mg/dL (70-110); Non-African American GFR(CKD) 104.6 (60.0-200.0); Potassium 4.4 mmol/L (3.5-5.5); Sodium 136 mmol/L (135-145); Total Bilirubin <0.20 mg/dL (0.30-1.20); Total Protein 6.2 g/dL (6.2-8.2)
[2021-09-25 12:04] LABS: Glucose,Whole Blood 325 mg/dL (75-99)
--- NOTE | 2021-09-25 12:15 | P.PN ---
Subjective Progress Note Date: 09/25/21 This is a 46-year-old female, known history of allogenic bone marrow transplant back in 1998. 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 Her bone marrow transplant was performed at the [facility] and she has been following up with Dr. 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 Patient has been treated with multiple bronchodilators, and surprisingly she has been doing quite well. She was even tried on prednisone relatively high dose for her bronchiolitis obliterans syndrome patient initially improved but, later became worse. Patient was treated at one point in the hospital with high dose IV Solu- Medrol, and at one point Dr. patton entertained the possibility whether the patient is a candidate for plasmapheresis, IVIG G, rituxin, cyclosporine, Prograf, CellCept, and even raise the possibility of lung transplantation. Apparently the patient responded at the time to steroids, and she has not been on any oral systemic steroids since then. Patient was treated mostly with inhalers in the form of albuterol, Spiriva, Singulair, and has done fairly well. Supposedly her FEV1 is in the range of 45%. Her other medical problems include insulin-dependent diabetes mellitus type 2. Patient came into the ER today with 1 day history of cough, and shortness of breath. Patient was also complaining of discomfort in the left mid upper back. Pain was pleuritic in nature. Hence a CT angiogram of the chest was done, there was no evidence of pulmonary embolism but there was evidence of moderate size area of left lower lobe airspace consolidation consistent with pneumonia with air bronchogram noted. Patient was also noted to have leukocytosis with WBC count of 25.6, electrolytes were normal and renal profile was normal patient had negative testing for COVID- 19 infection and negative testing for influenza. However looking back on 07/25/21, patient did have positive PCR for COVID-19 but she has fully recovered since then. The patient is seen today 09/21/2021 in follow-up on the regular medical floor. She is currently sitting up in bed. Awake and alert in no acute distress. She is maintaining O2 saturations in the 90s on room air. She did have a temperature of 102.4 has since been afebrile. She had a negative Legionella. Negative mycoplasma. She is empirically on vancomycin and cefepime. She did have a posterior retrocardiac infiltrate in the left lung. I count 17.5. Hemoglobin 11.4. Sodium 134. Potassium 3.4. Creatinine 0.9. The patient is seen today 09/22/2021 in follow-up on the regular medical floor. She is currently sitting up in bed. Awake and alert in no acute distress. She continues with a dry nonproductive cough. She is maintaining O2 saturations in the 90s on room air. She's been afebrile. Hemodynamically stable. Blood cultures reveal no growth. White count 15.8. Hemoglobin 10.9. Platelet count 253. Lymphocytes 0.8. Sodium 134. Potassium 3.9. Creatinine 0.78. Glucose 126. She is continued on DuoNeb inhalations, Symbicort, Singulair. She is on antibiotics in the form of vancomycin and cefepime. Chest x-ray continues to show a left perihilar infiltrate. Patient is seen today 09/23/2021 followed on the regular medical floor. She is currently sitting up in bed. Awake and alert in no acute distress. Maintaining good O2 saturations in the 90s on room air. Unfortunately, she states she is feeling much better. Chest x-ray continues to show a left perihilar and lower lobe infiltrates. Cultures reveal no growth. Sputum culture pending. Creatinine 0.72. Blood glucose 1:30. She's continued on Symbicort, DuoNeb inhalations, Singulair. She's been initiated on IV Solu-Medrol. She is continued on vancomycin and cefepime. The patient is seen today 09/25/2021 in follow-up on the regular medical floor. She is currently sitting up in a chair at the bedside. Awake and alert in no acute distress. She is feeling nearly back to her baseline. Still with a loose nonproductive cough. No fever or chills. Maintaining O2 saturation 90s on room air. She remains on cefepime. ID is on the case. She is continued on IV Solu-Medrol, Symbicort, DuoNeb inhalations. White count 16.5. Hemoglobin 10.6. Sodium 136. Potassium 4.4. Creatinine 0.7. Glucose 278. AST 17. ALT 47. Objective - Vital Signs Vital signs: Vital Signs Temp 97.7 F 09/25/21 08:00 Pulse 85 09/25/21 11:18 Resp 16 09/25/21 08:00 BP 111/74 09/25/21 08:00 Pulse Ox 96 09/25/21 08:00 Intake & Output 09/24/21 09/25/21 09/25/21 18:59 06:59 18:59 Intake Total 827 114 Balance 827 114 Intake: Oral 827 114 Other: Voiding Method Toilet Toilet # Voids 3 - Exam GENERAL EXAM: Alert, pleasant 46-year-old female patient, sitting up in a chair, on room air, comfortable in no apparent distress. HEAD: Normocephalic. EYES: Normal reaction of pupils, equal size. NOSE: Clear with pink turbinates. THROAT: No erythema or exudates. NECK: No masses, no JVD. CHEST: No chest wall deformity. LUNGS: Equal air entry with rhonchi in the left lung base. CVS: S1 and S2 normal with no audible murmur, regular rhythm. ABDOMEN: No hepatosplenomegaly, normal bowel sounds, no guarding or rigidity. SPINE: No scoliosis or deformity SKIN: No rashes CENTRAL NERVOUS SYSTEM: No focal deficits, tone is normal in all 4 extremities. EXTREMITIES: There is no peripheral edema. No clubbing, no cyanosis. Peripheral pulses are intact. - Labs CBC & Chem 7: 09/25/21 06:16 09/25/21 06:16 Labs: Abnormal Lab Results - Last 24 Hours (Table) 09/24/21 09/24/21 09/24/21 Range/Units 12:32 17:27 21:04 WBC (4.50-10.00) X 10*3/uL RBC (4.10-5.20) X 10*6/uL Hgb (12.0-15.0) g/dL Hct (37.2-46.3) % Immature Gran # (0.00-0.04) X 10*3/uL Neutrophils # (1.80-7.70) X 10*3/uL Lymphocytes # (0.90-5.00) X 10*3/uL Eosinophils # (0.04-0.35) X 10*3/uL Carbon Dioxide (20.0-27.5) mmol/L BUN/Creatinine Ratio (12.00-20.00) Ratio Glucose (70-110) mg/dL POC Glucose (mg/dL) 313 H 379 H 353 H (75-99) mg/dL Total Bilirubin (0.30-1.20) mg/dL ALT (8-44) U/L Albumin (3.8-4.9) g/dL Albumin/Globulin Ratio (1.60-3.17) g/dL 09/25/21 09/25/21 09/25/21 Range/Units 06:16 06:16 07:18 WBC 16.52 H (4.50-10.00) X 10*3/uL RBC 3.66 L (4.10-5.20) X 10*6/uL Hgb 10.6 L (12.0-15.0) g/dL Hct 32.9 L (37.2-46.3) % Immature Gran # 0.71 H (0.00-0.04) X 10*3/uL Neutrophils # 14.16 H (1.80-7.70) X 10*3/uL Lymphocytes # 0.68 L (0.90-5.00) X 10*3/uL Eosinophils # 0 L (0.04-0.35) X 10*3/uL Carbon Dioxide 16.6 L (20.0-27.5) mmol/L BUN/Creatinine Ratio 37.71 H (12.00-20.00) Ratio Glucose 278 H (70-110) mg/dL POC Glucose (mg/dL) 270 H (75-99) mg/dL Total Bilirubin <0.20 L (0.30-1.20) mg/dL ALT 47 H (8-44) U/L Albumin 3.5 L (3.8-4.9) g/dL Albumin/Globulin Ratio 1.30 L (1.60-3.17) g/dL 09/25/21 Range/Units 12:03 WBC (4.50-10.00) X 10*3/uL RBC (4.10-5.20) X 10*6/uL Hgb (12.0-15.0) g/dL Hct (37.2-46.3) % Immature Gran # (0.00-0.04) X 10*3/uL Neutrophils # (1.80-7.70) X 10*3/uL Lymphocytes # (0.90-5.00) X 10*3/uL Eosinophils # (0.04-0.35) X 10*3/uL Carbon Dioxide (20.0-27.5) mmol/L BUN/Creatinine Ratio (12.00-20.00) Ratio Glucose (70-110) mg/dL POC Glucose (mg/dL) 325 H (75-99) mg/dL Total Bilirubin (0.30-1.20) mg/dL ALT (8-44) U/L Albumin (3.8-4.9) g/dL Albumin/Globulin Ratio (1.60-3.17) g/dL Microbiology - Last 24 Hours (Table) 09/20/21 15:15 Blood Culture - Preliminary Blood No Growth after 96 hours 09/20/21 15:00 Blood Culture - Preliminary Blood No Growth after 96 hours Assessment and Plan Assessment: 1 Acute community-acquired pneumonia of the left lower lobe area currently on cefepime, remains stable and on room air 2 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 Patton in the office in 1-2 weeks' I, the cosigning physician, performed a history & physical examination of the patient. Lungs sounds rhonchi in the left lung base. Maintaining good O2 saturations in the 90s on room air. I discussed the assessment and plan of care with my nurse practitioner, Fain Pacheco. I attest to the above note as dictated by her.
[2021-09-25] MEDS ORDERED: INSULIN DETEMIR (LEVEMIR) 100 UNIT/ML SYR SQ ONE (14:30)
--- NOTE | 2021-09-25 16:32 | PN ---
PROGRESS NOTE DATE OF SERVICE: 09/25/2021 This 46-year-old woman was admitted with acute lower lobe pneumonia, immunosuppressant, is being closely monitored. The patient was hypoxic earlier. Blood sugar is elevated and insulin also has been increased. No chest pain. No palpitations. No fever. PHYSICAL EXAMINATION: Alert and oriented x3. Pulse 84, blood pressure 111/74, respirations 16, temperature 97.7, pulse ox 97% on room air and 93% on room air. HEENT: Conjunctivae normal. Oral mucosa moist. NECK: No jugular venous distention. No lymph node enlargement. CARDIOVASCULAR: S1, S2, muffled. No S3, no S4, RESPIRATORY: Diminished breath sounds at the bases. A few scattered rhonchi heard in the left lower posteriorly, much improved. ABDOMEN: Soft, nontender. LEGS: No edema, no swelling. NERVOUS SYSTEM: No focal deficits. LABS: WBC 16.5, hemoglobin 8.6, and glucose 325. ASSESSMENT: 1. Acute left lower lobe pneumonia possibly gram-negative with early sepsis on broad- spectrum IV antibiotics including vancomycin and broad-spectrum coverage in immunosuppressant individual, present on admission. 2. History of recent Covid-19 infection. 3. Diabetes mellitus, type 2, hyperglycemia, uncontrolled secondary to steroids possibly. 4. Decreased CO2. 5. Hyponatremia. 6. Elevated WBC. 7. Hyperlipidemia. 8. History of myocardial infarction. 9. Acute myelocytic leukemia with chemo history. 10.History of hypokalemia with hypomagnesemia. 11.History of chronic iqitn-snzcdq-hiyd reaction. 12.History of BOOP. 13.History of adenoidectomy. 14.History of cholecystectomy. 15.History of CAD/stent. 16.Immunosuppressed. 17.History of 1999 bone marrow transplantation. 18.History of depression. 19.FULL CODE. RECOMMENDATIONS AND DISCUSSION: Recommend to continue current management, continue symptomatic treatment. Increase dose of insulin. The patient will require Lantus twice daily on discharge, dose will be fine-tuned subsequently. Otherwise, check for room air on pulse ox. The patient also will require nebulizer at home and we will continue to monitor. Discharge home in the next 24 hours. Closely follow with multiple consultants. Prognosis guarded because of multiple complex medical issues. Discussed with the patient who understands. MMODL / IJN: [id number] /
[2021-09-25 17:08] LABS: Glucose,Whole Blood 387 mg/dL (75-99)
[2021-09-25 21:12] LABS: Glucose,Whole Blood 336 mg/dL (75-99)
[2021-09-25] MEDS: ATORVASTATIN 40 MG TAB PO SCH (21:42)
[2021-09-25] MEDS: lisinopriL 5 MG TAB PO SCH (21:42)
[2021-09-25] MEDS: ASPIRIN 81 MG PO SCH (21:42)
[2021-09-25] MEDS: MONTELUKAST 10 MG TAB PO SCH (21:49)
--- NOTE | 2021-09-25 23:14 | PN ---
PROGRESS NOTE DATE OF SERVICE: 09/25/2021 REASON FOR FOLLOWUP: Pneumonia. INTERVAL HISTORY: The patient is afebrile. The patient is breathing comfortably. The patient denies having any chest pain or shortness of breath. She did have a cough, not bringing up sputum. No abdominal pain or diarrhea. PHYSICAL EXAMINATION: Blood pressure 113/74 with a pulse of 80, temperature 97.9. She is 98% on room air. General description is a middle-aged female up in the bed in no distress. Respiratory system: Unlabored breathing, decreased intensity of breath sounds. No wheeze. Heart S1, S2. Regular rate and rhythm. Abdomen soft, no tenderness. Extremities with no edema of the feet. LABS: Hemoglobin is 10.6, white count 16.52, creatinine 0.7. DIAGNOSTIC IMPRESSION AND PLAN: Patient with left lower lobe pneumonia, likely community-acquired. White count elevated, more likely because of steroid effect. This patient has had overall improvement on cefepime. Will transition to oral antibiotic on discharge. Continue supportive care. MMODL / IJN: [id number] /
[2021-09-26] MEDS: EZETIMIBE 10 MG TAB PO SCH (07:11)
[2021-09-26] MEDS: CEFEPIME 2 GM in SODIUM CHLORIDE 0.9% 100 ML IVPB SCH (07:11)
[2021-09-26] MEDS: HYDROcodone/APAP 7.5-325MG 1 EACH TAB PO PRN (07:11)
[2021-09-26] MEDS: PANTOPRAZOLE 40 MG TABLET PO SCH (07:12)
[2021-09-26] MEDS: PRASUGREL 10 MG TAB PO SCH (07:12)
[2021-09-26] MEDS: LORATADINE 10 MG TAB PO SCH (07:12)
[2021-09-26] MEDS: buPROPion XL 300 MG TAB.ER.24H PO SCH (07:12)
[2021-09-26] MEDS: INSULIN ASPART (NovoLOG) 100 UNIT/ML VIAL SQ SCH ×2 (07:12→11:54)
[2021-09-26] MEDS: INSULIN DETEMIR (LEVEMIR) 100 UNIT/ML SYR SQ SCH (07:12)
[2021-09-26] MEDS: NON FORMULARY DRUG (Empagliflozin [Jardiance] 25 MG Tablet) PO SCH (07:12)
[2021-09-26 07:19] LABS: Glucose,Whole Blood 153 mg/dL (75-99)
[2021-09-26] MEDS: SYMBICORT 160-4.5 MCG INHALER INHALATION SCH (07:19)
[2021-09-26] MEDS: IPRATROPIUM-ALBUTEROL 3 ML NEB INHALATION SCH ×2 (07:19→11:04)
[2021-09-26 07:50] VITALS: BP 94/60; RESP 18; TEMP 97.6
[2021-09-26] MEDS ORDERED: predniSONE 20 MG TAB PO SCH (09:00)
[2021-09-26 11:18] VITALS: PULSE 91
[2021-09-26 11:36] LABS: Glucose,Whole Blood 352 mg/dL (75-99)
[2021-09-26] MEDS ORDERED: IPRATROPIUM-ALBUTEROL 3 ML NEB INHALATION PRN (11:53)
[2021-09-26 12:12] LABS: African American GFR (CKD) >90 (>60 ml/min/1.73 sqM); Non-African American GFR(CKD) >90 (>60 ml/min/1.73 sqM)
--- NOTE | 2021-09-26 13:57 | PN ---
PROGRESS NOTE DATE OF SERVICE: 09/26/2021 REASON FOR FOLLOWUP: Pneumonia, likely community-acquired. INTERVAL HISTORY: The patient is afebrile. The patient is breathing comfortably. The patient denies having any chest pain or shortness of breath or cough. No abdominal pain or diarrhea. PHYSICAL EXAMINATION: Blood pressure 94/60 with a pulse of 75, temperature 97.6. She is 96% on room air. General description is a middle-aged female up in the bed in no distress. Respiratory system: Unlabored breathing, clear to auscultation anteriorly. Heart S1, S2. Regular rate and rhythm. Abdomen soft, no tenderness. LABS: No new labs have been obtained today. DIAGNOSTIC IMPRESSION AND PLAN: Patient with pneumonia, left lower lobe, possibly community-acquired. Cultures have been negative. No sputum was obtained. a short course of oral Ceftin and close outpatient followup. MMODL / IJN: [id number] /
--- NOTE | 2021-09-27 06:48 | DS ---
DISCHARGE SUMMARY DATE OF SERVICE: 09/26/2021 FINAL DIAGNOSES: 1. Acute left lower lobe pneumonia with possibly gram-negative with early sepsis on broad-spectrum IV antibiotics including vancomycin and broad-spectrum coverage in an immunosuppressed individual, present on admission. 2. History of recent Covid 19 infection. 3. Diabetes mellitus, type 2 with hyperglycemia uncontrolled secondary to steroids. 4. Decreased CO2. 5. Hyponatremia. 6. Elevated WBC. 7. Hyperlipidemia. 8. History of myocardial infarction. 9. Acute myelocytic leukemia with chemo history. 10.History of hypokalemia and hypomagnesemia. 11.History of chronic rcvsr-geodmf-iqga reaction. 12.History of BOOP. 13.History of adenoidectomy. 14.History of cholecystectomy. 15.History of coronary artery disease, stent. 16.Immunosuppressed. 17.History of 1998 bone marrow transplantation. 18.History of depression. 19.FULL CODE. DISCHARGE DISPOSITION: The patient will be discharged in stable condition with guarded prognosis. Total time taken 35 minutes. HISTORY OF PRESENT ILLNESS: This 46-year-old woman with a past medical history of multiple medical problems admitted with left lower pneumonia. The patient was treated with broad-spectrum IV antibiotics, steroids. Patient improved significantly and seen by multiple consultants during the hospitalization. Cultures are negative at this time. EXAM: Vitals stable. Cardiovascular S1, S2. Abdomen soft. Nervous system: No focal deficits. Blood sugars are between 150 and 300. DISCHARGE INSTRUCTIONS: 1. Diet is consistent carb. 2. Activity limited until follow up. 3. Follow up with Dr. Davis in 2-3 days. 4. CBC, BMP. 5. Follow up with Dr. Smith as recommended. MEDICATIONS: 1. Fexofenadine as before. 2. Ecotrin 81 mg daily. 3. Effient 10 mg daily. 4. Jardiance 25 mg p.o. daily. 5. Nitrostat p.r.n. 6. Omeprazole 40 mg. 7. Prinivil 5 mg q.h.s. 8. rosuvstatin 20 mg q.h.s. 9. Singulair 10 mg q.h.s. 10.Wellbutrin XR 300 mg. 11.Zetia 10 mg p.o. daily. 12.Ceftin 500 mg p.o. b.i.d. for 5 days. 13.DuoNeb q.i.d. and p.r.n. 14.Levemir 25 units subcu b.i.d. 15.Solu-Medrol Dosepak. 16.Symbicort 160/4.5 2 puffs b.i.d. 17.Tylenol p.r.n. Once again, patient discharged in stable condition with guarded prognosis. MMODL / IJN: [id number] / MTDD
== END 2021-09-26 13:19 | disposition home or self-care (01) | DRG 871 ==
LOC: EC 11:21 → 6NMEDSUR 14:32 → OBSVTOIN 09-21 10:49
PROVIDERS: ADMIT Hospitalist; ATTEND Hospitalist
DX: A41.50 Gram-negative sepsis, unspecified (principal); J15.6 Pneumonia due to other Gram-negative bacteria; J44.0 Chronic obstructive pulmonary disease with (acute) lower respiratory infection; C92.01 Acute myeloblastic leukemia, in remission; D89.811 Chronic graft-versus-host disease; E87.1 Hypo-osmolality and hyponatremia; T86.09 Other complications of bone marrow transplant; J42 Unspecified chronic bronchitis; E11.65 Type 2 diabetes mellitus with hyperglycemia; E78.5 Hyperlipidemia, unspecified; E87.6 Hypokalemia; I10 Essential (primary) hypertension; I25.10 Atherosclerotic heart disease of native coronary artery without angina pectoris; I25.2 Old myocardial infarction; K21.9 Gastro-esophageal reflux disease without esophagitis; F32.A Depression, unspecified; R09.02 Hypoxemia; T38.0X5A Adverse effect of glucocorticoids and synthetic analogues, initial encounter; Y83.0 Surgical operation with transplant of whole organ as the cause of abnormal reaction of the patient, or of later complication, without mention of misadventure at the time of the procedure; Z79.02 Long term (current) use of antithrombotics/antiplatelets; Z79.4 Long term (current) use of insulin; Z79.84 Long term (current) use of oral hypoglycemic drugs; Z79.899 Other long term (current) drug therapy; Z92.21 Personal history of antineoplastic chemotherapy; Z90.49 Acquired absence of other specified parts of digestive tract; Z95.5 Presence of coronary angioplasty implant and graft; Z86.16 Personal history of COVID-19; Z87.01 Personal history of pneumonia (recurrent); Z83.3 Family history of diabetes mellitus; Z82.49 Family history of ischemic heart disease and other diseases of the circulatory system; Z88.5 Allergy status to narcotic agent; Z88.2 Allergy status to sulfonamides
CPT/HCPCS: 36415; 71045; 71046; 71275; 80048; 80053; 80202; 81003; 82009; 82565; 82784; 83036; 83605; 83735; 84132; 84145; 84484; 85025; 85610; 85730; 86738; 87040; 87103; 87449; 87502; 87635; 93005; 94640; 94760; 96361; 96365; 99291

== ENCOUNTER → 2021-11-24 | Outpatient (CLI) | payer BC ==
--- NOTE | 2021-11-24 09:18 | XR ---
EXAMINATION TYPE: XR chest 2V DATE OF EXAM: 11/24/2021 COMPARISON: X-ray dated 10/10/2021 HISTORY: Pneumonia a month ago, pain with breathing TECHNIQUE: Frontal and lateral views of the chest are obtained. FINDINGS: Slightly hyper-translucent lungs which may suggest COPD, please correlate clinically. Grossly unremar kable lungs otherwise. No sizable pleural effusion or definite pneumothorax. No cardiomegaly. Mild degenerative changes of t he lower thoracic spine. IMPRESSION: No acute pulmonary abnormality identified.
== END | disposition home or self-care (01) ==
LOC: RADXRMAIN 08:43
PROVIDERS: ATTEND Nurse Practitioner Family
DX: R06.09 Other forms of dyspnea (principal)
CPT/HCPCS: 71046

== ENCOUNTER → 2022-07-04 | Outpatient (CLI) | payer BC ==
--- NOTE | 2022-07-04 09:05 | CT ---
EXAMINATION TYPE: CT chest high resolution wo con DATE OF EXAM: 07/04/2022 COMPARISON: 09/20/2021 HISTORY: 46-year-old female J68.4, Hx of COPD, pain in back since having Covid TECHNIQUE: High-resolution scanning of the chest utilizing 1 mm slice thickness and 1 cm gap without IV contrast per HRCT protocol. Both prone and supine imaging is performed. CT DLP: 177 mGycm Automated exposure control for dose reduction was used. FINDINGS: Heart is normal size without pericardial effusion. Three-vessel coronary artery calcifications are p resent and are a marker for coronary artery disease. Aorta normal caliber with bovine configuration to the aortic root. No thoracic lymphadenopathy by noncontrast HRCT technique. Mild to moderate diffuse bronchial wall thickening particularly in the upper lungs persists. Intersti tial change, subtle groundglass nodularity, as well as reticulonodular density especially in the uppe r lobes and anterior midlungs but also to a lesser extent within the anterior lower lobes persists. Mild biapical pleural parenchymal scarring. Areas of nodularity have limited assessment by HRCT techn ique but a few areas within the posterior right upper lung measuring up to 5 mm is unchanged. A 6 mm subpleural pulmonary nodule posteromedial left upper lung, axial image 10 may be slightly larg er compared to 4 mm, previously and should be reassessed at follow-up. Previous consolidation seen posteriorly in the left lower lobe has resolved. Visualized upper abdomen shows a moderate size hiatal hernia involving at least the third of the stom ach in the lower chest. Cholecystectomy clips. Bones: No osseous destructive process seen. IMPRESSION: 1. CHRONIC INTERSTITIAL CHANGES WITH RETICULONODULAR DENSITIES AND SUBTLE GROUNDGLASS NODULARITY WITH AN UPPER TO MIDLUNG PREDOMINANCE. OVERALL SIMILAR COMPARED TO 09/20/2021. CONSIDER SEQUELA OF PREVIO US ATYPICAL INFECTION OR GRANULOMATOUS DISEASE, SUBACUTE HYPERSENSITIVITY PNEUMONITIS, AND/OR RESPIRA TORY BRONCHIOLITIS. 2. BRONCHIAL WALL THICKENING COULD REFLECT ACUTE OR CHRONIC BRONCHITIS VERSUS ASTHMA. 3. LIMITED ASSESSMENT OF NODULES BY HRCT TECHNIQUE. A 6 MM SUBPLEURAL PULMONARY NODULE POSTERIOR LEFT UPPER LUNG MAY BE LARGER FROM 4 MM, PREVIOUSLY. REASSESS AT A 6-12 MONTH FOLLOW-UP. 4. REDEMONSTRATED MODERATE SIZED HIATAL HERNIA INVOLVING AT LEAST THE THIRD OF THE STOMACH.
== END | disposition home or self-care (01) ==
LOC: RADCTMAIN 07:47
PROVIDERS: ATTEND Internal Medicine Critical Care Medicine
DX: J68.4 Chronic respiratory conditions due to chemicals, gases, fumes and vapors (principal)
CPT/HCPCS: 71250

== ENCOUNTER 2022-08-29 12:38 | Day surgery (SDC) | payer BC ==
[~2022-08-29 12:38] MED LIST: ALBUTEROL NEB (CONC) 2.5 MG/0.5 ML INHALATION ONE; ATROPINE SULFATE 0.4 MG/ML 1 ML VIAL IM ONE; HYDROmorphone 0.5 MG/0.5 ML SYRINGE IVP PRN; LACTATED RINGERS 1,000 ML IV SCH; LIDOCAINE 2% (PF) 20 MG/ML 5 ML VIAL INHALATION ONE; LIDOCAINE VISCOUS 300 MG/15 ML CUP MUCOUS MEM ONE
[2022-08-29 13:36] LABS: Glucose,Whole Blood 82 mg/dL (70-110)
[2022-08-29] MEDS ORDERED: LIDOCAINE 2% INJ 20 MG/ML (2 ML VIAL) ONE (13:37)
[2022-08-29] MEDS ORDERED: ONDANSETRON 4 MG/2 ML VIAL ONE (13:37)
[2022-08-29] MEDS ORDERED: fentaNYL (PF) 50 MCG/ML 2 ML AMP ONE (13:37)
[2022-08-29] MEDS ORDERED: DEXAMETHASONE SOD PHOSPHATE 10 MG/ML 1 ML VIAL ONE (13:37)
[2022-08-29] MEDS ORDERED: PROPOFOL 10 MG/ML 20 ML VIAL IV ONE (13:37)
[2022-08-29] MEDS ORDERED: SUCCINYLCHOLINE CHLORIDE 200 MG/10 ML VIAL IV ONE (13:37)
[2022-08-29 14:23] VITALS: TEMP 96.9
[2022-08-29 14:36] VITALS: RESP 16
[2022-08-29 15:15] VITALS: BP 97/69; PULSE 82
--- NOTE | 2022-08-29 15:25 | XR ---
EXAMINATION TYPE: XR chest 1V portable DATE OF EXAM: 08/29/2022 Comparison: 11/24/[address] 07/04/2022 Clinical History: 47-year-old female Post right lung biopsies Findings: Heart normal size. Aorta and pulmonary vasculature are within normal limits. Mild interstitial promin ence in the upper lungs. No pneumothorax, pleural effusion, or consolidation seen. Some rounded retrocardiac density noted. Impression: Chronic changes. No moderate-sized hilar hernia. No definite acute process. No appreciable pneumothor ax.
--- NOTE | 2022-08-29 15:26 | FL ---
EXAMINATION TYPE: FL bronchoscopy DATE OF EXAM: 08/29/2022 FLUOROSCOPY Fluoroscopy time of 1 minute 10 seconds was used during right lower lobe biopsies. 2 image/s documen t/s the procedure.
[2022-08-29 19:17] LABS: Appearance,BF Cloudy
--- NOTE | 2022-08-29 20:14 | OP ---
OPERATIVE REPORT This is a Pulmonary/Critical Care procedure note. PROCEDURES PERFORMED: Bronchoscopy, airway examination, therapeutic lavage, BAL right middle lobe, brushes right lower lobe and multiple transbronchial biopsies of right lower lobe. PREOPERATIVE DIAGNOSIS: Ivkdo-dwiqaj-tjda disease and bronchiolitis obliterans syndrome. POSTOPERATIVE DIAGNOSIS: Ohmqz-coeosh-rudu disease and bronchiolitis obliterans syndrome. OPERATORS: Dr. Smith and Dr. Pacheco. DESCRIPTION OF PROCEDURE: There was informed consent and universal timeout. Anesthesia, provided general anesthesia. After the patient was under the effects of general anesthesia, the bronchoscope was inserted through the ET tube. We did a thorough inspection of the right and left lung. All lobes and segments were found to be normal. No mass or lesion and minimal secretions. Next under fluoroscopic guidance we did brushes to the RLL. Next, multiple transbronchial biopsies were done in the RLL. At least 8 pieces were obtained. Finally, we did a BAL in the RML. The patient tolerated the procedure well. There was no significant bleeding. There was no pneumothorax. The patient was recovered by anesthesia. I spoke to the patients significant other after the procedure. DICTATION ENDS HERE MMODL / IJN: [id number] / MTDD
== END 2022-08-29 15:40 | disposition home or self-care (01) ==
LOC: ORWHC2ENDO 12:38
PROVIDERS: ATTEND Internal Medicine Critical Care Medicine
DX: R91.8 Other nonspecific abnormal finding of lung field (principal); D89.813 Graft-versus-host disease, unspecified; J20.9 Acute bronchitis, unspecified
CPT/HCPCS: 87798 ×3; 87496; 87498; 87529; 88104; 88108; 88305; 89050; 87252; 87502; 87634; 87070; 87205; 87116; 87102; 87206; 71045; 31628; 31623; 31624; J0330; J0461; J1100; J2405; J3010; J2704; J2001

== ENCOUNTER → 2022-09-08 | Outpatient (CLI) | payer BC ==
--- NOTE | 2022-09-10 14:08 | PE ---
EXAMINATION TYPE: PET CT fusion skull to thigh DATE OF EXAM: 09/08/2022 CLINICAL INDICATION:Female, 47 years old with history of SPN R91.8; TECHNIQUE: Following the intravenous administration of 11.5 mCi of F-18 FDG, whole body images are performed from the skull base to the midthigh. Images are reviewed on the computer in the coronal, a xial, and sagittal planes. Reconstructed rotating images are created on independent workstation and reviewed on the computer. A non-contrast CT is performed in conjunction with the PET scan. Glucose level 102 mg/dL COMPARISON: CT 07/04/2022, PET/CT None, FINDINGS: Mediastinal SUV mean is 1.1. Hepatic parenchyma SUV mean is 1.8. SKULL BASE AND NECK: No suspicious radiotracer activity. CHEST, MEDIASTINUM, AND HILAR REGION: No suspicious radiotracer activity. Right upper lobe 4 mm pulmo nary nodule, right middle lobe groundglass opacity measuring 9 mm. ABDOMEN AND PELVIS: No suspicious radiotracer activity. OSSEOUS STRUCTURES: No suspicious radiotracer activity. OTHER CT: Atherosclerosis of the arterial vasculature including the carotid bifurcations and coronary arteries. There is a large hiatal hernia. The latter surgically absent. Moderate stool burden throug hout the colon. IMPRESSION: No suspicious radiotracer activity. Should be noted that solid pulmonary nodules less than 1 cm are u nder the sensitivity for PET/CT.
== END | disposition home or self-care (01) ==
LOC: RADPETMAIN 16:09
PROVIDERS: ATTEND Internal Medicine Critical Care Medicine
DX: R91.8 Other nonspecific abnormal finding of lung field (principal)
CPT/HCPCS: 78815; A9552

== ENCOUNTER → 2022-09-13 | Outpatient (CLI) | payer BC ==
--- NOTE | 2022-09-13 16:16 | FL ---
EXAMINATION TYPE: FL barium swallow DATE OF EXAM: 09/13/2022 COMPARISON: None HISTORY: Reflux TECHNIQUE: A double air contrast esophagram study is performed. FINDINGS: Explained esophagus dilates to normal caliber is normal contour to the gastroesophageal sean ction. Gastroesophageal junction opens to normal caliber. Presbyesophagus is present with multiple te rtiary contractions within the distal esophagus. A sliding type hiatal hernia is evident during this examination. Gastroesophageal reflux to the level of the clavicles also is evident. Fluoroscopy time: 20 seconds Images: 142 IMPRESSIONS: 1. Presbyesophagus. 2. Sliding-type hiatal hernia. 3. Gastroesophageal reflux to the clavicles
== END | disposition home or self-care (01) ==
LOC: RADUSWWP 10:00
PROVIDERS: ATTEND Surgery Plastic and Reconstructive Surgery
DX: K21.00 Gastro-esophageal reflux disease with esophagitis, without bleeding (principal); K22.89 Other specified disease of esophagus; K44.9 Diaphragmatic hernia without obstruction or gangrene
CPT/HCPCS: 74220

== ENCOUNTER → 2023-03-08 | Outpatient (CLI) | payer BC ==
--- NOTE | 2023-03-09 17:40 | MM ---
Reason for Exam: Screening (asymptomatic). Last mammogram was performed 2 year(s) and 1 month(s) ago. Patient History: Menarche at age 10. Patient has no children. Postmenopausal. Maternal grandmother had breast cancer, age 73. Risk Values: Allegra 5 year model risk: 1.0%. NCI Lifetime model risk: 11.4%. Prior Study Comparison: 02/11/2019 Bilateral Screening Mammogram, [facility]. 02/01/2021 Bilateral Screening Mammogram, [facility]. Tissue Density: There are scattered fibroglandular densities. Findings: Analyzed By CAD. Pattern appears symmetrical and stable. Benign calcifications left breast. Couple benign calcifications are present. Left breast, there is a density within the anterior left breast in craniocaudal projection measuring 0.6 cm 3 cm nipple. Additional workup with compression view is recommended. This appears to been interval change. Right breast, No suspicious groups of microcalcifications, spiculated or lobular masses, architectural distortion or other secondary signs of malignancy are mammographically apparent. Overall Assessment: Incomplete: need additional imaging evaluation, BI-RAD 0 Management: Diagnostic Mammogram of the left breast. A negative mammogram report should not preclude additional follow up of suspicious palpable abnormalities. Patient should continue monthly self breast exam. A clinical breast exam by your physician is recommended on an annual basis and results should be correlated with mammographic findings. Electronically signed and approved by: Jonas Mujica D.O. Radiologis
== END | disposition home or self-care (01) ==
LOC: RADMAMWWP 07:08
PROVIDERS: ATTEND Family Medicine
DX: Z12.31 Encounter for screening mammogram for malignant neoplasm of breast (principal); Z78.0 Asymptomatic menopausal state; Z80.3 Family history of malignant neoplasm of breast
CPT/HCPCS: 77063; 77067

== ENCOUNTER → 2023-03-13 | Outpatient (CLI) | payer BC ==
--- NOTE | 2023-03-13 12:12 | USB ---
Reason for Exam: Additional evaluation requested from abnormal screening. Patient History: Menarche at age 10. Patient has no children. Postmenopausal. Maternal grandmother had breast cancer, age 73. Risk Values: Allegra 5 year model risk: 1.0%. NCI Lifetime model risk: 11.4%. Prior Study Comparison: 02/11/2019 Bilateral Screening Mammogram, [facility]. 02/01/2021 Bilateral Screening Mammogram, [facility]. 03/08/2023 Bilateral MG 3D screening mammo w/cad, [facility]. Findings: The upper section of the breast of the left breast, the periareolar of the left breast and the retroareolar of the left breast were scanned. Targeted ultrasound left breast subareolar and periareolar regions. Tiny shadowing oil cyst calcification noted at 12:00, 3 cm from the nipple. Just adjacent, there is a too small to characterize 3 mm hypoechoic area, likely debris-filled cyst. No other solid or cystic lesion. Overall Assessment: Probably benign, BI-RAD 3 Management: Diagnostic Mammogram of the left breast in 6 months. A clinical breast exam by your physician is recommended on an annual basis and results should be correlated with mammographic findings. This exam should not preclude additional follow-up of suspicious palpable abnormalities. Results were given to the patient verbally at the time of exam. Electronically signed and approved by: Yamil Leon M.D. Radiologist
--- NOTE | 2023-03-13 12:14 | MM ---
Reason for Exam: Additional evaluation requested from abnormal screening. Last screening mammogram was performed less than 1 month ago. Patient History: Menarche at age 10. Patient has no children. Postmenopausal. Maternal grandmother had breast cancer, age 73. Risk Values: Allegra 5 year model risk: 1.0%. NCI Lifetime model risk: 11.4%. Prior Study Comparison: 02/11/2019 Bilateral Screening Mammogram, [facility]. 02/01/2021 Bilateral Screening Mammogram, [facility]. 03/08/2023 Bilateral MG 3D screening mammo w/cad, [facility]. Tissue Density: Left: There are scattered fibroglandular densities. Findings: Analyzed By CAD. Circumscribed low density oval 8 mm nodule subareolar left breast anterior depth on spot compression views. A benign cyst is suspected. Further ultrasound evaluation recommended. Overall Assessment: Incomplete: need additional imaging evaluation, BI-RAD 0 Management: Diagnostic Breast Ultrasound of the left breast. Electronically signed and approved by: Yamil Leon M.D. Radiologist
== END | disposition home or self-care (01) ==
LOC: RADMAMWWP 10:57
PROVIDERS: ATTEND Family Medicine
DX: N63.20 Unspecified lump in the left breast, unspecified quadrant (principal); N63.42 Unspecified lump in left breast, subareolar; Z78.0 Asymptomatic menopausal state; Z80.3 Family history of malignant neoplasm of breast
CPT/HCPCS: 77061; 77065

== ENCOUNTER → 2023-04-07 | Outpatient (CLI) | payer BC ==
[2023-04-07 13:24] LABS: Basophils # (A) 0.03 X 10*3/uL (0.00-0.10); Basophils % (A) 0.5 %; Eosinophils # (A) 0.11 X 10*3/uL (0.04-0.35); Eosinophils % (A) 1.9 %; HCT 43.6 % (37.2-46.3); HGB 14.5 d/dL (12.0-15.0); Lymphocytes # (A) 1.64 X 10*3/uL (0.90-5.00); Lymphocytes % (A) 28.1 %; MCH 30.1 pg (27.0-32.0); MCHC 33.3 d/dL (32.0-37.0); MCV 90.5 FL (80.0-97.0); Mean Platelet Volume 9.9 FL (9.5-12.2); Monocytes # (A) 0.59 X 10*3/uL (0.20-1.00); Monocytes % (A) 10.1 %; NRBC Per 100 WBC 0 X 10*3/uL (0.00-0.01); Neutrophils # (A) 3.44 X 10*3/uL (1.80-7.70); Neutrophils % (A) 59.1 %; Platelet Count 205 X 10*3/uL (140-440); RBC 4.82 X 10*6/uL (4.10-5.20); RDW 12.6 % (11.5-14.5); WBC 5.83 X 10*3/uL (4.50-10.00)
[2023-04-07 13:43] LABS: ALT 53 U/L (8-44); AST 31 U/L (13-35); Albumin 4.7 d/dL (3.8-4.9); Albumin/Globulin Ratio 1.81 Ratio (1.60-3.17); Alkaline Phosphatase 71 U/L (41-126); Blood Urea Nitrogen 26.7 mg/dL (9.0-27.0); Calcium 9.9 mg/dL (8.7-10.3); Carbon Dioxide 22.9 mmol/L (21.6-31.8); Chloride 99 mmol/L (96-109); Chol/HDL Ratio 2.28 Ratio; Globulin 2.6 d/dL (1.6-3.3); Glucose 81 mg/dL (70-110); LDL Cholesterol,Calculated 58.8 mg/dL (0.0-131.0); Potassium 4.3 mmol/L (3.5-5.5); Sodium 137 mmol/L (135-145); T4, Free (Free Thyroxine) 1.43 ng/dL (0.80-1.80); Total Bilirubin 0.4 mg/dL (0.3-1.2); Total Protein 7.3 d/dL (6.2-8.2); VLDL Calculation 14.66 mg/dL (5.00-40.00)
[2023-04-09 22:14] LABS: HIV 2 AB Non-Reactive (Non-Reactive); HIV AB P24 Non-Reactive (Non-Reactive); HIV P24 AG Non-Reactive (Non-Reactive)
== END | disposition home or self-care (01) ==
LOC: LABWHC1 09:46
PROVIDERS: ATTEND Family Medicine
DX: Z11.4 Encounter for screening for human immunodeficiency virus [HIV] (principal); E11.9 Type 2 diabetes mellitus without complications
CPT/HCPCS: 36415; 80053; 80061; 83036; 84439; 84443; 85025; 87390

== ENCOUNTER → 2023-08-30 | Outpatient (CLI) | payer BC ==
--- NOTE | 2023-08-30 09:21 | XR ---
EXAMINATION TYPE: XR chest 2V DATE OF EXAM: 08/30/2023 COMPARISON: Prior chest x-ray from yesterday HISTORY: Cough. TECHNIQUE: Frontal and lateral views of the chest are obtained. FINDINGS: There is no suspicious new focal air space opacity, pleural effusion, or pneumothorax seen . The cardiac silhouette size is stable and within normal limits. The osseous structures are intac t. IMPRESSION: No acute pulmonary infiltrate. No significant change from prior.
== END | disposition home or self-care (01) ==
LOC: RADXRMAIN 08:36
PROVIDERS: ATTEND Otolaryngology
DX: R05.1 Acute cough (principal)
CPT/HCPCS: 71046

== ENCOUNTER → 2023-09-13 | Outpatient (CLI) | payer BC ==
--- NOTE | 2023-09-13 11:27 | MM ---
Reason for Exam: Follow-up at short interval from prior study. Last screening mammogram was performed 6 month(s) ago. Patient History: Menarche at age 10. Patient has no children. Postmenopausal. Maternal grandmother had breast cancer, age 73. Risk Values: Allegra 5 year model risk: 1.1%. NCI Lifetime model risk: 11.3%. Prior Study Comparison: 02/01/2021 Bilateral Screening Mammogram, [facility]. 03/08/2023 Bilateral MG 3D screening mammo w/cad, [facility]. 03/13/2023 Left MG 3D work up w/cad , [facility]. Tissue Density: Left: There are scattered fibroglandular densities. Findings: Analyzed By CAD. Low-density nodularity anterior central left breast on the CC view remains unchanged for 6 months. Likely corresponding to the debris-filled cyst seen on previous ultrasound. Reassess for one-year stability at the patient's annual exam. No significant change identified. Overall Assessment: Probably benign, BI-RAD 3 Management: Diagnostic Mammogram of both breasts in 6 months. Total one-year follow-up left breast and annual exam of the right breast. Results were given to the patient verbally at the time of exam. Patient should continue monthly self-breast exams. A clinical breast exam by your physician is recommended on an annual basis. This exam should not preclude additional follow-up of suspicious palpable abnormalities. Note on Allegra scores and lifetime risk: 1. A Allegra score greater than 3% is considered moderate risk. If this is the case, consider specialist referral to assess eligibility for a risk reducing agent. 2. If overall lifetime risk for the development of breast cancer is 20% or higher, the patient may qualify for future screening with alternating mammogram and breast MRI. Electronically signed and approved by: Yamil Leon M.D. Radiologist
== END | disposition home or self-care (01) ==
LOC: RADMAMWWP 10:51
PROVIDERS: ATTEND Family Medicine
DX: R92.322 Mammographic fibroglandular density, left breast (principal); Z78.0 Asymptomatic menopausal state; Z80.3 Family history of malignant neoplasm of breast
CPT/HCPCS: 77061; 77065

== ENCOUNTER 2024-01-09 08:01 | Day surgery (SDC) | payer BC ==
[2024-01-08 08:42] VITALS: BMI 31.9
[~2024-01-09 08:01] MED LIST changes: -ALBUTEROL NEB (CONC) 2.5 MG/0.5 ML INHALATION ONE; -ATROPINE SULFATE 0.4 MG/ML 1 ML VIAL IM ONE; -HYDROmorphone 0.5 MG/0.5 ML SYRINGE IVP PRN; -LIDOCAINE 2% (PF) 20 MG/ML 5 ML VIAL INHALATION ONE; -LIDOCAINE VISCOUS 300 MG/15 ML CUP MUCOUS MEM ONE
--- NOTE | 2024-01-09 08:35 | P.GSHP ---
History of Present Illness H&P Date: 01/09/24 CHIEF COMPLAINT: GERD and colon screen HISTORY OF PRESENT ILLNESS: The patient is a 48-year-old female who presents with gastroesophageal reflux disease and need for colon screen. Upper and lower endoscopy were offered for further evaluation and management. PAST MEDICAL HISTORY: Please see list. PAST SURGICAL HISTORY: Please see list. MEDICATIONS: Please see list. ALLERGIES: Please see list. SOCIAL HISTORY: No illicit drug use FAMILY HISTORY: No reports of Crohn disease or ulcerative colitis. REVIEW OF ORGAN SYSTEMS: CONSTITUTIONAL: No reports of fevers or chills. GI: Denies any blood in stools or constipation. PHYSICAL EXAM: VITAL SIGNS: Stable GENERAL: Well-developed pleasant in no acute distress. HEENT: No scleral icterus. Extraocular movements grossly intact. Moist buccal mucosa. NECK: Supple without lymphadenopathy. CHEST: Unlabored respirations. Equal bilateral excursions. CARDIOVASCULAR: Regular rate and rhythm. Distal 2+ pulses. ABDOMEN: Soft, nondistended. MUSCULOSKELETAL: No clubbing, cyanosis, or edema. ASSESSMENT: 1. Gastroesophageal reflux disease 2. Colon screen. PLAN: 1. 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, bronchiolitis obliterans, IDDM type II Last Myocardial Infarction Date:: 1997 History of Any Multi-Drug Resistant Organisms: VRE Date of last positivie culture/infection: 2011 MDRO Source:: stool Past Surgical History: Adenoidectomy, Cholecystectomy, Heart Catheterization With Stent, Hernia Repair, Tonsillectomy Additional Past Surgical History / Comment(s): 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 Pt has claustrophobia. Date of Last Stent Placement:: July 18, 2021 Smoking Status: Never smoker - Past Family History Father Additional Family Medical History / Comment(s): Fathr of a drug overdose. Mother Family Medical History: Coronary Artery Disease (CAD), Diabetes Mellitus Additional Family Medical History / Comment(s): Mother had CABG and aortic aneurysm repair. Medications and Allergies Home Medications Medication Instructions Recorded Confirmed Type Ezetimibe [Zetia] 10 mg PO DAILY 07/30/18 01/08/24 History Montelukast [Singulair] 10 mg PO HS 07/30/18 01/08/24 History buPROPion HCL [Wellbutrin XL] 300 mg PO DAILY 07/30/18 01/08/24 History lisinopriL [Prinivil] 5 mg PO HS 07/30/18 01/08/24 History Aspirin EC [Ecotrin Low Dose] 81 mg PO HS 09/20/21 01/08/24 History Empagliflozin [Jardiance] 25 mg PO DAILY 09/20/21 01/08/24 History Fexofenadine HCl [Tri Allergy] 180 mg PO DAILY 09/20/21 01/08/24 History Nitroglycerin Sl Tabs [Nitrostat] 0.4 mg PO Q5M PRN 09/20/21 01/08/24 History Rosuvastatin Calcium 40 mg PO HS 09/20/21 01/08/24 History Ipratropium-Albuterol Nebulize 3 ml INHALATION RT-QID 30 Days #90 09/26/21 01/08/24 Rx [Duoneb 0.5 mg-3 mg/3 ml Soln] ml Fluticasone/Umeclidin/Vilanter 1 puff INHALATION HS 08/24/22 01/08/24 History [Trelegy Ellipta 200-62.5-25] Insulin Glargine,Hum.rec.anlog 30 units SQ HS 08/24/22 01/08/24 History [Lantus Solostar Pen] hydroCHLOROthiazide 12.5 mg PO DAILY 08/24/22 01/08/24 History Acetaminophen Tab [Tylenol Tab] 1,000 mg PO Q6HR PRN #30 tablet 11/10/22 01/08/24 Rx Tirzepatide [Mounjaro] 2.5 mg SQ TU 01/08/24 01/08/24 History Allergies Allergy/AdvReac Type Severity Reaction Status Date / Time codeine Allergy Severe Rash/Hives Verified 01/09/24 08:35 Sulfa (Sulfonamide Allergy Intermediate Rash/Hives Verified 01/09/24 08:35 Antibiotics)
[2024-01-09] MEDS: LACTATED RINGERS 1,000 ML IV SCH (08:40)
[2024-01-09 08:50] LABS: Glucose,Whole Blood 94 mg/dL (70-110)
[2024-01-09 09:07] VITALS: RESP 16; TEMP 97.8
[2024-01-09] MEDS ORDERED: MIDAZOLAM 2 MG/2 ML VIAL ONE (09:22)
[2024-01-09] MEDS ORDERED: PROPOFOL 10 MG/ML 20 ML VIAL IV ONE (09:22)
--- NOTE | 2024-01-09 09:37 | P.PCN ---
Date of Procedure: 01/09/24 Description of Procedure: PREOPERATIVE DIAGNOSIS: Gastroesophageal reflux disease. POSTOPERATIVE DIAGNOSIS: Gastroesophageal reflux disease with erosive esophagitis Acute gastritis with bleeding Diaphragmatic hiatal hernia OPERATION: Esophagogastroduodenoscopy with biopsies along esophagus, antrum and duodenum SURGEON: Monika Rebollar MD ANESTHESIA: MAC. INDICATIONS: The patient is a 48-year-old female who presents with gastroesophageal reflux disease. Benefits and risks of the procedure were described. Informed consent was obtained. DESCRIPTION: The patient was brought into the endoscopy suite and laid in the left lateral decubitus position. An Olympus gastroscope was passed along the posterior oropharynx down to the distal esophagus where the squamocolumnar junction was encountered at 35 cm from the incisors. The stomach was entered and no bile reflux was found. Additional findings are listed below. Biopsies with cold forceps were obtained of the antrum. The first through third portion of the duodenum was examined. Retroflexion of the scope confirmed Hill grade 1 lower esophageal valve. The squamocolumnar junction demonstrated LA grade B erosive esophagitis. The stomach was desufflated. The patient tolerated the procedure well. FINDINGS: Squamocolumnar junction 35 cm from the incisors. Diaphragmatic hiatus at 38 cm. Hiatal hernia, 3 cm Hill grade 1 lower esophageal valve. LA grade B erosive esophagitis with biopsies obtained Biopsies obtained of the duodenum. Acute gastritis with bleeding with biopsies obtained RECOMMENDATIONS: Omeprazole 40 mg daily for 2 weeks
[2024-01-09 10:06] LABS: Glucose,Whole Blood 81 mg/dL (70-110)
--- NOTE | 2024-01-09 10:29 | P.PCN ---
Date of Procedure: 01/09/24 Description of Procedure: PREOPERATIVE DIAGNOSIS: Colonoscopy screening. POSTOPERATIVE DIAGNOSIS: Colonoscopy screening. OPERATION: Colonoscopy to the cecum, ileocecal valve and appendiceal orifice. SURGEON: Monika Rebollar MD. ANESTHESIA: MAC. INDICATIONS: The patient is a 48-year-old female who presents for colonoscopy screening. Benefits and risks were described and informed consent was obtained. DESCRIPTION OF PROCEDURE: The patient had undergone Sutab prep. The patient had been brought into the operating room and laid in the left lateral decubitus position. After adequate intravenous sedation, the rectum was examined with 2% lidocaine jelly. No external hemorrhoids were encountered. The rectal tone was within normal limits. No lesions were palpated in the rectal vault. An Olympus colonoscope was advanced until the cecum, ileocecal valve and appendiceal orifice were clearly viewed. The prep was good. No scattered diverticulosis was encountered. No colonic polyps were found. No evidence of focal colitis was found. Retroflexion of the scope demonstrated grade 1 internal hemorrhoids without active bleeding or inflammation. The colon was desufflated. The patient had tolerated the procedure well. Withdrawal time was over 6 minutes. FINDINGS: Aronchick preparation quality scale 2 (1-5) Internal hemorrhoids, grade 1 No external prolapsed hemorrhoids. No arteriovenous malformations. No adenomatous polyps. No focal colitis. RECOMMENDATIONS: Lower endoscopy in 5 years, 2028 Plan - Discharge Summary Discharge Rx Participant: No New Discharge Prescriptions: New Omeprazole [PriLOSEC] 40 mg PO DAILY #14 cap Continue Montelukast [Singulair] 10 mg PO HS Ezetimibe [Zetia] 10 mg PO DAILY buPROPion HCL [Wellbutrin XL] 300 mg PO DAILY lisinopriL [Prinivil] 5 mg PO HS Empagliflozin [Jardiance] 25 mg PO DAILY Rosuvastatin Calcium 40 mg PO HS Aspirin EC [Ecotrin Low Dose] 81 mg PO HS Ipratropium-Albuterol Nebulize [Duoneb 0.5 mg-3 mg/3 ml Soln] 3 ml INHALATION RT-QID 30 Days #90 ml Fluticasone/Umeclidin/Vilanter [Trelegy Ellipta 200-62.5-25] 1 puff INHALATION HS Tirzepatide [Mounjaro] 2.5 mg SQ TU Nitroglycerin Sl Tabs [Nitrostat] 0.4 mg PO Q5M PRN PRN Reason: Chest Pain Fexofenadine HCl [Tri Allergy] 180 mg PO DAILY Insulin Glargine,Hum.rec.anlog [Lantus Solostar Pen] 30 units SQ HS hydroCHLOROthiazide 12.5 mg PO DAILY Acetaminophen Tab [Tylenol] 1,000 mg PO Q6HR PRN #30 tablet PRN Reason: Pain Discharge Medication List Ezetimibe [Zetia] 10 mg PO DAILY 07/30/18 [History] Montelukast [Singulair] 10 mg PO HS 07/30/18 [History] buPROPion HCL [Wellbutrin XL] 300 mg PO DAILY 07/30/18 [History] lisinopriL [Prinivil] 5 mg PO HS 07/30/18 [History] Aspirin EC [Ecotrin Low Dose] 81 mg PO HS 09/20/21 [History] Empagliflozin [Jardiance] 25 mg PO DAILY 09/20/21 [History] Fexofenadine HCl [Tri Allergy] 180 mg PO DAILY 09/20/21 [History] Nitroglycerin Sl Tabs [Nitrostat] 0.4 mg PO Q5M PRN 09/20/21 [History] Rosuvastatin Calcium 40 mg PO HS 09/20/21 [History] Ipratropium-Albuterol Nebulize [Duoneb 0.5 mg-3 mg/3 ml Soln] 3 ml INHALATION RT-QID 30 Days #90 ml 09/26/21 [Rx] Fluticasone/Umeclidin/Vilanter [Trelegy Ellipta 200-62.5-25] 1 puff INHALATION HS 08/24/22 [History] Insulin Glargine,Hum.rec.anlog [Lantus Solostar Pen] 30 units SQ HS 08/24/22 [History] hydroCHLOROthiazide 12.5 mg PO DAILY 08/24/22 [History] Acetaminophen Tab [Tylenol] 1,000 mg PO Q6HR PRN #30 tablet 11/10/22 [Rx] Tirzepatide [Mounjaro] 2.5 mg SQ TU 01/08/24 [History] Omeprazole [PriLOSEC] 40 mg PO DAILY #14 cap 01/09/24 [Rx] Follow up Appointment(s)/Referral(s): Monika Rebollar MD [STAFF PHYSICIAN] - 02/05/24 3:00 pm Patient Instructions/Handouts: Gastritis (DC) Activity/Diet/Wound Care/Special Instructions: Repeat colonoscopy 5 years, 2028 Discharge Disposition: HOME SELF-CARE
[2024-01-09 10:33] VITALS: BP 97/65; PULSE 92
== END 2024-01-09 11:01 | disposition home or self-care (01) ==
LOC: ORWHC2ENDO 08:01
PROVIDERS: ATTEND Surgery Plastic and Reconstructive Surgery
DX: Z12.11 Encounter for screening for malignant neoplasm of colon (principal); K21.00 Gastro-esophageal reflux disease with esophagitis, without bleeding; K29.50 Unspecified chronic gastritis without bleeding; K44.9 Diaphragmatic hernia without obstruction or gangrene; Z79.899 Other long term (current) drug therapy
CPT/HCPCS: 88305; 45378; 43239; J2250; J2704

== ENCOUNTER → 2024-01-16 | Outpatient (CLI) | payer BC ==
[2024-01-16 10:46] LABS: African American GFR (CKD) >90 (>60 ml/min/1.73 sqM); Blood Urea Nitrogen 30 mg/dL (7-17); Non-African American GFR(CKD) >90 (>60 ml/min/1.73 sqM)
--- NOTE | 2024-01-22 13:08 | CT ---
EXAMINATION TYPE: CT chest w con CT DLP: 670 mGycm, Automated exposure control for dose reduction was used. DATE OF EXAM: 01/16/2024 11:18 AM COMPARISON: CT chest 07/04/2020 CLINICAL INDICATION:Female, 48 years old with history of R91.8 OTHER NONSPECIFIC ABNORMAL FINDING OF LUNG F; PHH, lung nodule TECHNIQUE: Multiple axial images were obtained through the chest. Sagittal and coronal reformats were created for review. Contrast used:100ml mL of Isovue 300 with IV Contrast (None if empty) Oral contrast used: (None if empty) FINDINGS: LUNGS/ PLEURA: Several areas of groundglass opacity another subtle patchy areas of interstitial thick ening in the apices. No focal consolidation. No pleural effusions. Within the right upper lobe there is a 4 mm nodule adjacent to a 5 mm nodule. A medial left upper lobe nodule measures 4 mm today and then the same nodule previously reported as 6 mm. AIRWAY: Patent and unremarkable. HEART: Size within normal limits. MEDIASTINUM: No gross evidence of adenopathy. VASCULATURE: No aortic aneurysm. MUSCULOSKELETAL: No acute osseous abnormalities SOFT TISSUES/LYMPH NODES: Unremarkable. LOWER NECK: No significant findings. UPPER ABDOMEN: No significant findings. . IMPRESSION: No acute process Three nodules identified, 2 right upper lobe and one left upper lobe which showed stability compared to previous report from 07/04/2022 indicating a benign process. Follow-up recommendations from the Fleischner Society indicate one-year stability adequate to determi ne benign process Follow up recommendations for incidental pulmonary nodules, if there are any, are per Fleischner?s [place] [employer] [employer] or [employer]. https://radiopaedia.org/articles/hphrmshfoo-dysszmv-[email or web address]-[email or web address]-[email or web address]?lang=us
== END | disposition home or self-care (01) ==
LOC: RADCTMAIN 10:02
PROVIDERS: ATTEND Internal Medicine Critical Care Medicine
DX: R91.8 Other nonspecific abnormal finding of lung field (principal)
CPT/HCPCS: 82565; 84520; 71260; 36415; Q9967

== ENCOUNTER → 2024-04-09 | Outpatient (CLI) | payer OTHER ==
--- NOTE | 2024-04-09 14:55 | MM ---
Reason for Exam: Additional evaluation requested from prior study. Last mammogram was performed 1 year(s) and 1 month(s) ago. Patient History: Menarche at age 10. Patient has no children. Postmenopausal. Maternal grandmother had breast cancer, age 73. Risk Values: Allegra 5 year model risk: 1.1%. NCI Lifetime model risk: 11.3%. Prior Study Comparison: 02/11/2019 Bilateral Screening Mammogram, [facility]. 02/01/2021 Bilateral Screening Mammogram, [facility]. 03/08/2023 Bilateral MG 3D screening mammo w/cad, [facility]. 03/13/2023 Left MG 3D work up w/cad LT, [facility]. 09/13/2023 Left MG 3D diag mammo w/cad LT, [facility]. Tissue Density: There are scattered areas of fibroglandular density. Findings: Analyzed By CAD. The pattern is symmetrical. Some vague increased markings in the anterior left breast, stable from comparison No suspicious groups of microcalcifications, spiculated or lobular masses, architectural distortion or other secondary signs of malignancy are mammographically apparent. Overall Assessment: Benign, BI-RAD 2 Management: Screening Mammogram of both breasts in 1 year. A negative mammogram report should not preclude additional follow up of suspicious palpable abnormalities. Patient should continue monthly self breast exam. A clinical breast exam by your physician is recommended on an annual basis and results should be correlated with mammographic findings. Note on Allegra scores and lifetime risk: 1. A Allegra score greater than 3% is considered moderate risk. If this is the case, consider specialist referral to assess eligibility for a risk reducing agent. 2. If overall lifetime risk for the development of breast cancer is 20% or higher, the patient may qualify for future screening with alternating mammogram and breast MRI. Electronically signed and approved by: Jonas Mujica D.O. Radiologis
== END | disposition home or self-care (01) ==
LOC: RADMAMWWP 10:45
PROVIDERS: ATTEND Family Medicine
DX: R92.8 Other abnormal and inconclusive findings on diagnostic imaging of breast (principal); R92.323 Mammographic fibroglandular density, bilateral breasts; Z78.0 Asymptomatic menopausal state; Z80.3 Family history of malignant neoplasm of breast
CPT/HCPCS: 77062; 77066

== ENCOUNTER → 2025-02-25 | Outpatient (CLI) | payer OTHER ==
[2025-02-25 11:06] LABS: African American GFR (CKD) >90 (>60 ml/min/1.73 sqM); Blood Urea Nitrogen 24 mg/dL (7-17); Non-African American GFR(CKD) 84 (>60 ml/min/1.73 sqM)
--- NOTE | 2025-02-28 20:02 | CT ---
EXAMINATION TYPE: CT chest w con DATE OF EXAM: 02/25/2025 11:36 AM COMPARISON: 07/04/2022, 01/16/2024 CLINICAL INDICATION: Female, 49 years old with history of R91.8 OTHER NONSPECIFIC ABNORMAL FINDING OF LUNG F, lung nodule TECHNIQUE: Axial images were obtained at 5 mm thick sections. Reconstructed images are reviewed on [employer] computer in the coronal plane. Contrast used:100 mL of Isovue 300 with IV Contrast, (none if empty) Oral contrast used: (none if empty) CT DLP: 273.6 mGycm, Automated exposure control for dose reduction was used. FINDINGS: Portion of the thyroid visualized is normal. There is a 0.8 cm density along the peripheral left apex. Series 4 image 7. There is a 0.6 cm nodule in the posterior medial right upper lung field with an adjacent smaller dens ity. These were present previously. There is a 0.6 cm nodular density within the lingula. Series 4 image 41 No mediastinal or hilar adenopathy is evident. The ascending aorta diameter at the level of the main pulmonary artery is 3.7 cm. The main pulmonary artery diameter at the bifurcation is 2.6 cm. Moderate coronary artery calcifications present. Limited CT sections are obtained through the upper abdomen. Abdomen is essentially unremarkable. IMPRESSION: 1. Stable appearing bilateral lung nodules. [facility], , 02/28/2025 7:59 PM
== END | disposition home or self-care (01) ==
LOC: RADCTMAIN 09:49
PROVIDERS: ATTEND Internal Medicine Critical Care Medicine
DX: R91.8 Other nonspecific abnormal finding of lung field (principal)
CPT/HCPCS: 82565; 84520; 71260; 36415; Q9967

== ENCOUNTER → 2025-03-31 | Outpatient (CLI) | payer OTHER ==
--- NOTE | 2025-03-31 09:11 | US ---
EXAMINATION TYPE: US liver DATE OF EXAM: 03/31/2025 COMPARISON: NONE CLINICAL INDICATION: Female, 49 years old with history of C92.00 ACUTE MYELOBLASTIC LEUKEMIA; Cholecy stectomy, Hernia repair TECHNIQUE: Grayscale and color Doppler imaging of the right upper quadrant. FINDINGS: EXAM MEASUREMENTS: Liver Length: 14.8cm Gallbladder Wall: Surgically absent cm CBD: 0.5cm color Doppler imaging was utilized to isolate the common bile duct for measurement. Right Kidney: 9.2x3.8x4.2cm ROLL CAPPER NOTES: limited exam due to overlying bowel Pancreas: Tail obscured by overlying bowel gas Liver: Increased attenuation, decreased visualization of vessels suggestive of fatty infiltrate, sli ghtly difficult to penetrate, heterogenous course echotexture Gallbladder: Surgically absent CBD: wnl Right Kidney: No hydronephrosis or masses seen The visualized portions of the pancreas unremarkable. The liver demonstrates diffuse increased attenu ation with heterogenous coarse echotexture. There is slight difficulty to penetrate. No focal lesion identified. The gallbladder is surgically absent. Common bile duct is within normal limits. Right kid nancy demonstrates no hydronephrosis, shadowing calculus or solid mass. IMPRESSION: 1. No ultrasound evidence for acute process. 2. Heterogenous increased echogenicity of the liver consistent with hepatocellular disease. Most comm only seen with hepatic steatosis. No focal lesion identified. 3. Postcholecystectomy changes. [facility], , 03/31/2025 9:09 AM
== END | disposition home or self-care (01) ==
LOC: RADUSWWP 08:35
PROVIDERS: ATTEND Internal Medicine Hematology & Oncology
DX: C92.00 Acute myeloblastic leukemia, not having achieved remission (principal); K76.89 Other specified diseases of liver; Z90.49 Acquired absence of other specified parts of digestive tract
CPT/HCPCS: 76705